=== PATIENT | female | born 1975 | race Caucasian/White ===

== ENCOUNTER 2016-03-09 10:01 | Emergency (ER) | payer OTHER ==
[2016-03-09 10:05] VITALS: BMI 29.8
--- NOTE | 2016-03-09 10:35 | PDOC ---
History of Present Illness - General History Source: Patient Exam Limitations: No Limitations - History of Present Illness Initial Comments: 03/09/16 10:36 The patient is a 40-year-old woman, accompanied by family, with a significant past medical history of anemia, gastric ulcers, gastroesophageal reflux disease who presents to the emergency department via walk-in for further evaluation of abdominal pain for 4 days. No trauma., recent injury. As per patient, she reports experiencing lower abdominal pain that has progressively worsened since onset, as she now experiences nausea and vomiting. Patient states that she believes that her pain is secondary to her history of cysts, as she had experienced similar pain in the past. Patient reports she had two surgeries, for which she does not menstruate anymore. No other complaints. No fever, chills , weakness, chest pain, urinary symptoms. Allergies: None Known Past Surgical History: Appendectomy. Cholecystectomy. Social History: No tobacco, ETOH and recreational drug use. Primary Care Physician: Dr. Raymond Aguayo [phone] <Vonnie No - Last Filed: 03/09/16 15:32> <Emmanuelle Ann - Last Filed: 03/10/16 10:10> - General Chief Complaint: Pain, Acute Stated Complaint: ABD PAIN, NAUSEA Time Seen by Provider: 03/09/16 10:29 Past History <Vonnie No - Last Filed: 03/09/16 15:32> - Past Medical History Anemia: Yes Asthma: No Cancer: No Cardiac Disorders: No CVA: No COPD: No CHF: No Dementia: No Diabetes: No GI Disorders: Yes (H/O ULCERS & ACID REFLUX) Disorders: No HTN: No Hypercholesterolemia: No Liver Disease: No Seizures: No Thyroid Disease: No - Surgical History Abdominal Surgery: No Appendectomy: Yes Cardiac Surgery: No Cholecystectomy: Yes Lung Surgery: No Neurologic Surgery: No Orthopedic Surgery: No - Psycho/Social/Smoking Cessation Hx Anxiety: No Suicidal Ideation: No Smoking Status: No Smoking History: Never smoked Have you smoked in the past 12 months: No Number of Cigarettes Smoked Daily: 0 Information on smoking cessation initiated: No Hx Alcohol Use: No Drug/Substance Use Hx: No Substance Use Type: None Hx Substance Use Treatment: No <Emmanuelle Ann - Last Filed: 03/10/16 10:10> - Past Medical History Allergies/Adverse Reactions: Allergies Allergy/AdvReac Type Severity Reaction Status Date / Time No Known Drug Allergies Allergy Verified 03/09/16 10:01 Home Medications: Ambulatory Orders Omeprazole [Prilosec (RX)] 20 mg PO DAILY 05/17/14 Cephalexin Monohydrate [Keflex -] 500 mg PO BID #14 capsule 03/09/16 Ondansetron [Zofran -] 4 mg PO TID #21 tablet 03/09/16 Oxycodone HCl/Acetaminophen [Percocet 5-325 mg Tablet] 1 tab PO Q6H PRN #12 tablet MDD 4 tabs 03/09/16 Review of Systems - Review of Systems Able to Perform ROS?: Yes Comments:: 03/09/16 10:36 GENERAL/CONSTITUTIONAL: No fever or chills. No weakness. HEAD, EYES, EARS, NOSE AND THROAT: No change in vision. No ear pain or discharge. No sore throat. CARDIOVASCULAR: No chest pain or shortness of breath. RESPIRATORY: No cough, wheezing, or hemoptysis. GASTROINTESTINAL: Yes: +Abdominal Pain. +Nausea. +Vomiting. No diarrhea or constipation. GENITOURINARY: No dysuria, frequency, or change in urination. MUSCULOSKELETAL: No joint or muscle swelling or pain. No neck or back pain. SKIN: No rash NEUROLOGIC: No headache, vertigo, loss of consciousness, or change in strength/ sensation. ENDOCRINE: No increased thirst. No abnormal weight change. HEMATOLOGIC/LYMPHATIC: No anemia, easy bleeding, or history of blood clots. ALLERGIC/IMMUNOLOGIC: No hives or skin allergy. <Vonnie No - Last Filed: 03/09/16 15:32> *Physical Exam - Vital Signs Last Vital Signs Temp Pulse Resp BP Pulse Ox 98.0 F 89 18 124/80 99 03/09/16 10:02 03/09/16 10:02 03/09/16 10:02 03/09/16 10:02 03/09/16 10:02 - Physical Exam Comments: 03/09/16 10:36 GENERAL: Awake, alert, and fully oriented, in no acute distress HEAD: No signs of trauma EYES: PERRLA, EOMI, sclera anicteric, conjunctiva clear ENT: Auricles normal inspection, hearing grossly normal, nares patent, oropharynx clear without exudates. Moist mucosa NECK: Normal ROM, supple, no lymphadenopathy, JVD, or masses LUNGS: Breath sounds equal, clear to auscultation bilaterally. No wheezes, and no crackles HEART: Regular rate and rhythm, normal S1 and S2, no murmurs, rubs or gallops ABDOMEN: Soft,there is moderate right lower quadrant tenderness to palpation, normoactive bowel sounds. No guarding, no rebound. No masses EXTREMITIES: Normal range of motion, no edema. No clubbing or cyanosis. No cords, erythema, or tenderness NEUROLOGICAL: Cranial nerves II through XII grossly intact. Normal speech <Vonnie No - Last Filed: 03/09/16 15:32> - Vital Signs Last Vital Signs Temp Pulse Resp BP Pulse Ox 98.0 F 89 18 124/80 99 03/09/16 10:02 03/09/16 10:02 03/09/16 10:02 03/09/16 10:02 03/09/16 10:02 <Emmanuelle Ann - Last Filed: 03/10/16 10:10> ED Treatment Course - LABORATORY CBC & Chemistry Diagram: 03/09/16 11:14 03/09/16 11:14 - RADIOLOGY Radiograph Interpretation: 03/09/16 15:32 EXAM: US/TRANSVAGINAL ULTRASOUND IMPRESSION: Pelvis ultrasound, transvesical and transvaginal. Compared to prior pelvis ultrasound dated 11/05/2013 The uterus measures 8 x 4.7 cm on the transvaginal images. There is a hypoechoic mass in the posterior myometrium measuring 2.1 cm consistent with a fibroid. Tiny echogenic densities at the junction of the lower uterine segment and cervical canal suggestive of tiny calcifications which are nonspecific. Endometrial stripe measures 7 mm in thickness. Note is made of a couple of tiny nabothian cysts with the largest measuring 4.5 mm. Small myometrial cyst at the fundus measuring 9 mm. Right ovary measures 2.5 x 1.7 cm with a simple cyst/dominant follicle measuring 9 x 6 mm and normal vascular flow. The left ovary measures 2.1 x 1.5 cm with a small cyst/dominant follicle measuring 8 x 8 mm with normal vascular flow. Note is made of an anechoic tubular like structure in the left adnexa that may represent a dilated fallopian tube/hydrosalpinx measuring 1.3 cm <Vonnie No - Last Filed: 03/09/16 15:32> - LABORATORY CBC & Chemistry Diagram: 03/09/16 11:14 03/09/16 11:14 <Emmanuelle Ann - Last Filed: 03/10/16 10:10> Medical Decision Making - Medical Decision Making Pain has improved with pain medication. Ultrasound shows no signs of torsion. Results discussed with patient at bedside. 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 Gave her a copy of her results for follow- up. Patient tolerated PO. Stable for DC home. <Emmanuelle Ann - Last Filed: 03/10/16 10:10> *DC/Admit/Observation/Transfer - Attestations Scribe Attestion: 03/09/16 10:36 Documentation prepared by Vonnie No, acting as medical coding instructor for Emmanuelle Ann MD. <Vonnie No - Last Filed: 03/09/16 15:32> - Discharge Dispostion Admit: No <Emmanuelle Ann - Last Filed: 03/10/16 10:10> Diagnosis at time of Disposition: Urinary tract infection Qualifiers: Urinary tract infection type: site unspecified Hematuria presence: without hematuria Qualified Code(s): N39.0 - Urinary tract infection, site not specified Ovarian cyst Qualifiers: Laterality: bilateral Qualified Code(s): N83.20 - Unspecified ovarian cysts - Discharge Dispostion Disposition: HOME Condition at time of disposition: Stable - Prescriptions Prescriptions: Cephalexin Monohydrate [Keflex -] 500 mg PO BID #14 capsule Oxycodone HCl/Acetaminophen [Percocet 5-325 mg Tablet] 1 tab PO Q6H PRN #12 tablet MDD 4 tabs PRN Reason: Severe Pain Ondansetron [Zofran -] 4 mg PO TID #21 tablet - Referrals Referrals: Raymond Aguayo MD [Primary Care Provider] - - Patient Instructions Printed Discharge Instructions: DI for Urinary Tract Infection (UTI), DI for Ovarian Cyst - Post Discharge Activity Work/School Note: Back to Work
[2016-03-09] MEDS ORDERED: SODIUM CHLORIDE 1,000 ML IV STA (10:36)
[2016-03-09] MEDS ORDERED: ONDANSETRON 4 MG/2 ML VIAL IVPUSH ONE (10:36)
[2016-03-09] MEDS ORDERED: morphine CARPU-JECT 4 MG/1 ML DISP.SYRIN IVPUSH ONE (10:36)
[2016-03-09] MEDS ORDERED: ONDANSETRON 4 MG/2 ML VIAL ONE (11:07)
[2016-03-09] MEDS ORDERED: morphine CARPU-JECT 4 MG/1 ML DISP.SYRIN ONE (11:07)
[2016-03-09 11:30] LABS: BASOPHIL 1.4 % (0-2.0); EOSINOPHIL 2.9 % (0-4.5); MCHC 33.6 g/dl (32.0-36.0); MEAN CELL VOLUME 89.2 fl (80-96); MEAN PLT VOLUME 8.3 fl (7.5-11.1); NEUTROPHILS 52.7 % (42.8-82.8); PLATELET COUNT 270 K/MM3 (134-434); RDW 13.3 % (11.6-15.6); WHITE BLOOD COUNT 5.1 K/mm3 (4.0-10.0)
[2016-03-09 11:32] LABS: URINE APPEARANCE CLOUDY; URINE BILIRUBIN NEGATIVE (NEGATIVE); URINE COLOR YELLOW; URINE GLUCOSE (UA) NEGATIVE (NEGATIVE); URINE KETONE NEGATIVE (NEGATIVE); URINE NITRITE NEGATIVE (NEGATIVE); URINE PROTEIN NEGATIVE (NEGATIVE); URINE UROBILINOGEN NEGATIVE E.U./dl (0.2-1.0)
[2016-03-09 11:34] LABS: URINE BLOOD 2+ (NEGATIVE); URINE LEUK ESTERASE 2+ (NEGATIVE)
[2016-03-09 11:36] LABS: URINE BACTERIA FEW /hpf (NONE SEEN); URINE MUCUS MANY; URINE RBC 10 /hpf (0-3); URINE WBC 20 /hpf (3-5); YEAST RARE
[2016-03-09 11:58] LABS: ALBUMIN 3.5 g/dl (3.4-5.0); ALK PHOS 78 U/L (45-117); ANION GAP 9 (8-16); BILIRUBIN,TOTAL 0.4 mg/dL (0.2-1.0); CALCIUM 8.5 mg/dL (8.5-10.1); CO2 29 mmol/L (21-32); CREATININE 0.6 mg/dL (0.55-1.02); GLUCOSE,RANDOM 91 mg/dL (74-106); SGOT/AST 14 U/L (15-37); SGPT/ALT 22 U/L (12-78); TOT PROT 7.2 g/dl (6.4-8.2)
[2016-03-09] MEDS ORDERED: CEFTRIAXONE 1 GM in DEXTROSE 5%-WATER - 50 ML IVPB ONE (12:52)
[2016-03-09] MEDS ORDERED: CEFTRIAXONE 50 ML ONE (13:22)
[2016-03-09 16:03] VITALS: BP 136/81; PULSE 74; TEMP 97.8
== END 2016-03-09 16:02 | disposition home or self-care (01) ==
LOC: JER 10:01
PROC: 3E03329 Introduction of Other Anti-infective into Peripheral Vein, Percutaneous Approach (ICD-10-PCS; principal; 2016-03-09)
PROC: 3E033NZ Introduction of Analgesics, Hypnotics, Sedatives into Peripheral Vein, Percutaneous Approach (ICD-10-PCS; 2016-03-09)
PROC: 3E033GC Introduction of Other Therapeutic Substance into Peripheral Vein, Percutaneous Approach (ICD-10-PCS; 2016-03-09)
DX: N39.0 Urinary tract infection, site not specified (principal); N83.292 Other ovarian cyst, left side; N83.291 Other ovarian cyst, right side; D64.9 Anemia, unspecified; K21.9 Gastro-esophageal reflux disease without esophagitis
CPT/HCPCS: 36415; 76830-TC; 80053; 81003; 81015; 83690; 84703; 85025; 87086; 96365; 96375; 99283-25

== ENCOUNTER 2016-09-09 12:42 | Emergency (ER) | payer OTHER ==
[2016-09-09 12:56] VITALS: BP 136/84; PULSE 74; TEMP 97.8; BMI 29.8
[2016-09-09] MEDS ORDERED: ALBUTEROL SO4 2.5/IPRATROPIUM 0.5 INH SOL 3 ML VIAL.NEB. NEB ONE (13:17)
--- NOTE | 2016-09-09 13:28 | PDOC ---
History of Present Illness - General Chief Complaint: Asthma Stated Complaint: SOB (ASTHMA) Time Seen by Provider: 09/09/16 13:14 - History of Present Illness Initial Comments: 09/09/16 13:33 Pt. is a 41 y/o female with PMH of who presents to the ED c/o chest tightness and shortness of breath. Pt. states that she felt her symptoms start last night so she tried using her Qvar inhaler. She states that it did not help her symptoms. Pt. states she ran out of her albuterol inhaler. Pt. states that her asthma was diagnosed a few months ago. She has never been hospitalized for her asthma, nor has she been intubated. Denies fevers, chills, malaise, chest pain, palpitations, light headedness, N/V/D. Past History - Travel Traveled outside of the country in the last 30 days: No Close contact w/someone who was outside of country & ill: No - Past Medical History Allergies/Adverse Reactions: Allergies Allergy/AdvReac Type Severity Reaction Status Date / Time No Known Drug Allergies Allergy Verified 09/09/16 12:53 morphine AdvReac Mild Itching Verified 09/09/16 12:53 Home Medications: Ambulatory Orders Omeprazole [Prilosec (RX)] 20 mg PO DAILY 05/17/14 Cephalexin Monohydrate [Keflex -] 500 mg PO BID #14 capsule 03/09/16 Ondansetron [Zofran -] 4 mg PO TID #21 tablet 03/09/16 Oxycodone HCl/Acetaminophen [Percocet 5-325 mg Tablet] 1 tab PO Q6H PRN #12 tablet MDD 4 tabs 03/09/16 Albuterol Sulfate Inhaler - [Ventolin HFA Inhaler -] 1 - 2 inh PO Q4H #1 inhaler 09/09/16 Anemia: Yes Asthma: Yes Cancer: No Cardiac Disorders: No CVA: No COPD: No CHF: No Dementia: No Diabetes: No GI Disorders: Yes (H/O ULCERS & ACID REFLUX) Disorders: No HTN: No Hypercholesterolemia: No Liver Disease: No Seizures: No Thyroid Disease: No - Surgical History Abdominal Surgery: No Appendectomy: Yes Cardiac Surgery: No Cholecystectomy: Yes Lung Surgery: No Neurologic Surgery: No Orthopedic Surgery: No - Psycho/Social/Smoking Cessation Hx Anxiety: No Suicidal Ideation: No Smoking Status: No Smoking History: Never smoked Have you smoked in the past 12 months: No Number of Cigarettes Smoked Daily: 0 Information on smoking cessation initiated: No Hx Alcohol Use: No Drug/Substance Use Hx: No Substance Use Type: None Hx Substance Use Treatment: No Review of Systems - Review of Systems Able to Perform ROS?: Yes Is the patient limited Bulgarian proficient: No Constitutional: No: Chills, Fever, Weakness Respiratory: Yes: Cough, Shortness of Breath, Wheezing Cardiac (ROS): Yes: Chest Tightness. No: Chest Pain, Lightheadedness, Palpitations ABD/GI: No: Diarrhea, Nausea, Vomiting All Other Systems: Reviewed and Negative *Physical Exam - Vital Signs Last Vital Signs Temp Pulse Resp BP Pulse Ox 97.8 F 74 16 136/84 100 09/09/16 12:54 09/09/16 12:54 09/09/16 12:54 09/09/16 12:54 09/09/16 12:54 - Physical Exam General Appearance: Yes: Nourished, Appropriately Dressed, Other (Sitting on exam bed, breathing easily, able to speak in full sentences. ). No: Apparent Distress Respiratory/Chest: positive: Decreased Breath Sounds (to the bases), Rhonchi ( scattered rhonchi at the bases). negative: Respiratory Distress, Accessory Muscle Use Cardiovascular: positive: Regular Rhythm, Regular Rate, S1, S2 (present). negative: Murmur Neurologic: positive: electronic video games servicer II-XII NML intact, Fully Oriented, Alert, Normal Mood/ Affect, Normal Response, Motor Strength 5/5 Medical Decision Making - Medical Decision Making 09/09/16 13:37 Patient is a 41-year-old female with past medical history of asthma presenting to the emergency department with shortness of breath and chest tightness. She has decreased lung sounds at the bases with scattered rhonchi. Will order one DuoNeb treatment now for her asthma exacerbation. Will reevaluate her when treatment has finished. Described to patient that albuterol inhaler as necessary and she feels short of breath. Her Qvar inhaler is not a rescue inhaler. 09/09/16 14:24 Pt. feels better after treatment. Lung sounds now reach the bases. Will discharge home at this time with a new prescription for an albuterol inhaler. Educated pt on inhaler use. Pt. understands all discharge instructions and all questions were answered at this time. *DC/Admit/Observation/Transfer Diagnosis at time of Disposition: Asthma exacerbation - Discharge Dispostion Disposition: HOME Condition at time of disposition: Improved Admit: No - Prescriptions Prescriptions: Albuterol Sulfate Inhaler - [Ventolin HFA Inhaler -] 1 - 2 inh PO Q4H #1 inhaler - Referrals Referrals: Raymond Aguayo MD [Primary Care Provider] - - Patient Instructions Printed Discharge Instructions: Asthma -- Adult Additional Instructions: You had a flare of your asthma. You were given a treatment in the ED today and your ventolin inhaler was refilled. Your ventolin inhaler is your rescue inhaler. Your prescribed Qvar inhaler is for daily use and should not be used when you feel an attack. Use your ventolin inhaler every four hours for the next 24 hours. Follow up with your primary care doctor in the next 72 hours. Return to the ED if you have shortness of breath, chest pain, fevers, chills, or any changes in your symptoms. - Post Discharge Activity Work/School Note: Back to Work
[2016-09-09] MEDS ORDERED: ALBUTEROL SO4 6.7 GM HFA INHALER IH PRN (14:14)
== END 2016-09-09 14:33 | disposition home or self-care (01) ==
LOC: JERFT 12:42 → JER 12:42 → JERFT 14:33
PROC: 3E0F7GC Introduction of Other Therapeutic Substance into Respiratory Tract, Via Natural or Artificial Opening (ICD-10-PCS; principal; 2016-09-09)
DX: J45.901 Unspecified asthma with (acute) exacerbation (principal)
CPT/HCPCS: 94640; 99281-25

== ENCOUNTER 2016-09-24 20:08 | Emergency (ER) | payer OTHER ==
[2016-09-24 20:15] VITALS: BP 140/77; PULSE 78; TEMP 97.8; BMI 30.8
[2016-09-24] MEDS ORDERED: RALTEGRAVIR POTASSIUM 400 MG TAB PO ONE (20:53)
[2016-09-24] MEDS ORDERED: EMTRICITABINE 200MG/TENOFOVIR 300MG PO ONE (20:53)
[2016-09-24] MEDS ORDERED: TETANUS AND DIPHTHERIA TOXOID 0.5 ML DISP.SYRIN IM ONE (20:53)
--- NOTE | 2016-09-24 21:05 | PDOC ---
Post Exposure HPI - General Chief Complaint: Blood/Body Fluid Exposure [facility] Stated Complaint: WORK RELATED Time Seen by Provider: 09/24/16 20:53 History Source: Patient Exam Limitations: No Limitations - History of Present Illness Initial Comments: 09/24/16 22:20 MY CHIEF COMPLAINT: Needlestick injury at work to right middle finger at work tonight HISTORY OF PRESENT ILLNESS: PATIENT is a 41-year-old female with a history of GERD and asthma here today due to having a needlestick injury to her right middle distal palmar finger at work tonight. Patient is an employee of [employer] works [employer]CRUZ [employer]ATH[employer]. She reports that she was using a butterfly with a 21-gauge needle prior to [facility]. Patient reports that area bled immediately and she cleansed it with antibacterial soap and water. Patient reports that she is up-to-date with tetanus. Patient is unsure whether or not she received all 3 hepatitis B vaccines. She denies any chance of had tubal ligation. Source individuals blood was not tested for HIV or hepatitis I SPOKE WITH JACQUES CARLOS RN SHE REPORTED that HIV test was not done on source individual or any hepatitis profiles. I also spoke with Dr. Alvarado Cheatham who reported that she was unable to get these tests due to branch office administrator Jesica Toro's stating that this would not be done and they're office setting JACQUES CARLOS called source individual and source individual will come to emergency room tomorrow to have HIV testing and hepatitis profile. 09/24/16 22:37 09/24/16 23:17 09/24/16 23:20 09/24/16 23:22 Timing: just prior to arrival (6:30 PM) Severity: mild Exposed Location: Right: Finger(s) (MIDDLE DISTAL PALMAR ASPECT) Assessing Significant Risk PEP: Yes Percutaneous (MIDDLE FINGER RT. DISTAL PALMAR ASPECT) Past History - Past Medical History Allergies/Adverse Reactions: Allergies No Known Drug Allergies Allergy (Verified 09/24/16 20:12) morphine Adverse Reaction (Mild, Verified 09/24/16 20:12) Itching Home Medications: Ambulatory Orders Omeprazole [Prilosec (RX)] 20 mg PO DAILY 05/17/14 General: Yes: asthma, GERD Surgical History: Yes: No Surgical History - Reproductive History LMP: 12/05/11 - Immunization History Tetanus Status: Unknown - Social History Smoking History: No Smoking Status: Never smoked Number of Ciarettes Per Day: 0 Alcohol Use: none Drug Use: none Review of Systems - Review of Systems Able to Perform ROS?: Yes Constitutional: No: Symptoms Reported HEENTM: No: Symptoms Reported Respiratory: No: Symptoms reported Cardiac (ROS): No: Symptoms Reported ABD/GI: No: Symptoms Reported : No: Symptoms Reported Musculoskeletal: No: Symptoms Reported Integumentary: Yes: Other (MIDDLE DISTAL RT. FINGER PALMAR ASPECT) Neurological: No: Symptoms reported *Physical Exam - Vital Signs Last Vital Signs Temp Pulse Resp BP Pulse Ox 97.8 F 78 18 140/77 99 09/24/16 20:12 09/24/16 20:12 09/24/16 20:12 09/24/16 20:12 09/24/16 20:12 - Physical Exam General Appearance: Yes: Appropriately Dressed Respiratory/Chest: positive: Lungs Clear, Normal Breath Sounds. negative: Chest Tender, Respiratory Distress Cardiovascular: positive: Regular Rhythm, Regular Rate, S1, S2 Integumentary: positive: Other (MIDDLE RT. DISTAL PALMAR FINGER NEEDLESTICK ) Post Exposure - ED Protocol - Exposure Treatment Washing/Decontamination: Soap/Water Source Patient HIV Status:: Unknown Is PEP indicated?: Yes Prophylaxis for HIV discussed?: Yes Prophylaxis given?: Yes Prophylaxis refused?: Yes Treatment Given:: Truvada (Tenof+Emtricita), Isentress (Raltegravir) Drug(s) Information Sheets given:: Yes Baseline bloods drawn prophylaxis:(use *Exposure-Hosp Emp): Yes Additional Treatment:: HBIG - Referrals Employee Referred to Employee Health:: Yes Employee Referred to Infectious Disease Specialist:: Dr. Martinez Medical Decision Making - Medical Decision Making 09/24/16 22:19 PATIENT is a 41-year-old female with a history of GERD and asthma here today due to having a needlestick injury to her right middle distal palmar finger at work tonight. Patient is an employee of [employer] works [place] [employer]. She reports that she was using a butterfly with a 21-gauge needle prior to [facility]. Patient reports that area bled immediately and she cleansed it with antibacterial soap and water. Patient reports that she is up-to -date with tetanus. Patient is unsure whether or not she received all 3 hepatitis B vaccines. She denies any chance of had tubal ligation. Source individuals blood was not tested for HIV or hepatitis exposure needlestick rt. middle finger at work today PLAN: URINE HCG NEG NEEDLESTICK EXPOSURE LABS I SPOKE WITH JACQUES CARLOS RN SHE REPORTED that HIV test was not done on source individual or any hepatitis profiles. I also spoke with Dr. Saeid Cheatham who reported that she was unable to get these test due to branch office administrator Jesica Toro's stating that this would not be done and they're office setting JACQUES CARLOS called source individual and source individual will come to emergency room tomorrow to have HIV testing and hepatitis profile. PEP medication given Insentress 400 mg po now Truvada 1 tab given now hepatitis B immunoglobulin 4.7 Ml IM 09/24/16 22:37 09/24/16 23:20 09/24/16 23:22 09/24/16 23:22 09/24/16 23:24 *DC/Admit/Observation/Transfer Diagnosis at time of Disposition: Needle stick injury of finger of right hand Qualifiers: Encounter type: initial encounter Qualified Code(s): S61.239A - Puncture wound without foreign body of unspecified finger without damage to nail, initial encounter - Discharge Dispostion Disposition: HOME Condition at time of disposition: Stable - Referrals Referrals: Truong Martinez MD [Staff Physician] - Raymond Aguayo MD [Primary Care Provider] - - Patient Instructions Additional Instructions: You must follow up with occupational health tomorrow You can also follow up with Dr.CRUZ CHEATHAM Continue to take medication as prescribed given to you to here today Follow up with infectious disease as soon as possible Patient voiced understanding of discharge instructions and all questions were answered - Post Discharge Activity Work/School Note: Back to Work
[2016-09-24] MEDS ORDERED: HEPATITIS B IMMUNE GLOBULIN 5 ML VIAL IM ONE (21:25)
[2016-09-24 21:34] LABS: BASOPHIL 1.2 % (0-2.0); MCH 30.2 pg (25.7-33.7); MCHC 34.3 g/dl (32.0-36.0); MEAN PLT VOLUME 8.7 fl (7.5-11.1); NEUTROPHILS 53.9 % (42.8-82.8); PLATELET COUNT 259 K/MM3 (134-434); RDW 13.3 % (11.6-15.6); WHITE BLOOD COUNT 7.6 K/mm3 (4.0-10.0)
[2016-09-24 21:59] LABS: ALBUMIN 3.9 g/dl (3.4-5.0); ANION GAP 8 (8-16); CALCIUM 9.1 mg/dL (8.5-10.1); CHOLESTEROL 242 mg/dL (50-200); CO2 30 mmol/L (21-32); CREATININE 0.7 mg/dL (0.55-1.02); GLUCOSE,RANDOM 92 mg/dL (74-106); LDH 170 U/L (84-246); SGOT/AST 17 U/L (15-37); SGPT/ALT 27 U/L (12-78); TOT PROT 7.7 g/dl (6.4-8.2)
[2016-09-24 22:00] LABS: ALK PHOS 84 U/L (45-117); BILIRUBIN,TOTAL 0.3 mg/dL (0.2-1.0)
[2016-09-24] MEDS ORDERED: HIV POST EXPOSURE PROPHYLAXIS KIT PO ONE (22:05)
[2016-09-24 22:37] LABS: HIV 1 & 2 AB NEGATIVE; HIV 1 AGp24 NEGATIVE
[2016-09-26 06:10] LABS: HEP B SURFACE AB Non Reactive (.)
== END 2016-09-24 22:46 | disposition home or self-care (01) ==
LOC: JERFT 20:08
PROC: 3E0234Z Introduction of Serum, Toxoid and Vaccine into Muscle, Percutaneous Approach (ICD-10-PCS; principal; 2016-09-24)
DX: S61.232A Puncture wound without foreign body of right middle finger without damage to nail, initial encounter (principal); W46.1XXA Contact with contaminated hypodermic needle, initial encounter; Y93.F9 Activity, other caregiving; Y92.238 Other place in hospital as the place of occurrence of the external cause; Y99.0 Civilian activity done for income or pay
CPT/HCPCS: 36415; 80053; 82465; 82977; 83615; 84100; 84478; 84703; 85025; 86704; 86706; 86803; 87340; 87389; 99281-25

== ENCOUNTER 2016-12-02 15:08 | Emergency (ER) | payer OTHER ==
[2016-12-02 15:34] VITALS: BP 121/73; PULSE 95; TEMP 98; BMI 28.8
--- NOTE | 2016-12-02 15:38 | PDOC ---
History of Present Illness - General History Source: Patient Exam Limitations: No Limitations - History of Present Illness Initial Comments: 12/02/16 15:47 The patient i s 41 year old female with significant history of appendicitis s/p appendectomy, cholecystitis s/p cholecystectomy, uterine fibroids, who presents to the ED complaining of approximately 1 week of progressively worsening left lower quadrant pain. The patient reports she noticed hematuria approximately 1 week ago and was started on Ciprofloxacin by her doctor. Since then her hematuria has resolved but she has noticed worsening left lower quadrant pain. She describes the pain as intermittent with episodes lasting several minutes at a time, ranked 10/10 in intensity. The patient also reports associated frequency and urgency of urination. She endorses chills, no fever. She denies nausea, vomiting, or diarrhea. No suprapubic pain or flank pain. LMP was approximately 5 years ago. <Meena Parra - Last Filed: 12/02/16 15:46> - History of Present Illness Initial Comments: 12/02/16 18:21 Physical exam reveals well-developed well-nourished no acute distress cheerful and cooperative. No pain at present Afebrile, vital signs normal HEENT WNL Neck supple without bruit mass or nodes Lungs clear CV regular without murmur rub or gallop Abdomen nondistended. Normal bowel sounds. Soft without mass tenderness or organomegaly. There is mild suprapubic tenderness without guarding or rebound. No CVAT Extremities no CCE Neurological intact Skin clear, no rash, adequate turgor and wet mucous membranes Pelvic exam reveals normal external genitalia. Multiparous cervix, without lesions. Moderate amount of white mucoid discharge, no erythema or induration of the vaginal mucosa suggestive of vaginitis. No cervical motion tenderness. No adnexal masses or tenderness on exam. Impression: Urinary tract symptoms persist and for approximately 1 week, cultures positive for Escherichia coli, sensitive to everything, on Cipro for several days. Still has urgency and frequency but no dysuria. Pain is intermittent, crampy, left-sided, and lasts for only minutes, pain-free between paroxysms. Rule out urinary/urethral calculus, bladder spasm, ovarian cyst, less likely diverticulitis, PID. Plan: Spiral CT of the urinary tract. If negative, pelvic examination and cultures. <Frederick Manzano - Last Filed: 12/02/16 18:29> - General Chief Complaint: Pain Stated Complaint: abdominal pain x 1week Time Seen by Provider: 12/02/16 15:23 Past History <Meena Parra - Last Filed: 12/02/16 15:46> - Past Medical History Anemia: Yes Asthma: Yes Cancer: No Cardiac Disorders: No CVA: No COPD: No CHF: No Dementia: No Diabetes: No GI Disorders: Yes (H/O ULCERS & ACID REFLUX) Disorders: No HTN: No Hypercholesterolemia: No Liver Disease: No Seizures: No Thyroid Disease: No - Surgical History Abdominal Surgery: No Appendectomy: Yes Cardiac Surgery: No Cholecystectomy: Yes Lung Surgery: No Neurologic Surgery: No Orthopedic Surgery: No - Suicide/Smoking/Psychosocial Hx Smoking Status: No Smoking History: Never smoked Have you smoked in the past 12 months: No Number of Cigarettes Smoked Daily: 0 Information on smoking cessation initiated: No Hx Alcohol Use: No Drug/Substance Use Hx: No Substance Use Type: None Hx Substance Use Treatment: No <Frederick Manzano - Last Filed: 12/02/16 18:29> - Past Medical History Allergies/Adverse Reactions: Allergies Allergy/AdvReac Type Severity Reaction Status Date / Time morphine AdvReac Mild Itching Verified 12/02/16 15:10 Home Medications: Ambulatory Orders Ciprofloxacin [Cipro (Restricted To Id)] 250 mg PO BID 12/02/16 Review of Systems - Review of Systems Able to Perform ROS?: Yes Comments:: 12/02/16 15:51 GENERAL/CONSTITUTIONAL: +Chills. No fever. No weakness. HEAD, EYES, EARS, NOSE AND THROAT: No change in vision. No ear pain or discharge. No sore throat. CARDIOVASCULAR: No chest pain or shortness of breath. RESPIRATORY: No cough, wheezing, or hemoptysis. GASTROINTESTINAL: No nausea, vomiting, diarrhea or constipation. GENITOURINARY: +LLQ pain,frequency, urgency. Hematuria (resolved). No suprapubic pain. MUSCULOSKELETAL: No joint or muscle swelling or pain. No neck or back pain. SKIN: No rash NEUROLOGIC: No headache, vertigo, loss of consciousness, or change in strength/ sensation. ENDOCRINE: No increased thirst. No abnormal weight change. HEMATOLOGIC/LYMPHATIC: No anemia, easy bleeding, or history of blood clots. ALLERGIC/IMMUNOLOGIC: No hives or skin allergy. <Meena Parra - Last Filed: 12/02/16 15:46> *Physical Exam - Vital Signs Last Vital Signs Temp Pulse Resp BP Pulse Ox 98 F 95 H 18 121/73 100 12/02/16 15:10 12/02/16 15:10 12/02/16 15:10 12/02/16 15:10 12/02/16 15:10 - Physical Exam Comments: 12/02/16 15:52 GENERAL: Awake, alert, and fully oriented. Uncomfortable appearing. HEAD: No signs of trauma EYES: PERRLA, EOMI, sclera anicteric, conjunctiva clear ENT: Auricles normal inspection, hearing grossly normal, nares patent, oropharynx clear without exudates. Moist mucosa NECK: Normal ROM, supple, no lymphadenopathy, JVD, or masses LUNGS: Breath sounds equal, clear to auscultation bilaterally. No wheezes, and no crackles HEART: Regular rate and rhythm, normal S1 and S2, no murmurs, rubs or gallops ABDOMEN: +LLQ tenderness to palpaiton. No suprapubic or CVA tenderness to palpation. Soft, normoactive bowel sounds. No guarding, no rebound. No masses EXTREMITIES: Normal range of motion, no edema. No clubbing or cyanosis. No cords, erythema, or tenderness NEUROLOGICAL: Cranial nerves II through XII grossly intact. Normal speech, normal gait SKIN: Warm, Dry, normal turgor, no rashes or lesions noted. <Meena Parra - Last Filed: 12/02/16 15:46> - Vital Signs Last Vital Signs Temp Pulse Resp BP Pulse Ox 98 F 95 H 18 121/73 100 12/02/16 15:10 12/02/16 15:10 12/02/16 15:10 12/02/16 15:10 12/02/16 15:10 <Frederick Manzano - Last Filed: 12/02/16 18:29> ED Treatment Course - ADDITIONAL ORDERS Additional order review: Laboratory Results 12/02/16 15:35 Urine Color Yellow Urine Appearance Clear Urine pH 7.0 Ur Specific Jewett 1.010 Urine Protein Negative Urine Glucose (UA) Negative Urine Ketones Negative Urine Blood Trace-lysed H Urine Nitrite Negative Urine Bilirubin Negative Urine Urobilinogen 0.2 Urine HCG, Qual Negative <Meena Parra - Last Filed: 12/02/16 15:46> - LABORATORY CBC & Chemistry Diagram: 12/02/16 16:00 12/02/16 16:00 <Frederick Manzano - Last Filed: 12/02/16 18:29> Medical Decision Making - Medical Decision Making 12/02/16 18:25 CT is negative for urinary calculi, hydronephrosis or other kidney abnormality. No sign of diverticulitis. There is stable hydrosalpinx on the left, present on prior exams. Urinalysis is clear If there was a true urinary tract infection, it seems to have cleared. The patient's symptoms are likely related to the left ovary or tube, possibly a small cyst or torsion on the fallopian tube. She has appointment with her OB/ [employer] physician in several days. She is completely comfortable between occasional episodes of pain. It's of labs and CAT scan furnished to supply her [employer] physician. Ibuprofen or Aleve recommended for pain. To follow-up as directed or return to ER if symptoms worsen <Frederick Manzano - Last Filed: 12/02/16 18:29> *DC/Admit/Observation/Transfer - Attestations Scribe Attestion: 12/02/16 15:53 Documentation prepared by Meena Parra, acting as medical office secretary for Frederick Manzano MD. <Meena Parra - Last Filed: 12/02/16 15:46> - Discharge Dispostion Admit: No <Frederick Manzano - Last Filed: 12/02/16 18:29> Diagnosis at time of Disposition: Ovarian cyst Qualifiers: Laterality: left Qualified Code(s): N83.202 - Unspecified ovarian cyst, left side - Discharge Dispostion Disposition: HOME Condition at time of disposition: Stable - Patient Instructions Printed Discharge Instructions: DI for Ovarian Cyst Additional Instructions: See Dr. Mckee as scheduled on Thursday. If pain worsens or any other symptoms develop, return to ER for further evaluation. Take ibuprofen or naproxen to control the pain. - Post Discharge Activity Forms/Work/School Notes: Back to Work
[2016-12-02 15:44] LABS: URINE APPEARANCE Clear; URINE BILIRUBIN Negative (NEGATIVE); URINE BLOOD Trace-lysed (NEGATIVE); URINE COLOR YELLOW; URINE GLUCOSE (UA) Negative (NEGATIVE); URINE KETONE Negative (NEGATIVE); URINE LEUK ESTERASE TRACE (NEGATIVE); URINE NITRITE Negative (NEGATIVE); URINE PROTEIN Negative (NEGATIVE); URINE UROBILINOGEN 0.2 (0.2-1.0)
[2016-12-02] MEDS ORDERED: KETOROLAC TROMETHAMINE 30 MG/1 ML VIAL IVPUSH ONE (15:51)
[2016-12-02] MEDS ORDERED: SODIUM CHLORIDE 1,000 ML IV STA (15:52)
[2016-12-02] MEDS ORDERED: KETOROLAC TROMETHAMINE 30 MG/1 ML VIAL ONE (16:05)
[2016-12-02 16:55] LABS: ALBUMIN 4.2 g/dl (3.5-5.0); ALK PHOS 67 U/L (32-92); BILIRUBIN,TOTAL 0.5 mg/dl (0.2-1.0); CALCIUM 8.6 mg/dl (8.4-10.2); CO2 25 mmol/L (22-28); CREATININE 0.7 mg/dl (0.6-1.3); GLUCOSE,RANDOM 109 mg/dl (74-106); SGOT/AST 23 U/L (10-42); SGPT/ALT 21 U/L (10-40); TOT PROT 7.2 g/dl (6.4-8.3)
[2016-12-02 17:15] LABS: ANION GAP 4 (8-16)
[2016-12-02 17:22] LABS: BASOPHIL 0.8 % (0-2.0); MCH 30.8 pg (25.7-33.7); MCHC 34.2 g/dl (32.0-36.0); MEAN CELL VOLUME 90.3 fl (80-96); NEUTROPHILS 58.9 % (42.8-82.8); PLATELET COUNT 280 K/MM3 (134-434); RDW 13.3 % (11.6-15.6); WHITE BLOOD COUNT 7.6 K/mm3 (4.0-10.0)
[2016-12-02 18:09] LABS: URINE BACTERIA FEW /hpf (NEGATIVE); URINE RBC 0-2 /hpf (0-3)
== END 2016-12-02 18:20 | disposition home or self-care (01) ==
LOC: FER 15:08
PROC: 3E0333Z Introduction of Anti-inflammatory into Peripheral Vein, Percutaneous Approach (ICD-10-PCS; principal; 2016-12-02)
PROC: 3E0337Z Introduction of Electrolytic and Water Balance Substance into Peripheral Vein, Percutaneous Approach (ICD-10-PCS; 2016-12-02)
DX: N83.202 Unspecified ovarian cyst, left side (principal)
CPT/HCPCS: 36415; 74176; 80053; 81003; 81015; 84703; 85025; 87491; 87591; 96361; 96374; 99282-25

== ENCOUNTER 2017-02-12 11:39 | Emergency (ER) | payer OTHER ==
[2017-02-12 11:44] VITALS: BP 145/81; PULSE 102; TEMP 97.8; BMI 28.8
--- NOTE | 2017-02-12 12:02 | PDOC ---
History of Present Illness - General Chief Complaint: Pain Stated Complaint: CHEST PAIN, ABD PAIN Time Seen by Provider: 02/12/17 12:02 - History of Present Illness Initial Comments: 41 year old female with PMH of GERD presenting with epigastric pain and diarrhea (x4) for the past few hours. States that she woke up this morning with a twisting epigastric pain and 5 episodes of non-bloody diarrhea. States that she is typically careful about her food intake because of her GERD but she did have some of the cafeteria food yesterday at [facility] it may be due to that. She has abdominal surgical history appendectomy, cholecystectomy, and x 2. GI: [place] 02/12/17 12:26 Past History - Past Medical History Allergies/Adverse Reactions: Allergies Allergy/AdvReac Type Severity Reaction Status Date / Time morphine AdvReac Mild Itching Verified 02/12/17 11:42 Home Medications: Ambulatory Orders Famotidine [Pepcid] 20 mg PO DAILY #14 tablet 02/12/17 Mag Hydrox/Al Hydrox/Simeth [Mylanta Suspension -] 30 ml PO Q6H PRN #1 bottle Anemia: Yes Asthma: Yes Cancer: No Cardiac Disorders: No CVA: No COPD: No CHF: No DVT: No Dementia: No Diabetes: No GI Disorders: Yes (H/O ULCERS & ACID REFLUX) Disorders: No HTN: No Hypercholesterolemia: No Liver Disease: No Seizures: No Thyroid Disease: No - Surgical History Abdominal Surgery: No Appendectomy: Yes Cardiac Surgery: No Cholecystectomy: Yes Lung Surgery: No Neurologic Surgery: No Orthopedic Surgery: No - Suicide/Smoking/Psychosocial Hx Smoking Status: No Smoking History: Never smoked Have you smoked in the past 12 months: No Number of Cigarettes Smoked Daily: 0 Information on smoking cessation initiated: No Hx Alcohol Use: No Drug/Substance Use Hx: No Substance Use Type: None Hx Substance Use Treatment: No Review of Systems - Review of Systems Constitutional: No: Chills, Fever, Loss of Appetite HEENTM: No: Blurred Vision Respiratory: No: Orthopnea, Shortness of Breath Cardiac (ROS): No: Chest Pain, Edema, Irregular Heart Rate ABD/GI: Yes: Diarrhea. No: Constipated, Nausea, Vomiting : No: Dysuria, Discharge, Frequency Musculoskeletal: No: Back Pain Integumentary: No: Bruising, Change in Color Neurological: No: Headache *Physical Exam - Vital Signs Last Vital Signs Temp Pulse Resp BP Pulse Ox 97.8 F 102 H 18 145/81 100 02/12/17 11:43 02/12/17 11:43 02/12/17 11:43 02/12/17 11:43 02/12/17 11:43 - Physical Exam General Appearance: Yes: Nourished, Appropriately Dressed. No: Apparent Distress HEENT: positive: EOMI, Normal Voice Neck: positive: Trachea midline, Normal Thyroid, Supple. negative: Tender, Rigid Respiratory/Chest: positive: Lungs Clear, Normal Breath Sounds. negative: Chest Tender, Respiratory Distress Cardiovascular: positive: Regular Rhythm, Regular Rate. negative: Murmur Gastrointestinal/Abdominal: positive: Normal Bowel Sounds, Flat, Soft. negative : Tender Musculoskeletal: positive: Normal Inspection. negative: CVA Tenderness Extremity: positive: Normal Inspection, Normal Range of Motion. negative: Tender Integumentary: positive: Normal Color, Dry, Warm Neurologic: positive: Fully Oriented, Alert, Normal Mood/Affect, Normal Response , Motor Strength 5/5 ED Treatment Course - LABORATORY CBC & Chemistry Diagram: 02/12/17 12:32 02/12/17 14:34 Medical Decision Making - Medical Decision Making 41 year old with PMH of peptic ulcer disease presenting with epigastric pain and diarrhea for the past 4 days. Pain was resolved with Maalox and Pepcid. All labs WNL. Patient sent home with Pepcid, Maalox, and immodium prescription along with follow up with her GI doctor ([place]) for workup of peptic ulcer disease. *DC/Admit/Observation/Transfer Diagnosis at time of Disposition: Peptic ulcer disease - Discharge Dispostion Disposition: HOME Condition at time of disposition: Improved Admit: No - Prescriptions Prescriptions: Famotidine [Pepcid] 20 mg PO DAILY #14 tablet Mag Hydrox/Al Hydrox/Simeth [Mylanta Suspension -] 30 ml PO Q6H PRN #1 bottle PRN Reason: abdominal pain - Referrals Referrals: Raymond Aguayo MD [Primary Care Provider] - Nico Nj MD [Staff Physician] - - Patient Instructions Printed Discharge Instructions: DI for Peptic Ulcer Additional Instructions: We improved your symptoms with maalox. Please use it at home as needed and take the Pepcid daily. Please see Dr. Nj as soon as you can for another scope. Please return to the ED if you have similar or worse symptoms. - Post Discharge Activity Forms/Work/School Notes: Back to Work
[2017-02-12] MEDS ORDERED: MAG HYDROX/AL HYDROX/SIMETH 30 ML UNIT-DOSE CUP PO ONE (12:25)
[2017-02-12] MEDS ORDERED: FAMOTIDINE IV 20 MG/12 ML VIAL IVPB ONE (12:25)
[2017-02-12] MEDS ORDERED: SODIUM CHLORIDE 0.9% 1000 ML INFUS.BAG IV ONE (12:30)
[2017-02-12] MEDS ORDERED: FAMOTIDINE 20 MG/50 ML IVPB 20 MG/50 ML MG IVPB ONE (12:41)
[2017-02-12] MEDS ORDERED: MAG HYDROX/AL HYDROX/SIMETH 30 ML UNIT-DOSE CUP ONE (12:41)
[2017-02-12 12:50] LABS: BASO % 0.5 % (0-2.0); EOS % 0.3 % (0-4.5); MCH 29.8 pg (25.7-33.7); MCHC 33.5 g/dl (32.0-36.0); MEAN CELL VOLUME 88.8 fl (80-96); NEUT % 86.9 % (42.8-82.8); PLATELET COUNT 268 K/MM3 (134-434); RDW 13.1 % (11.6-15.6); WHITE BLOOD COUNT 8.9 K/mm3 (4.0-10.0)
[2017-02-12 12:57] LABS: URINE APPEARANCE SLCLOUDY; URINE BILIRUBIN NEGATIVE (NEGATIVE); URINE BLOOD 1+ (NEGATIVE); URINE COLOR YELLOW; URINE GLUCOSE (UA) NEGATIVE (NEGATIVE); URINE KETONE 1+ (NEGATIVE); URINE LEUK ESTERASE NEGATIVE (NEGATIVE); URINE NITRITE NEGATIVE (NEGATIVE); URINE PROTEIN NEGATIVE (NEGATIVE); URINE UROBILINOGEN NEGATIVE mg/dL (0.2-1.0)
[2017-02-12 13:01] LABS: URINE BACTERIA RARE /hpf (NONE SEEN); URINE MUCUS RARE; URINE RBC 4 /hpf (0-3); URINE WBC 2 /hpf (3-5)
--- NOTE | 2017-02-12 13:12 | PDOC ---
Attending Attestation - Resident Resident Name: Pieter Cartwright - ED Attending Attestation I have performed the following: I have examined & evaluated the patient, The case was reviewed & discussed with the resident, I agree w/resident's findings & plan, Exceptions are as noted - HPI HPI: 02/12/17 13:11 Abdominal Pain and Diarrhea - Physicial Exam PE: 02/12/17 13:11 Tender in LLQ/RLQ - Medical Decision Making 02/12/17 13:[address] Cartwright's Assessment and Plan
[2017-02-12 14:40] LABS: URINE LEUK ESTERASE Negative (NEGATIVE)
[2017-02-12 15:08] LABS: ALBUMIN 3.2 g/dl (3.4-5.0); ALK PHOS 83 U/L (45-117); ANION GAP 8 (8-16); BILIRUBIN,TOTAL 0.5 mg/dL (0.2-1.0); CALCIUM 7.7 mg/dL (8.5-10.1); CO2 25 mmol/L (21-32); CREATININE 0.4 mg/dL (0.55-1.02); GLUCOSE,RANDOM 95 mg/dL (74-106); SGOT/AST 24 U/L (15-37); SGPT/ALT 25 U/L (12-78); TOT PROT 6.6 g/dl (6.4-8.2)
--- NOTE | 2017-02-18 12:58 | EKG ---
Test Reason : Blood Pressure : / mmHG Vent. Rate : 093 BPM Atrial Rate : 093 BPM P-R Int : 148 ms QRS Dur : 094 ms QT Int : 356 ms P-R-T Axes : 058 049 059 degrees QTc Int : 442 ms NORMAL SINUS RHYTHM NORMAL ECG WHEN COMPARED WITH ECG OF 17-MAY-2014 15:04, NO SIGNIFICANT CHANGE WAS FOUND Confirmed by AMEENA HUTCHINSON MD ([id number]) on 02/18/2017 12:58:20 PM Referred By: Confirmed By:AMEENA HUTCHINSON MD
== END 2017-02-12 16:21 | disposition home or self-care (01) ==
LOC: JER 11:39
PROC: 3E0337Z Introduction of Electrolytic and Water Balance Substance into Peripheral Vein, Percutaneous Approach (ICD-10-PCS; principal; 2017-02-12)
DX: K27.9 Peptic ulcer, site unspecified, unspecified as acute or chronic, without hemorrhage or perforation (principal); D64.9 Anemia, unspecified; J45.909 Unspecified asthma, uncomplicated
CPT/HCPCS: 36415; 80053; 81003; 81015; 83690; 83735; 84703; 85025; 93005; 93010; 99283-25

== ENCOUNTER 2017-06-21 20:40 | Emergency (ER) | payer OTHER ==
[2017-06-21 20:51] VITALS: BP 133/80; PULSE 79; TEMP 97.8; BMI 29.2
--- NOTE | 2017-06-21 23:04 | PDOC ---
History of Present Illness - General History Source: Patient Exam Limitations: No Limitations - History of Present Illness Initial Comments: 06/21/17 23:49 The patient is a 41 year old female with significant PMH of anemia, gastric ulcers, and gastroesophageal reflux disease who presents to the emergency department with left calf pain. The patient states she had a varicose vein surgery recently on her thigh and subsequently began to develop left calf pain. The patient came in to the ER today as she was concerned about a clot. The patient denies chest pain, shortness of breath, headache and dizziness. Denies fever, chills, nausea, vomit, diarrhea and constipation. Denies dysuria, frequency, urgency and hematuria. Allergies: NKA Past surgical history: Appendectomy, Cholecystectomy. Social history: No reported alcohol, drug, or cigarette use. PCP: Dr. Aguayo <Yasmin Murry - Last Filed: 06/21/17 23:52> <oGgo Garcia - Last Filed: 06/22/17 01:32> - General Chief Complaint: Edema Stated Complaint: PAIN Time Seen by Provider: 06/21/17 22:52 Past History <Yasmin Murry - Last Filed: 06/21/17 23:52> - Past Medical History Anemia: Yes Asthma: Yes Cancer: No Cardiac Disorders: No CVA: No COPD: No CHF: No DVT: No Dementia: No Diabetes: No GI Disorders: Yes (H/O ULCERS & ACID REFLUX) Disorders: No HTN: No Hypercholesterolemia: No Liver Disease: No Seizures: No Thyroid Disease: No - Surgical History Abdominal Surgery: No Appendectomy: Yes Cardiac Surgery: No Cholecystectomy: Yes Lung Surgery: No Neurologic Surgery: No Orthopedic Surgery: No - Suicide/Smoking/Psychosocial Hx Smoking Status: No Smoking History: Never smoked Have you smoked in the past 12 months: No Number of Cigarettes Smoked Daily: 0 Information on smoking cessation initiated: No Hx Alcohol Use: No Drug/Substance Use Hx: No Substance Use Type: None Hx Substance Use Treatment: No <Gogo Garcia - Last Filed: 06/22/17 01:32> - Past Medical History Allergies/Adverse Reactions: Allergies Allergy/AdvReac Type Severity Reaction Status Date / Time morphine AdvReac Mild Itching Verified 02/12/17 11:42 Home Medications: Ambulatory Orders Famotidine [Pepcid] 20 mg PO DAILY #14 tablet 12/14/17 Mag Hydrox/Al Hydrox/Simeth [Mylanta Suspension -] 30 ml PO Q6H PRN #1 bottle Review of Systems - Review of Systems Able to Perform ROS?: Yes Comments:: 06/21/17 23:50 GENERAL/CONSTITUTIONAL: No fever or chills. No weakness. HEAD, EYES, EARS, NOSE AND THROAT: No change in vision. No ear pain or discharge. No sore throat. CARDIOVASCULAR: No chest pain or shortness of breath. RESPIRATORY: No cough, wheezing, or hemoptysis. GASTROINTESTINAL: No nausea, vomiting, diarrhea or constipation. GENITOURINARY: No dysuria, frequency, or change in urination. MUSCULOSKELETAL: (+) Left calf pain. No neck or back pain. SKIN: No rash NEUROLOGIC: No headache, vertigo, loss of consciousness, or change in strength/ sensation. ENDOCRINE: No increased thirst. No abnormal weight change. HEMATOLOGIC/LYMPHATIC: No anemia, easy bleeding, or history of blood clots. ALLERGIC/IMMUNOLOGIC: No hives or skin allergy. <Yasmin Murry - Last Filed: 06/21/17 23:52> *Physical Exam - Vital Signs Last Vital Signs Temp Pulse Resp BP Pulse Ox 97.8 F 79 20 133/80 100 06/21/17 20:45 06/21/17 20:45 06/21/17 20:45 06/21/17 20:45 06/21/17 20:45 - Physical Exam Comments: 06/21/17 23:52 GENERAL: Awake, alert, and fully oriented, in no acute distress HEAD: No signs of trauma EYES: PERRLA, EOMI, sclera anicteric, conjunctiva clear ENT: Auricles normal inspection, hearing grossly normal, nares patent, oropharynx clear without exudates. Moist mucosa NECK: Normal ROM, supple, no lymphadenopathy, JVD, or masses LUNGS: Breath sounds equal, clear to auscultation bilaterally. No wheezes, and no crackles HEART: Regular rate and rhythm, normal S1 and S2, no murmurs, rubs or gallops ABDOMEN: Soft, nontender, normoactive bowel sounds. No guarding, no rebound. No masses EXTREMITIES:(+) Left calf swelling. Mild bruising to the left lateral calf. Full extension and flexion. bp/dp pulses 2+. No clubbing or cyanosis. No cords or erythema. NEUROLOGICAL: Cranial nerves II through XII grossly intact. Normal speech, normal gait SKIN: Warm, Dry, normal turgor, no rashes or lesions noted. <Yasmin Murry - Last Filed: 06/21/17 23:52> - Vital Signs Last Vital Signs Temp Pulse Resp BP Pulse Ox 97.8 F 79 20 133/80 100 06/21/17 20:45 06/21/17 20:45 06/21/17 20:45 06/21/17 20:45 06/21/17 20:45 <Gogo Garcia - Last Filed: 06/22/17 01:32> Medical Decision Making - Medical Decision Making 06/22/17 01:26 duplex Doppler of the left lower extremity is negative for any deep vein thrombosis. Air is only superficial thrombophlebitis and varicose vein of the anterior lateral proximal to the mid lower leg as well in a portion of the greater saphenous vein in the inguinal region. This patient did have varicose vein surgery done within the past 10 days <Gogo Garcia - Last Filed: 06/22/17 01:32> *DC/Admit/Observation/Transfer - Attestations Scribe Attestion: 06/21/17 23:54 Documentation prepared by Yasmin Murry, acting as medical doctor md for Gogo Garcia MD. <Yasmin Murry - Last Filed: 06/21/17 23:52> <Gogo Garcia - Last Filed: 06/22/17 01:32> Diagnosis at time of Disposition: Superficial thrombophlebitis of left leg - Discharge Dispostion Disposition: HOME Condition at time of disposition: Stable - Referrals Referrals: Raymond Aguayo MD [Primary Care Provider] - - Patient Instructions Printed Discharge Instructions: DI for Superficial Thrombophlebitis Additional Instructions: Please read your directions for superficial thrombophlebitis Follow up with your doctor - Post Discharge Activity Forms/Work/School Notes: Back to Work
== END 2017-06-22 01:41 | disposition home or self-care (01) ==
LOC: JER 20:40
DX: I80.02 Phlebitis and thrombophlebitis of superficial vessels of left lower extremity (principal); K21.9 Gastro-esophageal reflux disease without esophagitis; Z86.2 Personal history of diseases of the blood and blood-forming organs and certain disorders involving the immune mechanism
CPT/HCPCS: 93971-TC; 99282-25

== ENCOUNTER 2017-11-30 06:01 | Emergency (ER) | payer OTHER ==
[2017-11-30] MEDS ORDERED: KETOROLAC TROMETHAMINE 30 MG/1 ML VIAL IM ONE (06:36)
[2017-11-30 06:47] VITALS: BP 132/71; PULSE 68; TEMP 98.3; BMI 30.1
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
[2017-11-30] MEDS ORDERED: KETOROLAC TROMETHAMINE 30 MG/1 ML VIAL ONE (07:47)
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
== END 2017-11-30 10:14 | disposition home or self-care (01) ==
LOC: JER 06:01
DX: S93.402A Sprain of unspecified ligament of left ankle, initial encounter (principal); W17.2XXA Fall into hole, initial encounter; Y93.01 Activity, walking, marching and hiking; Y92.414 Local residential or business street as the place of occurrence of the external cause; Y99.8 Other external cause status
CPT/HCPCS: 73610-TC-LT-FY; 73630-TC-LT; 99281-25

== ENCOUNTER 2018-04-25 15:10 | Emergency (ER) | payer OTHER ==
[2018-04-25 15:26] VITALS: BMI 31.8
[2018-04-25] MEDS ORDERED: IBUPROFEN 400 MG TABLET (FP) PO ONE ×2 (16:29→16:38)
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
[2018-04-25 16:58] LABS: EOS % 1.1 % (0-4.5); HEMATOCRIT 42.3 % (32.4-45.2); HEMOGLOBIN 14.7 GM/dL (10.7-15.3); LYMPH % 19.2 % (8-40); MCH 31.3 pg (25.7-33.7); MCHC 34.7 g/dl (32.0-36.0); MEAN CELL VOLUME 90.2 fl (80-96); MEAN PLT VOLUME 8.1 fl (7.5-11.1); MONO % 7.6 % (3.8-10.2); NEUT % 71.1 % (42.8-82.8); PLATELET COUNT 295 K/MM3 (134-434); RDW 13.3 % (11.6-15.6); WHITE BLOOD COUNT 8.6 K/mm3 (4.0-10.0)
[2018-04-25 17:10] LABS: INR 1.03 (0.83-1.09); PROTHROMBIN TIME (PATIENT) 12.1 SEC (9.7-13.0)
[2018-04-25 17:32] LABS: ALBUMIN 3.7 g/dl (3.4-5.0); ALK PHOS 82 U/L (45-117); ANION GAP 8 MMOL/L (8-16); BILIRUBIN,TOTAL 0.3 mg/dL (0.2-1); BLOOD UREA NITROGEN 13 mg/dL (7-18); CALCIUM 8.6 mg/dL (8.5-10.1); CHLORIDE 104 mmol/L (98-107); CO2 25 mmol/L (21-32); CREATININE 0.5 mg/dL (0.55-1.3); GLUCOSE,RANDOM 94 mg/dL (74-106); POTASSIUM 4.5 mmol/L (3.5-5.1); SGOT/AST 35 U/L (15-37); SGPT/ALT 32 U/L (13-61); SODIUM 138 mmol/L (136-145); TOT PROT 7.6 g/dl (6.4-8.2)
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
[2018-04-25 18:03] VITALS: TEMP 98.7
[2018-04-25 19:26] VITALS: BP 123/63; PULSE 80
== END 2018-04-25 19:26 | disposition home or self-care (01) ==
LOC: JER 15:10
DX: M79.652 Pain in left thigh (principal); V03.10XA Pedestrian on foot injured in collision with car, pick-up truck or van in traffic accident, initial encounter; Y92.481 Parking lot as the place of occurrence of the external cause; Y93.89 Activity, other specified; Y99.8 Other external cause status
CPT/HCPCS: 36415; 72100-TC-FY; 72170-TC-FY; 73552-TC-LT-FY; 73590-TC-LT-FY; 73610-TC-LT-FY; 73630-TC-LT; 80053; 82550; 85025; 85610; 85730; 86850; 86900; 86901; 99283-25

== ENCOUNTER 2019-10-31 14:07 | Emergency (ER) | payer OTHER ==
[2019-10-31 14:15] VITALS: BP 135/77; PULSE 88; TEMP 97.3; BMI 31.1
--- NOTE | 2019-10-31 14:16 | PDOC ---
Rapid Medical Evaluation Time Seen by Provider: 10/31/19 14:13 Medical Evaluation: Allergies Allergy/AdvReac Type Severity Reaction Status Date / Time morphine AdvReac Mild Itching Verified 10/31/19 14:12 10/31/19 14:14 CC: dizziness this am, now with continual tingling to face and feels off On brief exam: vss Patient ordered for: head ct, labs Pt to proceed to the ED
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
[2019-10-31 15:57] LABS: BASO % 0.9 % (0-2.0); EOS % 2.1 % (0-4.5); HEMATOCRIT 39.1 % (32.4-45.2); HEMOGLOBIN 13.4 GM/dL (10.7-15.3); LYMPH % 32.5 % (8-40); MCH 30.5 pg (25.7-33.7); MCHC 34.2 g/dl (32.0-36.0); MEAN CELL VOLUME 89.2 fl (80-96); MEAN PLT VOLUME 8.7 fl (7.5-11.1); MONO % 8.9 % (3.8-10.2); NEUT % 55.6 % (42.8-82.8); PLATELET COUNT 278 K/MM3 (134-434); RBC 4.38 M/mm3 (3.60-5.2); RDW 13.1 % (11.6-15.6); WHITE BLOOD COUNT 6.3 K/mm3 (4.0-10.0)
[2019-10-31 16:03] LABS: EPI CELLS >36 /uL (0-25.1); HCG,QUALITATIVE URINE Negative; HYALINE CASTS 11 /uL (0-3.1); PH,URINE 7.5 (5.0-8.0); URINE APPEARANCE CLOUDY; URINE BACTERIA 4971 /uL (0-1359); URINE BILIRUBIN NEGATIVE (NEGATIVE); URINE COLOR YELLOW; URINE GLUCOSE (UA) NEGATIVE (NEGATIVE); URINE KETONE NEGATIVE (NEGATIVE); URINE LEUK ESTERASE 1+ (NEGATIVE); URINE NITRITE NEGATIVE (NEGATIVE); URINE PROTEIN NEGATIVE (NEGATIVE); URINE WBC 58 /uL (0-25.8)
[2019-10-31 16:35] LABS: URINE RBC 37.2 /uL (0-23.9)
[2019-10-31 16:53] LABS: ALBUMIN 3.7 g/dl (3.4-5.0); ALK PHOS 78 U/L (45-117); ANION GAP 4 MMOL/L (8-16); BILIRUBIN,TOTAL 0.3 mg/dL (0.2-1); BLOOD UREA NITROGEN 10.6 mg/dL (7-18); CALCIUM 8.3 mg/dL (8.5-10.1); CHLORIDE 103 mmol/L (98-107); CO2 32 mmol/L (21-32); CREATININE 0.7 mg/dL (0.55-1.3); GLUCOSE,RANDOM 108 mg/dL (74-106); POTASSIUM 3.7 mmol/L (3.5-5.1); SGOT/AST 23 U/L (15-37); SGPT/ALT 32 U/L (13-61); SODIUM 139 mmol/L (136-145); TOT PROT 7.5 g/dl (6.4-8.2)
--- NOTE | 2019-11-01 10:38 | EKG ---
Test Reason : Blood Pressure : / mmHG Vent. Rate : 089 BPM Atrial Rate : 089 BPM P-R Int : 146 ms QRS Dur : 098 ms QT Int : 390 ms P-R-T Axes : 059 049 050 degrees QTc Int : 474 ms NORMAL SINUS RHYTHM NORMAL ECG WHEN COMPARED WITH ECG OF 12-FEB-2017 11:47, NO SIGNIFICANT CHANGE WAS FOUND Confirmed by Yo Rob MD ([id number]) on 11/01/2019 10:37:32 AM Referred By: Confirmed By:Yo Rob MD
== END 2019-10-31 17:13 | disposition home or self-care (01) ==
LOC: JER 14:07
DX: R42 Dizziness and giddiness (principal)
CPT/HCPCS: 36415; 70450-TC; 80053; 81003; 82550; 84484; 84703; 85025; 93005; 93010; 99285-25

== ENCOUNTER 2019-11-18 05:20 | Day surgery (SDC) | payer OTHER ==
[2019-11-17 11:42] VITALS: BMI 31.1
--- OUTSIDE RECORDS SUMMARY | 2019-11-18 05:27 | XMS ---
:1975 Author Organization [facility] Care Team Providers Name Role Phone Chumaceiro, Wolfgang Unavailable Unavailable Chumaceiro, Wolfgang Unavailable Unavailable Chumaceiro, Wolfgang Unavailable Unavailable Chumaceiro, Wolfgang Unavailable Unavailable Chumaceiro, Wolfgang Unavailable Unavailable Chumaceiro, Wolfgang Unavailable Unavailable Chumaceiro, Wolfgang Unavailable Unavailable Chumaceiro, Wolfgang Unavailable Unavailable DiGiorno, Christopher Unavailable [phone] DiGiorno, Christopher Unavailable [phone] DiGiorno, Christopher Unavailable [phone] CLEVE, NEW Unavailable Unavailable MD Tremaine Boyd Unavailable Unavailable RULA NAPIER Unavailable Unavailable KARENA LAGUERRE Unavailable KARENA LAGUERRE Unavailable Re-disclosure Warning The records that you are about to access may contain information from federally- assisted alcohol or drug abuse programs. If such information is present, then the following federally mandated warning applies: This information has been disclosed to you from records protected by federal confidentiality rules (42 CFR part 2). The federal rules prohibit you from making any further disclosure of this information unless further disclosure is expressly permitted by the written consent of the person to whom it pertains or as otherwise permitted by 42 CFR part 2. A general authorization for the release of medical or other information is NOT sufficient for this purpose. The Federal rules restrict any use of the information to criminally investigate or prosecute any alcohol or drug abuse patient.The records that you are about to access may contain highly sensitive health information, the redisclosure of which is protected by Article 27-F of the [facility] Public Health law. If you continue you may haveaccess to information: Regarding HIV / AIDS; Provided by facilities licensed or operated by the [facility] Office of Mental Health; or Provided by the [facility] Office for People With Developmental Disabilities. If such information is present, then the following [facility] mandated warning applies: This information has been disclosed to you from confidential records which are protected by state law. State law prohibits you from making any further disclosure of this information without the specific written consent of the person to whom it pertains, or as otherwise permitted by law. Any unauthorized further disclosure in violation of state law may result in a fine or long term sentence or both. A general authorization for the release of medical or other information is NOT sufficient authorization for further disclosure. Allergies and Adverse Reactions Type Description Substance Reaction Status Data Source(s ) Drug allergy MORPHINE Morphine Active MEDGEN ([facility]) Drug allergy MORPHINE Morphine Active MEDGEN ([facility]) Drug allergy MORPHINE Synonym(s): Active MEDGEN ( [facility] 7,9-TNDZJOCOX-0,5-EP ) [id number], (5.ALPHA.,6.ALPHA.)- ; MORPHINE (ANHYDROUS); MORPHINE [MN]; MORPHINE [VANDF]; HYDROMORPHONE HYDROCHLORIDE SPECIFIED IMPURITY C [EP]; HYDROCODONE HYDROGEN TARTRATE 2.5-HYDRATE SPECIFIED IMPURITY A [EP]; HYDROMORPHONE HYDROCHLORIDE IMPURITY, MORPHINE- [FCI]; MORPHINE ANHYDROUS; ANHYDROUS MORPHINE; MORPHIUM; MORPHINE [HSDB]; MORPHINE EXTENDED RELEASE; MORPHINE (ANHYDROUS) [VANDF]; (5.ALPHA.,6.ALPHA.)- 7,1-HGADHYYJW-1,5-EP TVX-35-NITGPQJMVCXSH AN-3,6-DIOL; MORPHIA; MORPHINE [MART.]; MORPHINE [WHO-DD]; 7,5-JYJGVBCVT-0,5.AL PHA.-NQUTW-05-BGDMES MORPHINAN-3,6.ALPHA. -DIOL; APOMORPHINE HYDROCHLORIDE HEMIHYDRATE IMPURITY B [EP]; DIHYDROCODEINE HYDROGEN TARTRATE IMPURITY B [EP] Drug allergy morphine Morphine Localized Active [facility] swelling of skin Encounters Encounter Providers Location Date Indications Data Source(s ) Attender: Gareth 10/26/2019 MED GEN ([facility] 12:00:00 AM [facility], ) EDT Office Attender: Gareth 10/26/2019 12:00:00 AM ED T MEDGEN ([facility], ) Office Attender: Gareth 10/26/2019 12:00:00 AM ED T MEDGEN ([facility], ) Office Attender: Wolfgang 10/06/2019 12:00:00 AM EDT MEDGEN ([facility]) Office Attender: KARENA LAGUERRE 09/19/2019 12:00:00 AM EDT MEDGEN ([facility]) Office Attender: KARENA LAGUERRE 09/19/2019 12:00:00 AM EDT MEDGEN ([facility]) Office Outpatient Attender: QUYEN 07/06/2019 02:56:00 [facility]EN, PM EDT [facility] Z03.818 S Attender: MD [facility] ICU-AMB SURG 08/27/2018 09:38:28 [facility] Sharron Boyd AM EDT - 08/30/2018 Hospi dorian 03:16:00 PM EDT Outpatient Attender: MD [facility] ICU-ORTHO 08/19/2018 09:13:00 [facility] Sharron Boyd AM EDT - 08/19/2018 Hospi dorian 11:59:00 PM EDT Patient discharged. Outpatient Attender: CLEVE, 06/21/2018 06:00:00 I80.02 [facility] ROMEOAdmitter: ROBB POON EDT [facility] Care ROMEOReferrer: Jax POON maylin NEW I80.02 Immunizations Vaccine Date Status Description Data Source(s) As of October 1998, a 04/06/2017 completed MEDG EN ([facility] 2-dose hepatitis B 12:00:00 AM EST Medica l, PC) schedule for adolescents (11-15 year olds) was FDA approved for Merck's Recombivax HB adult formulation. Use code 43 for the 2-dose. This code should be used for any use of standard adult formulation of hepatitis B vaccine. As of October 1998, a 04/06/2017 completed MEDG EN ([facility] 2-dose hepatitis B 12:00:00 AM EST Medica l, PC) schedule for adolescents (11-15 year olds) was FDA approved for Merck's Recombivax HB adult formulation. Use code 43 for the 2-dose. This code should be used for any use of standard adult formulation of hepatitis B vaccine. As of October 1998, a 04/06/2017 completed MEDG EN ([facility] 2-dose hepatitis B 12:00:00 AM EST Medica l, PC) schedule for adolescents (11-15 year olds) was FDA approved for Merck's Recombivax HB adult formulation. Use code 43 for the 2-dose. This code should be used for any use of standard adult formulation of hepatitis B vaccine. Medications Medication Brand Start Product Dose Route Administrative Pharmacy [facility] Indications Reaction Description Data Name Date Form Instructions Instructions Source(s) Famotidine FAMOTI 10/25/ TABLET 60 complet FAMOT IDINE [facility] (St 40 MG Oral DINE:2 2019 ed [facility] Tablet 47018 12:00: Medical, FAMOTIDINE: 00 AM PC) [id number] EDT Albuterol ALBUTE 05/23/ SOLUTION 120 complet ALBU TEROL [facility] (St 0.83 MG/ML ROL 2019 ed SULFATE [facility] Inhalant SULFAT 12:00: Medical , Solution E:6302 00 AM PC) ALBUTEROL 08 EDT SULFATE:630 208 Albuterol ALBUTE 05/23/ SOLUTION 120 complet ALBU TEROL MED[facility] (St 0.83 MG/ML [facility] 2019 ed SULFATE [facility] Inhalant SULFAT 12:00: Medical , Solution E:6302 00 AM PC) ALBUTEROL 08 EDT SULFATE:630 208 Albuterol ALBUTE 05/23/ SOLUTION 120 complet ALBU TEROL MEDGEN (St 0.83 MG/ML [facility] 2019 ed SULFATE [facility] Inhalant SULFAT 12:00: Medical , Solution E:6302 00 AM PC) ALBUTEROL 08 EDT SULFATE:630 208 NEBULIZER complet NEBULIZER MEDGEN (St DEVICE: 2020 ed DEVICE [facility] 12:00: Medical, 00 AM PC) EST NEBULIZER complet NEBULIZER MEDGEN (St DEVICE: 2020 ed DEVICE [facility] 12:00: Medical, 00 AM PC) EST Albuterol ALBUTE 03/07/ SOLUTION 120 complet ALBU TEROL MED[facility] (St 0.83 MG/ML [facility] 2019 ed SULFATE [facility] Inhalant SULFAT 12:00: Medical , Solution E:6302 00 AM PC) ALBUTEROL 08 EST SULFATE:630 208 Albuterol ALBUTE 03/07/ SOLUTION 120 complet ALBU TEROL MED[facility] (St 0.83 MG/ML [facility] 2019 ed SULFATE [facility] Inhalant SULFAT 12:00: Medical , Solution E:6302 00 AM PC) ALBUTEROL 08 EST SULFATE:630 208 NEBULIZER complet NEBULIZER MEDGEN (St DEVICE: 2020 ed DEVICE [facility] 12:00: Medical, 00 AM PC) EST Albuterol ALBUTE 03/07/ SOLUTION 120 complet ALBU TEROL MEDGEN (St 0.83 MG/ML [facility] 2019 ed SULFATE [facility] Inhalant SULFAT 12:00: Medical , Solution E:6302 00 AM PC) ALBUTEROL 08 EST SULFATE:630 208 Amoxicillin AMOXIC 11/29/ TABLET 10 complet AMOX ICILLIN- MED[facility] (St 500 MG / ILLIN- 2018 ed CLAVULANATE [facility] Clavulanate CLAVUL 12:00: Medi norberto, 125 MG Oral ANATE: 00 AM PC) Tablet [id number] EDT AMOXICILLIN -CLAVULANAT E:[id number] Amoxicillin AMOXIC 11/29/ TABLET 10 complet AMOX ICILLIN- MED[facility] (St 500 MG / ILLIN- 2018 ed CLAVULANATE [facility] Clavulanate CLAVUL 12:00: Medi norberto, 125 MG Oral ANATE: 00 AM PC) Tablet [id number] EDT AMOXICILLIN -CLAVULANAT E:294006 Amoxicillin AMOXIC 11/29/ TABLET 10 complet AMOX ICILLIN- MED[facility] (St 500 MG / ILLIN- 2019 ed CLAVULANATE Stacy lucass Clavulanate CLAVUL 12:00: Medi norberto, 125 MG Oral ANATE: 00 AM PC) Tablet [id number] EDT AMOXICILLIN -CLAVULANAT E:198030 PERCOCET 11/30/ TABLET 30 complet PERCOCET [facility] (St 5325:2017 ed 5/325 [facility] 3 12:00: Medical, 00 AM PC) EDT PERCOCET 11/30/ TABLET 30 complet PERCOCET MED[facility] (St 5325:2017 ed 5/325 [facility] 3 12:00: Medical, 00 AM PC) EDT PERCOCET 11/30/ TABLET 30 complet PERCOCET MED[facility] (St 325:2017 ed 5/325 [facility] 3 12:00: Medical, 00 AM PC) EDT terconazole TERCON 11/26/ CREAM 1 complet TERCO NAZOLE [facility] (St 4 MG/ML AZOLE 2017 ed TOPICAL [facility] Vaginal TOPICA 12:00: Medical, Cream L:3132 00 AM PC) TERCONAZOLE 26 EDT TOPICAL:313 226 Ondansetron ONDANS 11/26/ TABLET 40 complet ONDA NSETRON [facility] (St 4 MG Oral ETRON: 2017 ed [facility] Tablet [id number] 12:00: Medical, ONDANSETRON 00 AM PC) :[id number] EDT Ondansetron ONDANS 11/26/ TABLET 40 complet ONDA NSETRON [facility] (St 4 MG Oral ETRON: 2017 ed [facility] Tablet [id number] 12:00: Medical, ONDANSETRON 00 AM PC) :[id number] EDT terconazole TERCON 11/26/ CREAM 1 complet TERCO NAZOLE [facility] (St 4 MG/ML AZOLE 2017 ed TOPICAL [facility] Vaginal TOPICA 12:00: Medical, Cream L:3132 00 AM PC) TERCONAZOLE 26 EDT TOPICAL:313 226 Ondansetron ONDANS 11/26/ TABLET 40 complet ONDA NSETRON [facility] (St 4 MG Oral ETRON: 2018 ed [facility] Tablet [id number] 12:00: Medical, ONDANSETRON 00 AM PC) :130155 EDT terconazole TERCON 11/26/ CREAM 1 complet TERCO NAZOLE [facility] (St 4 MG/ML AZOLE 2018 ed TOPICAL [facility] Vaginal TOPICA 12:00: Medical, Cream L:3132 00 AM PC) TERCONAZOLE 26 EDT TOPICAL:313 226 NITROFURANT 11/09/ CAPSULE 14 complet NITRO FURANTO MED[facility] (St OIN:498441 1636 ed [place] [facility] 12:00: Medical, 00 AM PC) EDT NITROFURANT 11/09/ CAPSULE 14 complet NITRO FURANTO MEDGEN (St OIN:376018 2376 ed IN [facility] 12:00: Medical, 00 AM PC) EDT NITROFURANT 11/09/ CAPSULE 14 complet NITRO FURANTO MEDGEN (St OIN:437918 8656 ed IN [facility] 12:00: Medical, 00 AM PC) EDT 120 ACTUAT FLOVEN 08/26/ AEROSOL 1 complet FLOV ENT HFA [facility] (St Fluticasone T 2018 ed [facility] propionate HFA:89 12:00: Medic al, 0.11 6001 00 AM PC) MG/ACTUAT EDT Metered Dose Inhaler [Flovent] FLOVENT HFA:927774 120 ACTUAT FLOVEN 08/26/ AEROSOL 1 complet FLOV ENT HFA [facility] (St Fluticasone T 2018 ed [facility] propionate HFA:89 12:00: Medic al, 0.11 6001 00 AM PC) MG/ACTUAT EDT Metered Dose Inhaler [Flovent] FLOVENT HFA:474158 120 ACTUAT FLOVEN 08/26/ AEROSOL 1 complet FLOV ENT HFA MED[facility] (St Fluticasone T 2018 ed [facility] propionate HFA:89 12:00: Medic al, 0.11 6001 00 AM PC) MG/ACTUAT EDT Metered Dose Inhaler [Flovent] FLOVENT HFA:806869 Diazepam 5 DIAZEP 03/20/ TABLET 10 complet DIAZE LAZARO [facility] (St MG Oral AM:197 2017 ed [facility] Tablet 591 12:00: Medical, DIAZEPAM:19 00 AM PC) 7591 EDT Diazepam 5 DIAZEP 03/20/ TABLET 10 complet DIAZE LAZARO [facility] (St MG Oral AM:197 2017 ed [facility] Tablet 591 12:00: Medical, DIAZEPAM:19 00 AM PC) 7591 EDT Diazepam 5 DIAZEP /20/ TABLET 10 complet DIAZE LAZARO [facility] (St MG Oral AM:197 2017 ed [place] Tablet 591 12:00: Medical, DIAZEPAM:19 00 AM PC) 7591 EDT Ondansetron ONDANS 11/25/ TABLET 40 complet ONDA NSETRON [facility] (St 4 MG Oral ETRON: 2016 ed [facility] Tablet [id number] 12:00: Medical, ONDANSETRON 00 AM PC) :[id number] EDT Ondansetron ONDANS 11/25/ TABLET 40 complet ONDA NSETRON [facility] (St 4 MG Oral ETRON: 2016 ed [facility] Tablet [id number] 12:00: Medical, ONDANSETRON 00 AM PC) :[id number] EDT Ondansetron ONDANS 11/25/ TABLET 40 complet ONDA NSETRON [facility] (St 4 MG Oral ETRON: 2016 ed [facility] Tablet [id number] 12:00: Medical, ONDANSETRON 00 AM PC) :[id number] EDT Albuterol ALBUTE 09/15/ SOLUTION 1 complet ALBU TEROL [facility] (St 0.83 MG/ML ROL:63 2016 ed [facility] Inhalant 020 12:00: Medical, Solution 00 AM PC) ALBUTEROL:6 EDT 76217 Albuterol ALBUTE 09/15/ SOLUTION 1 complet ALBU TEROL [facility] (St 0.83 MG/ML ROL:63 2016 ed [facility] Inhalant 0208 12:00: Medical, Solution 00 AM PC) ALBUTEROL:6 EDT 43391 200 ACTUAT PROAIR 09/15/ AEROSOL 1 complet PROA IR HFA [facility] (St Albuterol HFA:74 2016 ed [facility] 0.09 5679 12:00: Medical, MG/ACTUAT 00 AM PC) Metered EDT Dose Inhaler PROAIR HFA:002817 Omeprazole OMEPRA 09/15/ DELAYED 30 complet OMEP RAZOLE [facility] (St 20 MG ZOLE:1 2017 RELEASE ed Tatyana Delayed 06622 12:00: CAPSULE Medica l, Release 00 AM PC) Oral EDT Capsule OMEPRAZOLE: [id number] Omeprazole OMEPRA 09/15/ DELAYED 30 complet OMEP RAZOLE [facility] (St 20 MG ZOLE:1 2016 RELEASE ed Tatyana Delayed 32642 12:00: CAPSULE Medica l, Release 00 AM PC) Oral EDT Capsule OMEPRAZOLE: 19790701 200 ACTUAT PROAIR 09/15/ AEROSOL 1 complet PROA IR HFA [facility] (St Albuterol HFA:74 2016 ed Tatyana 0.09 5679 12:00: Medical, MG/ACTUAT 00 AM PC) Metered EDT Dose Inhaler PROAIR HFA:145562 Omeprazole OMEPRA 09/15/ DELAYED 30 complet OMEP RAZOLE [facility] (St 20 MG ZOLE:1 2016 RELEASE ed [place] Delayed 91827 12:00: CAPSULE Medica l, Release 00 AM PC) Oral EDT Capsule OMEPRAZOLE: [id number] Albuterol ALBUTE 09/15/ SOLUTION 1 complet ALBU TEROL [facility] (St 0.83 MG/ML ROL:63 2016 ed [facility] Inhalant 0208 12:00: Medical, Solution 00 AM PC) ALBUTEROL:6 EDT 59757 200 ACTUAT PROAIR 09/15/ AEROSOL 1 complet PROA IR HFA [facility] (St Albuterol HFA:74 2016 ed [place] 0.09 5679 12:00: Medical, MG/ACTUAT 00 AM PC) Metered EDT Dose Inhaler PROAIR HFA:980524 Fluconazole DIFLUC 01/25/ TABLET 1 complet DIFL UCAN [facility] (St 150 MG Oral AN:197 2016 ed [facility] Tablet 699 12:00: Medical, DIFLUCAN:19 00 AM PC) 7699 EST Fluconazole DIFLUC /25/ TABLET 1 complet DIFL UCAN [facility] (St 150 MG Oral AN:197 2016 ed [facility] Tablet 699 12:00: Medical, DIFLUCAN:19 00 AM PC) 7699 EST Fluconazole DIFLUC /25/ TABLET 1 complet DIFL UCAN [facility] (St 150 MG Oral AN:197 2016 ed [facility] Tablet 699 12:00: Medical, DIFLUCAN:19 00 AM PC) 7699 EST Levofloxaci LEVAQU 12/11/ TABLET 3 complet LEVA ADOLFO MED[facility] (St n 250 MG IN:199 2015 ed [facility] Oral Tablet 884 12:00: Medica l, LEVAQUIN:19 00 AM PC) 9884 EDT Levofloxaci LEVAQU 10/12/ TABLET 3 complet LEVA ADOLFO MED[facility] (St n 250 MG IN:199 2015 ed [facility] Oral Tablet 884 12:00: Medica l, LEVAQUIN:19 00 AM PC) 9884 EDT Levofloxaci LEVAQU 10/12/ TABLET 3 complet LEVA ADOLFO MED[facility] (St n 250 MG IN:199 2015 ed [facility] Oral Tablet 884 12:00: Medica l, LEVAQUIN:19 00 AM PC) 9884 EDT 200 ACTUAT albute AEROSOL 2 RESPIR complet [facility] Albuterol rol 90 {puff ATORY ed Health 0.09 mcg/in (s)} (INHAL System MG/ACTUAT h ATION) Metered inhala Dose tion Inhaler aeroso albuterol l 90 mcg/inh inhalation aerosol 200 ACTUAT Ventol AEROSOL 2 RESPIR complet [facility] Albuterol in HFA {puff ATORY ed Health 0.09 90 (s)} (INHAL System MG/ACTUAT mcg/in ATION) Metered h Dose inhala Inhaler tion Ventolin aeroso HFA 90 l mcg/inh inhalation aerosol Ibuprofen ibupro TABLET 1 ORAL complet [facility] 800 MG Oral fen {tab( ed Health Tablet 800 mg s)} System ibuprofen oral 800 mg oral tablet tablet Insurance Providers Payer name Policy type / Policy ID Covered Covered republican's Policy Plan Coverage type republican ID relationship to Joaquin Information joaquin [facility] ESSENTIAL [id number] SP [id number] PLAN 1 2 [facility] HEALTH [id number] 1 [id number] PLANS [facility] [place] [id number] [place] [id number] [facility]/Stem Commercial [id number] 1 [id number] Ess Plan 1&2 SELF PAY INSURANCE PENDING WC/NF [id number] SP [id number] 113 ONLY Dental [id number] S [id number] [employer] [facility] Superior [id number] S [id number] Vision [facility] [id number] S [id number] FFS Medicaid [facility] [id number] S [id number] Options [facility] Medicaid [id number] S [id number] Regular Clinic Visit (DO NOT USE) [id number] S [id number] [facility] Auth PCP Not MVNHC/YHC/GHC Problems, Conditions, and Diagnoses Code Display Name Description Problem Type Effective Data Sour ce(s) Dates K76.0 Fatty (change of) FATTY (CHANGE OF) Problem 10/26/2019 MEDGEN (St liver, not LIVER, NOT 12:00:00 AM [facility], elsewhere ELSEWHERE EDT PC) classified CLASSIFIED K21.9 Gastro-esophageal GASTRO-ESOPHAGEAL Problem 10/26/2019 MED[facility] (St reflux disease REFLUX DISEASE 12:00:00 AM [facility], without esophagitis WITHOUT EDT PC) ESOPHAGITIS 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 0 MED[facility] (St stomach STOMACH 12:00:00 AM [facility], EDT PC) N39.0 Urinary tract URINARY TRACT Problem 10/06/2019 MEDGEN ( St infection, site not INFECTION, SITE 12:00:00 AM [facility], specified NOT SPECIFIED EDT PC) N39.0 Urinary tract URINARY TRACT Problem 10/06/2019 MEDGEN ( St infection, site not INFECTION, SITE 12:00:00 AM [facility] Medical, specified NOT SPECIFIED EDT PC) M72.2 Plantar fascial PLANTAR FASCIAL Problem 09/19/2019 MEDG EN (St fibromatosis FIBROMATOSIS 12:00:00 AM [facility] Dc dical, EDT PC) M72.2 Plantar fascial PLANTAR FASCIAL Problem 09/19/2019 MEDG EN (St fibromatosis FIBROMATOSIS 12:00:00 AM [facility] Dc dical, EDT PC) M72.2 Plantar fascial PLANTAR FASCIAL Problem 09/19/2019 MEDG EN (St fibromatosis FIBROMATOSIS 12:00:00 AM [facility] Dc [facility]ical, EDT PC) M79.674 Pain in right PAIN IN RIGHT Problem 12/22/2018 MEDGEN ( St toe(s) TOE(S) 12:00:00 AM [facility], EDT PC) B35.1 Tinea unguium TINEA UNGUIUM Problem 12/22/2018 MEDGEN ( St 12:00:00 AM [facility], EDT PC) M79.674 Pain in right PAIN IN RIGHT Problem 12/22/2018 MEDGEN ( St toe(s) TOE(S) 12:00:00 AM [facility], EDT PC) B35.1 Tinea unguium TINEA UNGUIUM Problem 12/22/2018 MEDGEN ( St 12:00:00 AM [facility] lise, EDT PC) M79.674 Pain in right PAIN IN RIGHT Problem 12/22/2018 MEDGEN ( St toe(s) TOE(S) 12:00:00 AM [facility]ica lise EDT PC) B35.1 Tinea unguium TINEA UNGUIUM Problem 12/22/2018 MEDGEN ( St 12:00:00 AM [facility] lise, EDT PC) L03.039 Cellulitis of CELLULITIS OF Problem 11/29/2018 MEDGEN ( St unspecified toe UNSPECIFIED TOE 12:00:00 AM [facility] kaminski Wojciech, EDT PC) L03.011 Cellulitis of right CELLULITIS OF Problem 11/29/2018 ME DGEN (St finger RIGHT FINGER 12:00:00 AM [facility] Angelo thornton EDT PC) L03.039 Cellulitis of CELLULITIS OF Problem 11/29/2018 MEDGEN ( St unspecified toe UNSPECIFIED TOE 12:00:00 AM Watson kaminski Wojciech, EDT PC) L03.011 Cellulitis of right CELLULITIS OF Problem 11/29/2018 ME DGEN (St finger RIGHT FINGER 12:00:00 AM [facility] Angelo thornton EDT PC) L03.039 Cellulitis of CELLULITIS OF Problem 11/29/2018 MEDGEN ( St unspecified toe UNSPECIFIED TOE 12:00:00 AM Watson miller Wojciech EDT PC) L03.011 Cellulitis of right CELLULITIS OF Problem 11/29/2018 ME DGEN (St finger RIGHT FINGER 12:00:00 AM [facility] Angelo thornton EDT PC) M77.41 Metatarsalgia, METATARSALGIA, Problem 06/23/2018 MEDGEN (St right foot RIGHT FOOT 12:00:00 AM [facility] Medica lise, EDT PC) M77.41 Metatarsalgia, METATARSALGIA, Problem 06/23/2018 MEDGEN (St right foot RIGHT FOOT 12:00:00 AM [facility] Medica lise, EDT PC) M77.41 Metatarsalgia, METATARSALGIA, Problem 06/23/2018 MEDGEN (St right foot RIGHT FOOT 12:00:00 AM [facility], EDT PC) J06.9 Acute upper ACUTE UPPER Problem 06/16/2018 MEDGEN (St respiratory RESPIRATORY 12:00:00 AM [facility] Medi norberto, infection, INFECTION, EDT PC) unspecified UNSPECIFIED J06.9 Acute upper ACUTE UPPER Problem 06/16/2018 MEDGEN (St respiratory RESPIRATORY 12:00:00 AM [facility] Medi norberto, infection, INFECTION, EDT PC) unspecified UNSPECIFIED J06.9 Acute upper ACUTE UPPER Problem 06/16/2018 MEDGEN (St respiratory RESPIRATORY 12:00:00 AM [facility] Medi norberto, infection, INFECTION, EDT PC) unspecified UNSPECIFIED M77.42 Metatarsalgia, left METATARSALGIA, Problem 05/26/2018 M EDGEN (St foot LEFT FOOT 12:00:00 AM [facility], EDT PC) M77.42 Metatarsalgia, left METATARSALGIA, Problem 05/26/2018 M EDGEN (St foot LEFT FOOT 12:00:00 AM [facility], EDT PC) M77.42 Metatarsalgia, left METATARSALGIA, Problem 05/26/2018 M EDGEN (St foot LEFT FOOT 12:00:00 AM [facility], EDT PC) M79.675 Pain in left toe(s) PAIN IN LEFT Problem 05/19/2018 MED GEN (St TOE(S) 12:00:00 AM [facility], EDT PC) G57.60 Lesion of plantar LESION OF PLANTAR Problem 05/19/2018 MEDGEN (St nerve, unspecified NERVE, UNSPECIFIED 12:00:00 AM [facility], lower limb LOWER LIMB EDT PC) M79.675 Pain in left toe(s) PAIN IN LEFT Problem 05/19/2018 MED GEN (St TOE(S) 12:00:00 AM [facility], EDT PC) G57.60 Lesion of plantar LESION OF PLANTAR Problem 05/19/2018 MEDGEN (St nerve, unspecified NERVE, UNSPECIFIED 12:00:00 AM [facility], lower limb LOWER LIMB EDT PC) M79.675 Pain in left toe(s) PAIN IN LEFT Problem 05/19/2018 MED GEN (St TOE(S) 12:00:00 AM [facility], EDT PC) G57.60 Lesion of plantar LESION OF PLANTAR Problem 05/19/2018 MEDGEN (St nerve, unspecified NERVE, UNSPECIFIED 12:00:00 AM [facility], lower limb LOWER LIMB EDT PC) S93.429A Sprain of deltoid SPRAIN OF DELTOID Problem 05/17/2018 MEDGEN (St ligament of LIGAMENT OF 12:00:00 AM [facility] Medi norberto, unspecified ankle, UNSPECIFIED ANKLE, EDT PC) initial encounter INITIAL ENCOUNTER S93.409A Sprain of SPRAIN OF Problem 05/17/2018 MED[facility] (St unspecified UNSPECIFIED 12:00:00 AM [facility] Medi norberto, ligament of LIGAMENT OF EDT PC) unspecified ankle, UNSPECIFIED ANKLE, initial encounter INITIAL ENCOUNTER M79.672 Pain in left foot PAIN IN LEFT FOOT Problem 05/17/2018 MED[facility] (St 12:00:00 AM [facility], EDT PC) S93.429A Sprain of deltoid SPRAIN OF DELTOID Problem 05/17/2018 MEDGEN (St ligament of LIGAMENT OF 12:00:00 AM [facility] Medi norberto, unspecified ankle, UNSPECIFIED ANKLE, EDT PC) initial encounter INITIAL ENCOUNTER S93.409A Sprain of SPRAIN OF Problem 05/17/2018 MED[facility] (St unspecified UNSPECIFIED 12:00:00 AM [facility] Medi norberto, ligament of LIGAMENT OF EDT PC) unspecified ankle, UNSPECIFIED ANKLE, initial encounter INITIAL ENCOUNTER M79.672 Pain in left foot PAIN IN LEFT FOOT Problem 05/17/2018 MED[facility] (St 12:00:00 AM [facility] Medica [facility], EDT PC) S93.429A Sprain of deltoid SPRAIN OF DELTOID Problem 05/17/2018 MEDGEN (St ligament of LIGAMENT OF 12:00:00 AM [facility] Medi norberto, unspecified ankle, UNSPECIFIED ANKLE, EDT PC) initial encounter INITIAL ENCOUNTER S93.409A Sprain of SPRAIN OF Problem 05/17/2018 MED[facility] (St unspecified UNSPECIFIED 12:00:00 AM [facility] Medi norberto, ligament of LIGAMENT OF EDT PC) unspecified ankle, UNSPECIFIED ANKLE, initial encounter INITIAL ENCOUNTER M79.672 Pain in left foot PAIN IN LEFT FOOT Problem 05/17/2018 [facility] (St 12:00:00 AM [facility], EDT PC) J45.21 Mild intermittent MILD INTERMITTENT Problem 08/26/2017 MED[facility] (St asthma with (acute) ASTHMA WITH 12:00:00 AM [facility], exacerbation (ACUTE) EDT PC) EXACERBATION J45.21 Mild intermittent MILD INTERMITTENT Problem 08/26/2017 [facility] (St asthma with (acute) ASTHMA WITH 12:00:00 AM [facility], exacerbation (ACUTE) EDT PC) EXACERBATION J45.21 Mild intermittent MILD INTERMITTENT Problem 08/26/2017 [facility] (St asthma with (acute) ASTHMA WITH 12:00:00 AM [facility], exacerbation (ACUTE) EDT PC) EXACERBATION R53.83 Other fatigue OTHER FATIGUE Problem 07/09/2017 [facility] ( St 12:00:00 AM [facility], [facility]T PC) R53.83 Other fatigue OTHER FATIGUE Problem 07/09/2017 [facility] ( St 12:00:00 AM [facility], [facility]T PC) R53.83 Other fatigue OTHER FATIGUE Problem 07/09/2017 [facility] ( St 12:00:00 AM [facility], [facility]T PC) N83.202 Unspecified ovarian UNSPECIFIED Problem 12/11/2016 MEDG EN (St cyst, left side OVARIAN CYST, LEFT 12:00:00 AM [facility] EDT PC) E87.1 Hypo-osmolality and HYPO-OSMOLALITY Problem 12/11/2016 MEDGEN (St hyponatremia AND HYPONATREMIA 12:00:00 AM [facility], EDT PC) N83.202 Unspecified ovarian UNSPECIFIED Problem 12/11/2016 MEDG EN (St cyst, left side OVARIAN CYST, LEFT 12:00:00 AM [facility] EDT PC) E87.1 Hypo-osmolality and HYPO-OSMOLALITY Problem 12/11/2016 MEDGEN (St hyponatremia AND HYPONATREMIA 12:00:00 AM [facility], EDT PC) N83.202 Unspecified ovarian UNSPECIFIED Problem 12/11/2016 MEDG EN (St cyst, left side OVARIAN CYST, LEFT 12:00:00 AM [facility] EDT PC) E87.1 Hypo-osmolality and HYPO-OSMOLALITY Problem 12/11/2016 MEDGEN (St hyponatremia AND HYPONATREMIA 12:00:00 AM [facility], EDT PC) 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 09/15/2016 MEDG EN (St asthma, ASTHMA, 12:00:00 AM [facility], uncomplicated UNCOMPLICATED EDT PC) 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 09/15/2016 MEDG EN (St asthma, ASTHMA, 12:00:00 AM [facility], uncomplicated UNCOMPLICATED EDT PC) 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 09/15/2016 MEDG EN (St asthma, ASTHMA, 12:00:00 AM [facility], uncomplicated UNCOMPLICATED EDT PC) Z03.818 Encounter for ENCNTR FOR OBS FOR Diagnosis 07/06/2019 Simone [place] observation for SUSP EXPSR TO OTH 02:56:00 PM C [place] suspected exposure BIOLG AGENTS RULED EDT Care to other biological OUT Corpo ration agents ruled out [id number] Repair, primary, Repair, primary, Diagnosis 08/30/2018 MH S - New disrupted ligament, disrupted 07:39:00 AM Curtis sarmiento ankle; both ligament, ankle; EDT [facility]osp[facility] collateral both collateral ligaments ligaments M19.172 Post-traumatic Post-traumatic Diagnosis 08/30/2018 [facility] - New osteoarthritis, osteoarthritis of 07:39:00 AM Markie kingsley left ankle and foot left ankle or foot EDT [facility] M65.872 Other synovitis and Other synovitis or Diagnosis 08/31/19 19 [facility] - New tenosynovitis, left tenosynovitis of 07:39:00 A Ethan Hastings ankle and foot left ankle or foot [facility] M25.372 Other instability, Other instability Diagnosis 08/30/2018 [facility] - New left ankle of left ankle 07:39:00 AM [facility] M21.6X2 Other acquired Other acquired Diagnosis 08/30/2018 [facility] - New deformities of left deformities of 07:39:00 AM Hastings foot left foot [facility] M93.272 Osteochondritis Osteochondritis Diagnosis 08/30/2018 [facility] - New dissecans, left dissecans of joint 07:39:00 AM Hastings ankle and joints of of left ankle or EDT [facility] left foot foot Z53.33 Arthroscopic Arthroscopic Diagnosis 08/30/2018 [facility] - New surgical procedure surgical procedure 07:39:00 AM Yesi converted to open converted to open EDT Hospital procedure procedure S93.422A Sprain of deltoid Tear of deltoid Diagnosis 08/19/2018 MH S - New ligament of left ligament of left 09:13:00 AM R ochelle ankle, initial ankle, initial EDT Hospit al encounter encounter M25.572 Pain in left ankle Chronic pain of Diagnosis 08/19/2018 M HS - New and joints of left left ankle 09:13:00 AM Jv lle foot EDT Hospital V74.1 SCREENING TB SCREENING Diagnosis 05/04/2018 ORI (Mo unt EXAMINATION FOR 07:23:00 PM Trevor PULMONARY [facility] 799.9 OTHER UNKNOWN AND DENTAL DIAGNOSIS Diagnosis 05/04/2018 Cosmo MILENA ([place] UNSPECIFIED CAUSE 06:02:42 PM Trevor OF MORBIDITY OR [facility]) Surgeries/Procedures Procedure Description Date Indications Data Source(s) Documentation of current 10/26/2019 MED GEN ([facility] medications (procedure) 12:00:00 AM EDT Ethan aldana, PC) Documentation of current 10/26/2019 MED GEN ([facility] medications (procedure) 12:00:00 AM EDT katya, PC) Documentation of current 10/06/2019 MED GEN ([facility] medications (procedure) 12:00:00 AM EDT katya, PC) OFFICE OUTPATIENT VISIT 10 10/06/2019 Ethan WORKMAN ([facility] MINUTES 12:00:00 AM EDT Medical, PC) Documentation of current 10/06/2019 MED GEN ([facility] medications (procedure) 12:00:00 AM EDT katya, PC) OFFICE OUTPATIENT VISIT 10 10/06/2019 Ethan WORKMAN ([facility] MINUTES 12:00:00 AM EDT Medical, PC) OFFICE OUTPATIENT VISIT 10 09/19/2019 Ethan WORKMAN ([facility] MINUTES 12:00:00 AM EDT Medical, PC) OFFICE OUTPATIENT VISIT 10 09/19/2019 Ethan WORKMAN ([facility] MINUTES 12:00:00 AM EDT Medical, PC) OFFICE OUTPATIENT VISIT 10 09/19/2019 Ethan WORKMAN ([facility] MINUTES 12:00:00 AM EDT Medical, PC) OFFICE OUTPATIENT VISIT 10 12/22/2018 Ethan WORKMAN ([facility] MINUTES 12:00:00 AM EDT Medical, ) OFFICE OUTPATIENT VISIT 10 12/22/2018 Ethan JACINTA ([facility] MINUTES 12:00:00 AM EDT Medical, PC) OFFICE OUTPATIENT VISIT 10 12/22/2018 Ethan JACINTA ([facility] MINUTES 12:00:00 AM EDT Medical, PC) OFFICE OUTPATIENT VISIT 15 12/01/2018 Ethan JACINTA ([facility] MINUTES 12:00:00 AM EDT Medical, PC) OFFICE OUTPATIENT VISIT 15 12/01/2018 Ethan JACINTA ([facility] MINUTES 12:00:00 AM EDT Medical, PC) OFFICE OUTPATIENT VISIT 15 12/01/2018 Ethan JACINTA ([facility] MINUTES 12:00:00 AM EDT Medical, PC) OFFICE OUTPATIENT VISIT 15 11/29/2018 Ethan JACINTA ([facility] MINUTES 12:00:00 AM EDT Medical, PC) OFFICE OUTPATIENT VISIT 15 11/29/2018 Ethan JACINTA ([facility] MINUTES 12:00:00 AM EDT Medical, PC) OFFICE OUTPATIENT VISIT 15 11/29/2018 Ethan JACINTA ([facility] MINUTES 12:00:00 AM EDT Medical, PC) OFFICE OUTPATIENT VISIT 10 06/23/2018 Ethan JACINTA ([facility] MINUTES 12:00:00 AM EDT Medical, PC) OFFICE OUTPATIENT VISIT 10 06/23/2018 Ethan JACINTA ([facility] MINUTES 12:00:00 AM EDT Medical, PC) OFFICE OUTPATIENT VISIT 10 06/23/2018 Ethan JACINTA ([facility] MINUTES 12:00:00 AM EDT Medical, PC) Documentation of current 06/22/2018 MED GEN ([facility]'s medications (procedure) 12:00:00 AM EDT edical, PC) Documentation of current 06/22/2018 MED GEN ([facility] medications (procedure) 12:00:00 AM EDT edical, PC) Documentation of current 06/22/2018 MED GEN ([facility] medications (procedure) 12:00:00 AM EDT edical, PC) OFFICE OUTPATIENT VISIT 15 06/22/2018 Ethan JACINTA ([facility] MINUTES 12:00:00 AM EDT Medical, ) Documentation of current 06/22/2018 MED GEN ([facility]aren's medications (procedure) 12:00:00 AM EDT edical, PC) Documentation of current 06/22/2018 MED GEN ([facility]'s medications (procedure) 12:00:00 AM EDT lenardical, PC) Documentation of current 06/22/2018 MED GEN ([facility]'s medications (procedure) 12:00:00 AM EDT M edical, PC) OFFICE OUTPATIENT VISIT 15 06/22/2018 Ethan JACINTA ([facility] MINUTES 12:00:00 AM EDT Medical, PC) Documentation of current 06/22/2018 MED GEN ([facility]aren's medications (procedure) 12:00:00 AM EDT len[facility]ical, PC) Documentation of current 06/22/2018 MED GEN ([facility] medications (procedure) 12:00:00 AM EDT [facility], PC) Documentation of current 06/22/2018 MED GEN ([facility] medications (procedure) 12:00:00 AM EDT len[facility]ical, PC) OFFICE OUTPATIENT VISIT 15 06/22/2018 Ethan JACINTA ([facility] MINUTES 12:00:00 AM EDT Medical, PC) Documentation of current 06/16/2018 MED GEN ([facility] medications (procedure) 12:00:00 AM EDT lenardical, PC) Documentation of current 06/16/2018 MED GEN ([facility]'s medications (procedure) 12:00:00 AM EDT lenardical, PC) Documentation of current 06/16/2018 MED GEN ([facility] medications (procedure) 12:00:00 AM EDT lenardical, PC) Documentation of current 06/16/2018 MED GEN ([facility] medications (procedure) 12:00:00 AM EDT katya, PC) OFFICE OUTPATIENT VISIT 15 06/16/2018 Ethan JACINTA ([facility] MINUTES 12:00:00 AM EDT Medical, PC) Documentation of current 06/16/2018 MED GEN ([facility]aren's medications (procedure) 12:00:00 AM EDT M lenardical, PC) Documentation of current 06/16/2018 MED GEN ([facility]aren's medications (procedure) 12:00:00 AM EDT M lenardical, PC) Documentation of current 06/16/2018 MED GEN ([facility] medications (procedure) 12:00:00 AM EDT lenardical, PC) Documentation of current 06/16/2018 MED GEN ([facility] medications (procedure) 12:00:00 AM EDT edical, ) OFFICE OUTPATIENT VISIT 15 06/16/2018 Ethan WORKMAN ([facility] MINUTES 12:00:00 AM EDT Medical, PC) Documentation of current 06/16/2018 MED GEN ([facility] medications (procedure) 12:00:00 AM EDT edical, ) Documentation of current 06/16/2018 MED GEN ([facility] medications (procedure) 12:00:00 AM EDT edical, PC) Documentation of current 06/16/2018 MED GEN ([facility] medications (procedure) 12:00:00 AM EDT edical, ) Documentation of current 06/16/2018 MED GEN ([facility] medications (procedure) 12:00:00 AM EDT edical, ) OFFICE OUTPATIENT VISIT 15 06/16/2018 Ethan WORKMAN ([facility] MINUTES 12:00:00 AM EDT Medical, PC) OFFICE OUTPATIENT VISIT 10 06/07/2018 Ethan WORKMAN ([facility] MIN[facility]ES 12:00:00 AM EDT Medical, PC) ARTHROCENTESIS 06/07/2018 MEDGEN ([facility] ASPIR&/INJECTION SMALL 12:00:00 AM EDT Dc dical, PC) JT/BURSA OFFICE OUTPATIENT VISIT 10 06/07/2018 Ethan WORKMAN ([facility] MINUTES 12:00:00 AM EDT Medical, PC) ARTHROCENTESIS 06/07/2018 MEDGEN ([facility] ASPIR&/INJECTION SMALL 12:00:00 AM EDT Dc dical, PC) JT/BURSA OFFICE OUTPATIENT VISIT 10 06/07/2018 Ethan WORKMAN ([facility] MINUTES 12:00:00 AM EDT Medical, PC) ARTHROCENTESIS 06/07/2018 MEDGEN ([facility] ASPIR&/INJECTION SMALL 12:00:00 AM EDT Dc dical, PC) JT/BURSA Foot, insert, removable, 05/26/2018 MED GEN ([facility] molded to patient model, 12:00:00 AM EDT Medical, PC) 'ucb' type, mark shell, each OFFICE OUTPATIENT VISIT 10 05/26/2018 Ethan WORKMAN ([facility] MINUTES 12:00:00 AM EDT Medical, PC) Foot, insert, removable, 05/26/2018 MED GEN ([facility]'s molded to patient model, 12:00:00 AM EDT Medical, PC) 'ucb' type, mark shell, each OFFICE OUTPATIENT VISIT 10 05/26/2018 Ethan JACINTA ([facility] MIN[facility]ES 12:00:00 AM EDT Medical, PC) Foot, insert, removable, 05/26/2018 MED GEN ([facility] molded to patient model, 12:00:00 AM EDT Medical, PC) 'ucb' type, mark shell, each OFFICE OUTPATIENT VISIT 10 05/26/2018 Ethan JACINTA ([facility] MINUTES 12:00:00 AM EDT Medical, PC) OFFICE OUTPATIENT VISIT 10 05/19/2018 Ethan WORKMAN ([facility] MINUTES 12:00:00 AM EDT Medical, PC) ARTHROCENTESIS 05/19/2018 MEDGEN ([facility] ASPIR&/INJECTION SMALL 12:00:00 AM EDT Dc dical, PC) JT/BURSA OFFICE OUTPATIENT VISIT 10 05/19/2018 Ethan JACINTA ([facility] MINUTES 12:00:00 AM EDT Medical, PC) ARTHROCENTESIS 05/19/2018 MEDGEN ([facility] ASPIR&/INJECTION SMALL 12:00:00 AM EDT Dc dical, PC) JT/BURSA OFFICE OUTPATIENT VISIT 10 05/19/2018 Ethan WORKMAN ([facility] MINUTES 12:00:00 AM EDT Medical, PC) ARTHROCENTESIS 05/19/2018 MEDGEN ([facility] ASPIR&/INJECTION SMALL 12:00:00 AM EDT Dc dical, PC) JT/BURSA OFFICE OUTPATIENT NEW 05/17/2018 MED GEN ([facility] MINUTES 12:00:00 AM EDT Medical, PC) OFFICE OUTPATIENT NEW 05/17/2018 MED GEN ([facility] MINUTES 12:00:00 AM EDT Medical, PC) OFFICE OUTPATIENT NEW 05/17/2018 MED GEN ([facility] MINUTES 12:00:00 AM EDT Medical, PC) Documentation of current 08/26/2017 MED GEN ([facility]'s medications (procedure) 12:00:00 AM EDT [facility]) Documentation of current 08/26/2017 MED GEN ([facility]aren's medications (procedure) 12:00:00 AM EDT edical, ) Documentation of current 08/26/2017 MED GEN ([facility] medications (procedure) 12:00:00 AM EDT edical, ) OFFICE OUTPATIENT VISIT 15 08/26/2017 Ethan JACINTA ([facility] MINUTES 12:00:00 AM EDT Medical, ) Documentation of current 08/26/2017 MED GEN ([facility] medications (procedure) 12:00:00 AM EDT edical, ) Documentation of current 08/26/2017 MED GEN ([facility] medications (procedure) 12:00:00 AM EDT edical, ) Documentation of current 08/26/2017 MED GEN ([facility] medications (procedure) 12:00:00 AM EDT edical, ) OFFICE OUTPATIENT VISIT 15 08/26/2017 Ethan JACINTA ([facility] MINUTES 12:00:00 AM EDT Medical, ) Documentation of current 08/26/2017 MED GEN ([facility]aren's medications (procedure) 12:00:00 AM EDT edical, ) Documentation of current 08/26/2017 MED GEN ([facility] medications (procedure) 12:00:00 AM EDT edical, ) Documentation of current 08/26/2017 MED GEN ([facility] medications (procedure) 12:00:00 AM EDT edical, ) OFFICE OUTPATIENT VISIT 15 08/26/2017 Ethan JACINTA ([facility] MIN[facility]ES 12:00:00 AM EDT Medical, ) OFFICE OUTPATIENT VISIT 5 07/09/2017 ME DGEN ([facility] MINUTES 12:00:00 AM EDT Medical, PC) COLLECTION VENOUS BLOOD 07/09/2017 MEDG EN ([facility] VENIPUNCTURE 12:00:00 AM EDT Medical, ) OFFICE OUTPATIENT VISIT 5 07/09/2017 ME DGEN ([facility] MINUTES 12:00:00 AM EDT Medical, ) COLLECTION VENOUS BLOOD 07/09/2017 MEDG EN ([facility] VENIPUNCTURE 12:00:00 AM EDT Medical, ) OFFICE OUTPATIENT VISIT 5 07/09/2017 ME DGEN ([facility] MINUTES 12:00:00 AM EDT Medical, ) COLLECTION VENOUS BLOOD 07/09/2017 MEDG EN ([facility] VENIPUNCTURE 12:00:00 AM [facility], ) OFFICE OUTPATIENT VISIT 10 12/11/2016 Ethan JACINTA ([facility] MINUTES 12:00:00 AM [facility], ) COLLECTION VENOUS BLOOD 12/11/2016 MEDG EN ([facility] VENIPUNCTURE 12:00:00 AM [facility], ) OFFICE OUTPATIENT VISIT 10 12/11/2016 Ethan JACINTA ([facility] MINUTES 12:00:00 AM [facility], ) COLLECTION VENOUS BLOOD 12/11/2016 MEDG EN ([facility] VENIPUNCTURE 12:00:00 AM [facility], ) OFFICE OUTPATIENT VISIT 10 12/11/2016 Ethan JACINTA ([facility] MINUTES 12:00:00 AM [facility], ) COLLECTION VENOUS BLOOD 12/11/2016 MEDG EN ([facility] VENIPUNCTURE 12:00:00 AM [facility], ) Documentation of current 09/15/2016 MED GEN ([facility]aren's medications (procedure) 12:00:00 AM EDT [facility], ) Documentation of current 09/15/2016 MED GEN ([facility] medications (procedure) 12:00:00 AM EDT [facility], ) Documentation of current 09/15/2016 MED GEN ([facility]aren's medications (procedure) 12:00:00 AM EDT [facility], ) Documentation of current 09/15/2016 MED GEN ([facility]aren's medications (procedure) 12:00:00 AM EDT [facility], ) OFFICE OUTPATIENT VISIT 15 09/15/2016 Ethan JACINTA ([facility] MINUTES 12:00:00 AM [facility], ) Documentation of current 09/15/2016 MED GEN ([facility]aren's medications (procedure) 12:00:00 AM EDT [facility], ) Documentation of current 09/15/2016 MED GEN ([facility] medications (procedure) 12:00:00 AM EDT [facility], ) Documentation of current 09/15/2016 MED GEN ([facility]aren[facility] medications (procedure) 12:00:00 AM EDT [facility], ) Documentation of current 09/15/2016 MED GEN ([facility] medications (procedure) 12:00:00 AM EDT M edical, PC) OFFICE OUTPATIENT VISIT 15 09/15/2016 Ethan EDGEN ([facility] MINUTES 12:00:00 AM EDT Medical, PC) Documentation of current 09/15/2016 MED GEN ([facility] medications (procedure) 12:00:00 AM EDT edical, PC) Documentation of current 09/15/2016 MED GEN ([facility] medications (procedure) 12:00:00 AM EDT edical, PC) Documentation of current 09/15/2016 MED GEN ([facility] medications (procedure) 12:00:00 AM EDT edical, PC) Documentation of current 09/15/2016 MED GEN ([facility] medications (procedure) 12:00:00 AM EDT edical, PC) OFFICE OUTPATIENT VISIT 15 09/15/2016 Ethan WORKMAN ([facility] MINUTES 12:00:00 AM EDT Medical, PC) Results ID Date Data Source [id number] 11/14/2019 05:03:00 PM EDT [facility] Name Value Range Interpretation Description Data Sup porting Code Source(s) Document(s ) SARS [facility] coronavirus 2 RNA This lab was ordered by [facility] and reported by [facility]. ID Date Data Source [id number] 06/14/2019 12:00:00 AM EDT [facility] Name Value Range Interpretation Code Description Data Miroslava rce(s) Supporting Document(s ) 2019-nCoV [facility] RNA XXX VINH+probe- Imp This lab was ordered by [place] and reported by [facility]. ID Date Data Source [id number] 08/10/2018 12:00:00 AM EDT [facility] Name Value Range Interpretation Code Description Data Miroslava rce(s) Supporting Document(s ) Result 1 No growth Normal (applies to MEDGEN (St non-numeric [facility] results) Medical, PC) ID Date Data Source [id number] 08/10/2018 12:00:00 AM EDT [facility] ([facility]) Name Value Range Interpretation Description Data Sup porting Code Source(s) Document(s ) Urine Final Normal (applies to MEDGEN (St Culture, report non-numeric [facility] Routine results) Medical, PC) ID Date Data Source [id number] 08/10/2018 12:00:00 AM EDT [facility] ([facility]) Name Value Range Interpretation Code Description Data Miroslava rce(s) Supporting Document(s ) Result 1 No growth Normal (applies to MEDGEN (St non-numeric [facility] results) Medical, PC) ID Date Data Source [id number] 08/10/2018 12:00:00 AM EDT [facility] ([facility]) Name Value Range Interpretation Description Data Sup porting Code Source(s) Document(s ) Urine Final Normal (applies to MEDGEN (St Culture, report non-numeric [facility] Routine results) Medical, PC) ID Date Data Source [id number] 08/10/2018 12:00:00 AM EDT [facility] ([facility]) Name Value Range Interpretation Code Description Data Miroslava rce(s) Supporting Document(s ) Result 1 No growth Normal (applies to MEDGEN (St non-numeric [facility] results) Medical, PC) ID Date Data Source [id number] 08/10/2018 12:00:00 AM EDT [facility] ([facility]) Name Value Range Interpretation Description Data Sup porting Code Source(s) Document(s ) Urine Final Normal (applies to MEDGEN (St Culture, report non-numeric [facility] Routine results) Medical, PC) ID Date Data Source [id number] 11/25/2017 12:00:00 AM EDT [facility] ([facility]) Name Value Range Interpretation Code Description Data Miroslava rce(s) Supporting Document(s ) Result 1 Normal (applies to MEDGEN (St non-numeric results) [facility] d[facility], PC) ID Date Data Source [id number] 11/25/2017 12:00:00 AM EDT [facility] ([facility]) Name Value Range Interpretation Description Data Sup porting Code Source(s) Document(s ) Urine Final Normal (applies to MEDGEN (St Culture, report non-numeric [facility] Routine results) Medical, PC) ID Date Data Source [id number] 11/25/2017 12:00:00 AM EDT [facility] ([facility]) Name Value Range Interpretation Code Description Data Miroslava rce(s) Supporting Document(s ) Result 1 Normal (applies to MEDGEN (St non-numeric results) [facility] d[facility], PC) ID Date Data Source [id number] 11/25/2017 12:00:00 AM EDT [facility] ([facility]) Name Value Range Interpretation Description Data Sup porting Code Source(s) Document(s ) Urine Final Normal (applies to MEDGEN (St Culture, report non-numeric [facility] Routine results) Medical, PC) ID Date Data Source [id number] 11/25/2017 12:00:00 AM EDT [facility] ([facility]) Name Value Range Interpretation Code Description Data Miroslava rce(s) Supporting Document(s ) ID Date Data Source [id number] 11/25/2017 12:00:00 AM EDT [facility] ([facility]) Name Value Range Interpretation Description Data Sup porting Code Source(s) Document(s ) Urine Final Normal (applies to MEDGEN (St Culture, report non-numeric [facility] Routine results) Medical, PC) ID Date Data Source [id number] 11/04/2017 12:00:00 AM EDT [facility] ([facility]) Name Value Range Interpretation Description Data Sup porting Code Source(s) Document(s ) Result 1 Escherichia Abnormal MEDGEN (St coli (applies to [facility] non-numeric Medical, results) PC) Antimicrobial Normal (applies MEDGEN (St Susceptibility to non-numeric [facility] results) Medical, PC) ID Date Data Source [id number] 11/04/2017 12:00:00 AM EDT [facility] ([facility]) Name Value Range Interpretation Description Data Sup porting Code Source(s) Document(s ) Urine Final Abnormal (applies MEDGEN (St Culture, report to non-numeric [facility] Routine results) Medical, PC) ID Date Data Source [id number] 11/04/2017 12:00:00 AM EDT [facility] ([facility]) Name Value Range Interpretation Description Data Sup porting Code Source(s) Document(s ) Antimicrobial Normal (applies MEDGEN (St Susceptibility to non-numeric [facility] results) Medical, PC) Result 1 Escherichia Abnormal MEDGEN (St coli (applies to [facility] non-numeric Medical, results) PC) ID Date Data Source [id number] 11/04/2017 12:00:00 AM EDT [facility] ([facility]) Name Value Range Interpretation Description Data Sup porting Code Source(s) Document(s ) Urine Final Abnormal (applies MEDGEN (St Culture, report to non-numeric [facility] Routine results) Medical, PC) ID Date Data Source [id number] 11/04/2017 12:00:00 AM EDT [facility] ([facility]) Name Value Range Interpretation Description Data Sup porting Code Source(s) Document(s ) Result 1 Escherichia Abnormal (applies MEDGEN (St coli to non-numeric [facility] results) Medical, PC) ID Date Data Source [id number] 11/04/2017 12:00:00 AM EDT [facility] ([facility]) Name Value Range Interpretation Description Data Sup porting Code Source(s) Document(s ) Urine Final Abnormal (applies MEDGEN (St Culture, report to non-numeric [facility] Routine results) Medical, PC) ID Date Data Source [id number] 10/13/2017 12:00:00 AM EDT [facility] ([facility]) Name Value Range Interpretation Description Data Sup porting Code Source(s) Document(s ) Result 1 Escherichia Abnormal MEDGEN (St coli (applies to [facility] non-numeric Medical, results) PC) Antimicrobial Normal (applies MEDGEN (St Susceptibility to non-numeric [facility] results) Medical, PC) ID Date Data Source [id number] 10/13/2017 12:00:00 AM EDT [facility] ([facility]) Name Value Range Interpretation Description Data Sup porting Code Source(s) Document(s ) Urine Final Abnormal (applies MEDGEN (St Culture, report to non-numeric [facility] Routine results) Medical, PC) ID Date Data Source [id number] 10/13/2017 12:00:00 AM EDT [facility] ([facility]) Name Value Range Interpretation Description Data Sup porting Code Source(s) Document(s ) Result 1 Escherichia Abnormal MEDGEN (St coli (applies to [facility] non-numeric Medical, results) PC) Antimicrobial Normal (applies MEDGEN (St Susceptibility to non-numeric [facility] results) Medical, PC) ID Date Data Source [id number] 10/13/2017 12:00:00 AM EDT [facility] ([facility]) Name Value Range Interpretation Description Data Sup porting Code Source(s) Document(s ) Urine Final Abnormal (applies MEDGEN (St Culture, report to non-numeric [facility] Routine results) Medical, PC) ID Date Data Source [id number] 10/13/2017 12:00:00 AM EDT [facility] ([facility]) Name Value Range Interpretation Description Data Sup porting Code Source(s) Document(s ) Result 1 Escherichia Abnormal (applies MEDGEN (St coli to non-numeric [facility] results) Medical, PC) ID Date Data Source [id number] 10/13/2017 12:00:00 AM EDT [facility] ([facility]) Name Value Range Interpretation Description Data Sup porting Code Source(s) Document(s ) Urine Final Abnormal (applies MEDGEN (St Culture, report to non-numeric [facility] Routine results) Medical, PC) ID Date Data Source [id number] 08/26/2017 12:00:00 AM EDT [facility] ([facility]) Name Value Range Interpretation Description Data Sup porting Code Source(s) Document(s ) Antinuclear Negative Normal (applies MEDGEN (St Antibodies, IFA to non-numeric [facility] results) Medical, ) ID Date Data Source [id number] 08/26/2017 12:00:00 AM EDT [facility] ([facility]) Name Value Range Interpretation Description Data Sup porting Code Source(s) Document(s ) Sedimentation 37 mm/hr Above high normal MEDGEN ( St Rate-Westergren [facility], PC) ID Date Data Source [id number] 08/26/2017 12:00:00 AM EDT [facility] ([facility]) Name Value Range Interpretation Code Description Data Supporting Source(s) Document(s ) SHERICE Direct Positive Abnormal (applies MEDGEN (St to non-numeric [facility] results) Medical, PC) ID Date Data Source [id number] 08/26/2017 12:00:00 AM EDT [facility] ([facility]) Name Value Range Interpretation Code Description Data Miroslava rce(s) Supporting Document(s ) RA Latex <10.0 Normal (applies to MEDGEN (St Turbid. non-numeric results) [facility], ) ID Date Data Source [id number] 08/26/2017 12:00:00 AM EDT MEDGEN (St [facility] Name Value Range Interpretation Description Data Sup porting Code Source(s) Document(s ) Antinuclear Negative Normal (applies [facility] (St Antibodies, IFA to non-numeric [facility] results) [facility], ) ID Date Data Source [id number] 08/26/2017 12:00:00 AM EDT [facility] ([facility]) Name Value Range Interpretation Description Data Sup porting Code Source(s) Document(s ) Sedimentation 37 mm/hr Above high normal [facility] ( St [facility], ) ID Date Data Source [id number] 08/26/2017 12:00:00 AM EDT [facility] ([facility]) Name Value Range Interpretation Code Description Data Supporting Source(s) Document(s ) SHERICE Direct Positive Abnormal (applies [facility] (St to non-numeric [facility] results) Medical, ) ID Date Data Source [id number] 08/26/2017 12:00:00 AM EDT [facility] ([facility]) Name Value Range Interpretation Code Description Data Miroslava rce(s) Supporting Document(s ) RA Latex <10.0 Normal (applies to [facility] (St Turbid. non-numeric results) [facility], ) ID Date Data Source [id number] 08/26/2017 12:00:00 AM EDT [facility] ([facility]) Name Value Range Interpretation Description Data Sup porting Code Source(s) Document(s ) Antinuclear Negative Normal (applies [facility] (St Antibodies, IFA to non-numeric [facility] results) Medical, ) ID Date Data Source [id number] 08/26/2017 12:00:00 AM EDT [facility] ([facility]) Name Value Range Interpretation Description Data Sup porting Code Source(s) Document(s ) Sedimentation 37 mm/hr Above high normal [facility] ( [facility]) ID Date Data Source [id number] 08/26/2017 12:00:00 AM EDT [facility] ([facility]) Name Value Range Interpretation Code Description Data Supporting Source(s) Document(s ) SHERICE Direct Positive Abnormal (applies [facility] (St to non-numeric [facility] results) [facility], ) ID Date Data Source [id number] 08/26/2017 12:00:00 AM EDT [facility] ([facility], ) Name Value Range Interpretation Code Description Data Miroslava rce(s) Supporting Document(s ) RA Latex <10.0 Normal (applies to [facility] (St Turbid. non-numeric results) [facility], ) ID Date Data Source [id number] 08/25/2017 12:00:00 AM EDT [facility] ([facility], ) Name Value Range Interpretation Code Description Data Miroslava rce(s) Supporting Document(s ) Result 1 No growth Normal (applies to [facility] (St non-numeric [facility] results) [facility], ) ID Date Data Source [id number] 08/25/2017 12:00:00 AM EDT [facility] ([facility], ) Name Value Range Interpretation Description Data Sup porting Code Source(s) Document(s ) Urine Final Normal (applies to [facility] (St Culture, report non-numeric [facility] Routine results) Medical, ) ID Date Data Source [id number] 08/25/2017 12:00:00 AM EDT [facility] ([facility], ) Name Value Range Interpretation Description Data Sup porting Code Source(s) Document(s ) Chlamydia Negative Normal (applies [facility] (St trachomatis rRNA to non-numeric [facility] [Presence] in results) Medical, ) Unspecified specimen by Probe and target amplification method Neisseria Negative Normal (applies [facility] (St gonorrhoeae rRNA to non-numeric [facility] [Presence] in results) Medical, ) Unspecified specimen by Probe and target amplification method ID Date Data Source [id number] 08/25/2017 12:00:00 AM EDT [facility] ([facility] ) Name Value Range Interpretation Code Description Data Miroslava rce(s) Supporting Document(s ) Result 1 No growth Normal (applies to [facility] (St non-numeric [facility] results) [facility], ) ID Date Data Source [id number] 08/25/2017 12:00:00 AM EDT [facility] ([facility] ) Name Value Range Interpretation Description Data Sup porting Code Source(s) Document(s ) Urine Final Normal (applies to [facility] (St Culture, report non-numeric [facility] Routine results) [facility], ) ID Date Data Source [id number] 08/25/2017 12:00:00 AM EDT [facility] ([facility], ) Name Value Range Interpretation Description Data Sup porting Code Source(s) Document(s ) Chlamydia Negative Normal (applies [facility] (St trachomatis rRNA to non-numeric [facility] [Presence] in results) Medical, ) Unspecified specimen by Probe and target amplification method Neisseria Negative Normal (applies [facility] (St gonorrhoeae rRNA to non-numeric [facility] [Presence] in results) [facility], ) Unspecified specimen by Probe and target amplification method ID Date Data Source [id number] 08/25/2017 12:00:00 AM EDT [facility] ([facility], ) Name Value Range Interpretation Code Description Data Miroslava rce(s) Supporting Document(s ) Result 1 No growth Normal (applies to [facility] (St non-numeric [facility] results) [facility], ) ID Date Data Source [id number] 08/25/2017 12:00:00 AM EDT [facility] ([facility], ) Name Value Range Interpretation Description Data Sup porting Code Source(s) Document(s ) Urine Final Normal (applies to [facility] (St Culture, report non-numeric [facility] Routine results) [facility], ) ID Date Data Source [id number] 08/25/2017 12:00:00 AM EDT [facility] ([facility], ) Name Value Range Interpretation Description Data Sup porting Code Source(s) Document(s ) Chlamydia Negative Normal (applies [facility] (St trachomatis rRNA to non-numeric [facility] [Presence] in results) [facility], ) Unspecified specimen by Probe and target amplification method Neisseria Negative Normal (applies [facility] (St gonorrhoeae rRNA to non-numeric [facility] [Presence] in results) [facility], ) Unspecified specimen by Probe and target amplification method ID Date Data Source [id number] 07/09/2017 12:00:00 AM EDT [facility] ([facility], ) Name Value Range Interpretation Description Data Sup porting Code Source(s) Document(s ) Sedimentation 29 mm/hr Normal (applies [facility] (St Rate-Westergren to non-numeric [facility] results) [facility], ) ID Date Data Source [id number] 07/09/2017 12:00:00 AM EDT [facility] ([facility], ) Name Value Range Interpretation Description Data Sup porting Code Source(s) Document(s ) TSH 1.590 Normal (applies to [facility] (St uIU/mL non-numeric [facility] results) Medical, ) Thyroxine 5.2 ug/dL Normal (applies to [facility] (St (T4) non-numeric [facility] results) Medical, ) T3 Uptake 25 % Normal (applies to [facility] (St non-numeric [facility] results) Medical, ) Free 1.3 Normal (applies to [facility] (St Thyroxine non-numeric [facility] Index results) [facility], ) ID Date Data Source [id number] 07/09/2017 12:00:00 AM EDT [facility] ([facility], ) Name Value Range Interpretation Code Description Data Miroslava rce(s) Supporting Document(s ) IgG P93 Present Abnormal (applies [facility] (St Ab. to non-numeric [facility] results) Medical, ) IgG P66 Absent Normal (applies to [facility] (St Ab. non-numeric [facility] results) Medical, ) IgG P58 Absent Normal (applies to [facility] (St Ab. non-numeric [facility] results) Medical, ) IgG P41 Absent Normal (applies to [facility] (St Ab. non-numeric [facility] results) Medical, ) IgG P45 Absent Normal (applies to [facility] (St Ab. non-numeric [facility] results) Medical, ) IgG P30 Absent Normal (applies to [facility] (St Ab. non-numeric [facility] results) Medical, ) IgG P39 Absent Normal (applies to [facility] (St Ab. non-numeric [facility] results) Medical, ) IgG P23 Absent Normal (applies to [facility] (St Ab. non-numeric [facility] results) Medical, ) IgG P28 Absent Normal (applies to [facility] (St Ab. non-numeric [facility] results) Medical, ) IgG P18 Absent Normal (applies to [facility] (St Ab. non-numeric [facility] results) Medical, ) Lyme IgG Negative Normal (applies to [facility] (St WB non-numeric [facility] Interp. results) Medical, ) IgM P41 Absent Normal (applies to [facility] (St Ab. non-numeric [facility] results) Medical, ) IgM P39 Absent Normal (applies to [facility] (St Ab. non-numeric [facility] results) Medical, ) IgM P23 Present Abnormal (applies [facility] (St Ab. to non-numeric [facility] results) Medical, ) Lyme IgM Negative Normal (applies to [facility] (St WB non-numeric [facility] Interp. results) Medical, ) ID Date Data Source [id number] 07/09/2017 12:00:00 AM EDT [facility], ) Name Value Range Interpretation Description Data Sup porting Code Source(s) Document(s ) Written Normal (applies to [facility] (St Authorization non-numeric [facility] results) Medical, ) ID Date Data Source [id number] 07/09/2017 12:00:00 AM EDT [facility] ([facility]) Name Value Range Interpretation Description Data Sup porting Code Source(s) Document(s ) Vitamin D, 13.1 Below low normal [facility] (St 25-Hydroxy ng/mL [facility], ) ID Date Data Source [id number] 07/09/2017 12:00:00 AM EDT [facility], ) Name Value Range Interpretation Description Data Sup porting Code Source(s) Document(s ) Folate 6.1 ng/mL Normal (applies to [facility] (St (Folic non-numeric [facility] Acid), Serum results) Medical, ) Vitamin B12 644 pg/mL Normal (applies to [facility] (S t non-numeric [facility] results) Medical, ) ID Date Data Source [id number] 07/09/2017 12:00:00 AM EDT [facility]) Name Value Range Interpretation Description Data Sup porting Code Source(s) Document(s ) Iron 400 ug/dL Normal (applies to [facility] (St Bind.Cap.(TIBC non-numeric [facility] ) results) Medical, ) Iron 93 ug/dL Normal (applies to [facility] (St [Mass/volume] non-numeric [facility] in Serum or results) Medical, ) Plasma UIBC 307 ug/dL Normal (applies to [facility] (St non-numeric [facility] results) Medical, ) Iron 23 % Normal (applies to [facility] (St saturation non-numeric [facility] [Mass results) Medical, ) Fraction] in Serum or Plasma ID Date Data Source [id number] 07/09/2017 12:00:00 AM EDT [facility] ([facility], ) Name Value Range Interpretation Description Data Sup porting Code Source(s) Document(s ) Erythrocytes 4.42 Normal (applies [facility] (St [#/volume] in x10E6/uL to non-numeric [facility] Blood by results) Medical, ) Automated count Leukocytes 6.2 Normal (applies [facility] (St [#/volume] in x10E3/uL to non-numeric [facility] Blood by results) Medical, ) Automated count Hemoglobin 13.2 Normal (applies [facility] (St [Mass/volume] in g/dL to non-numeric [facility] Blood results) Medical, ) MCV 89 fL Normal (applies [facility] (St to non-numeric [facility] results) Medical, ) Hematocrit 39.3 % Normal (applies [facility] (St [Volume to non-numeric [facility] Fraction] of results) Medical, ) Blood by Automated count MCHC 33.6 Normal (applies [facility] (St g/dL to non-numeric [facility] results) Medical, ) MCH 29.9 pg Normal (applies [facility] (St to non-numeric [facility] results) Medical, ) RDW 14.0 % Normal (applies [facility] (St to non-numeric [facility] results) Medical, ) Platelets 276 Normal (applies [facility] (St [#/area] in x10E3/uL to non-numeric [facility] Blood by results) Medical, ) Microscopy high power field Neutrophils [#] 55 % Normal (applies [facility] ( St in Body fluid by to non-numeric [facility] Manual count results) Medical, ) Lymphs 36 % Normal (applies [facility] (St to non-numeric [facility] results) Medical, ) Monocytes 6 % Normal (applies [facility] (St [#/volume] in to non-numeric [facility] Cord blood results) Medical, ) Eos 2 % Normal (applies [facility] (St to non-numeric [facility] results) Medical, ) Basos 1 % Normal (applies [facility] (St to non-numeric [facility] results) Medical, ) Neutrophils 3.4 Normal (applies [facility] (St (Absolute) x10E3/uL to non-numeric [facility] results) Medical, ) Lymphs 2.2 Normal (applies [facility] (St (Absolute) x10E3/uL to non-numeric [facility] results) Medical, ) Monocytes(Absolu 0.4 Normal (applies [facility] (St te) x10E3/uL to non-numeric [facility] results) Medical, ) Baso (Absolute) 0.1 Normal (applies [facility] ( St x10E3/uL to non-numeric [facility] results) Medical, ) Eos (Absolute) 0.2 Normal (applies [facility] (S t x10E3/uL to non-numeric [facility] results) Medical, ) Immature 0 % Normal (applies [facility] (St Granulocytes to non-numeric [facility] results) Medical, ) Immature Grans 0.0 Normal (applies [facility] (S t (Abs) x10E3/uL to non-numeric [facility] results) [facility], ) ID Date Data Source [id number] 07/09/2017 12:00:00 AM EDT [facility] ([facility], ) Name Value Range Interpretation Description Data Sup porting Code Source(s) Document(s ) Sedimentation 29 mm/hr Normal (applies [facility] (St Rate-Westergren to non-numeric [facility] results) [facility], ) ID Date Data Source [id number] 07/09/2017 12:00:00 AM EDT [facility] ([facility], ) Name Value Range Interpretation Description Data Sup porting Code Source(s) Document(s ) TSH 1.590 Normal (applies to [facility] (St uIU/mL non-numeric [facility] results) Medical, ) T3 Uptake 25 % Normal (applies to [facility] (St non-numeric [facility] results) [facility], ) Thyroxine 5.2 ug/dL Normal (applies to [facility] (St (T4) non-numeric [facility] results) Medical, ) Free 1.3 Normal (applies to [facility] (St Thyroxine non-numeric [facility] Index results) [facility], ) ID Date Data Source [id number] 07/09/2017 12:00:00 AM EDT [facility] ([facility]) Name Value Range Interpretation Code Description Data Miroslava rce(s) Supporting Document(s ) IgG P93 Present Abnormal (applies [facility] (St Ab. to non-numeric [facility] results) [facility], [facility]) IgG P58 Absent Normal (applies to [facility] (St Ab. non-numeric [facility] results) [facility], [facility]) IgG P66 Absent Normal (applies to [facility] (St Ab. non-numeric [facility] results) [facility], [facility]) IgG P41 Absent Normal (applies to [facility] (St Ab. non-numeric [facility] results) [facility], [facility]) IgG P45 Absent Normal (applies to [facility] (St Ab. non-numeric [facility] results) [facility], [facility]) IgG P39 Absent Normal (applies to [facility] (St Ab. non-numeric [facility] results) [facility], [facility]) IgG P30 Absent Normal (applies to [facility] (St Ab. non-numeric [facility] results) [facility], [facility]) IgG P28 Absent Normal (applies to [facility] (St Ab. non-numeric [facility] results) [facility], [facility]) IgG P23 Absent Normal (applies to [facility] (St Ab. non-numeric [facility] results) [facility], [facility]) IgG P18 Absent Normal (applies to [facility] (St Ab. non-numeric [facility] results) [facility], [facility]) Lyme IgG Negative Normal (applies to [facility] (St WB non-numeric [facility] Interp. results) [facility], [facility]) IgM P39 Absent Normal (applies to [facility] (St Ab. non-numeric [facility] results) [facility], [facility]) IgM P41 Absent Normal (applies to [facility] (St Ab. non-numeric [facility] results) [facility], [facility]) Lyme IgM Negative Normal (applies to [facility] (St WB non-numeric [facility] Interp. results) [facility], [facility]) IgM P23 Present Abnormal (applies [facility] (St Ab. to non-numeric [facility] results) [facility], [facility]) ID Date Data Source [id number] 07/09/2017 12:00:00 AM EDT [facility] ([facility]) Name Value Range Interpretation Description Data Sup porting Code Source(s) Document(s ) Written Normal (applies to [facility] (St Authorization non-numeric [facility] results) Medical, ) ID Date Data Source [id number] 07/09/2017 12:00:00 AM EDT [facility] ([facility], ) Name Value Range Interpretation Description Data Sup porting Code Source(s) Document(s ) Vitamin D, 13.1 Below low normal [facility] (St 25-Hydroxy ng/mL [facility], ) ID Date Data Source [id number] 07/09/2017 12:00:00 AM EDT [facility] ([facility], ) Name Value Range Interpretation Description Data Sup porting Code Source(s) Document(s ) Vitamin B12 644 pg/mL Normal (applies to [facility] (S t non-numeric [facility] results) [facility], ) Folate 6.1 ng/mL Normal (applies to [facility] (St (Folic non-numeric [facility] Acid), Serum results) [facility]) ID Date Data Source [id number] 07/09/2017 12:00:00 AM EDT [facility], ) Name Value Range Interpretation Description Data Sup porting Code Source(s) Document(s ) UIBC 307 ug/dL Normal (applies to [facility] (St non-numeric [facility] results) [facility], ) Iron 400 ug/dL Normal (applies to [facility] (St Bind.Cap.(TIBC non-numeric [facility] ) results) [facility]) Iron 23 % Normal (applies to [facility] (St saturation non-numeric [facility] [Mass results) [facility], ) Fraction] in Serum or Plasma Iron 93 ug/dL Normal (applies to [facility] (St [Mass/volume] non-numeric [facility] in Serum or results) [facility], ) Plasma ID Date Data Source [id number] 07/09/2017 12:00:00 AM EDT [facility] ([facility], ) Name Value Range Interpretation Description Data Sup porting Code Source(s) Document(s ) Leukocytes 6.2 Normal (applies [facility] (St [#/volume] in x10E3/uL to non-numeric [facility] Blood by results) [facility]) Automated count Erythrocytes 4.42 Normal (applies [facility] (St [#/volume] in x10E6/uL to non-numeric [facility] Blood by results) [facility], ) Automated count Hemoglobin 13.2 Normal (applies [facility] (St [Mass/volume] in g/dL to non-numeric [facility] Blood results) [facility], ) Hematocrit 39.3 % Normal (applies [facility] (St [Volume to non-numeric [facility] Fraction] of results) [facility], ) Blood by Automated count MCV 89 fL Normal (applies [facility] (St to non-numeric [facility] results) [facility], ) MCHC 33.6 Normal (applies [facility] (St g/dL to non-numeric [facility] results) [facility], ) MCH 29.9 pg Normal (applies [facility] (St to non-numeric [facility] results) [facility], ) Platelets 276 Normal (applies [facility] (St [#/area] in x10E3/uL to non-numeric [facility] Blood by results) [facility], ) Microscopy high power field RDW 14.0 % Normal (applies [facility] (St to non-numeric [facility] results) [facility], ) Neutrophils [#] 55 % Normal (applies [facility] ( St in Body fluid by to non-numeric [facility] Manual count results) [facility], ) Lymphs 36 % Normal (applies [facility] (St to non-numeric [facility] results) [facility], ) Monocytes 6 % Normal (applies [facility] (St [#/volume] in to non-numeric [facility] Cord blood results) [facility], ) Eos 2 % Normal (applies [facility] (St to non-numeric [facility] results) [facility], ) Neutrophils 3.4 Normal (applies [facility] (St (Absolute) x10E3/uL to non-numeric [facility] results) [facility], ) Basos 1 % Normal (applies [facility] (St to non-numeric [facility] results) [facility], ) Monocytes(Absolu 0.4 Normal (applies [facility] (St te) x10E3/uL to non-numeric [facility] results) [facility], ) Lymphs 2.2 Normal (applies [facility] (St (Absolute) x10E3/uL to non-numeric [facility] results) [facility], ) Baso (Absolute) 0.1 Normal (applies [facility] ( St x10E3/uL to non-numeric [facility] results) [facility], ) Eos (Absolute) 0.2 Normal (applies [facility] (S t x10E3/uL to non-numeric [facility] results) [facility], ) Immature Grans 0.0 Normal (applies [facility] (S t (Abs) x10E3/uL to non-numeric [facility] results) [facility], ) Immature 0 % Normal (applies [facility] (St Granulocytes to non-numeric [facility] results) [facility], ) ID Date Data Source [id number] 07/09/2017 12:00:00 AM EDT [facility] ([facility], ) Name Value Range Interpretation Description Data Sup porting Code Source(s) Document(s ) Sedimentation 29 mm/hr Normal (applies [facility] (St Rate-Westergren to non-numeric [facility] results) [facility], ) ID Date Data Source [id number] 07/09/2017 12:00:00 AM EDT [facility] ([facility], ) Name Value Range Interpretation Description Data Sup porting Code Source(s) Document(s ) TSH 1.590 Normal (applies to [facility] (St uIU/mL non-numeric [facility] results) [facility], ) Thyroxine 5.2 ug/dL Normal (applies to [facility] (St (T4) non-numeric [facility] results) [facility], ) T3 Uptake 25 % Normal (applies to [facility] (St non-numeric [facility] results) [facility], ) Free 1.3 Normal (applies to [facility] (St Thyroxine non-numeric [facility] Index results) [facility], ) ID Date Data Source [id number] 07/09/2017 12:00:00 AM EDT [facility] ([facility], ) Name Value Range Interpretation Code Description Data Miroslava rce(s) Supporting Document(s ) IgG P93 Present Abnormal (applies [facility] (St Ab. to non-numeric [facility] results) Medical, ) IgG P66 Absent Normal (applies to [facility] (St Ab. non-numeric [facility] results) Medical, ) IgG P45 Absent Normal (applies to [facility] (St Ab. non-numeric [facility] results) Medical, ) IgG P58 Absent Normal (applies to [facility] (St Ab. non-numeric [facility] results) Medical, ) IgG P30 Absent Normal (applies to [facility] (St Ab. non-numeric [facility] results) Medical, ) IgG P41 Absent Normal (applies to [facility] (St Ab. non-numeric [facility] results) Medical, ) IgG P39 Absent Normal (applies to [facility] (St Ab. non-numeric [facility] results) [facility], [facility]) IgG P28 Absent Normal (applies to [facility] (St Ab. non-numeric [facility] results) [facility], [facility]) IgG P23 Absent Normal (applies to [facility] (St Ab. non-numeric [facility] results) Medical, ) IgG P18 Absent Normal (applies to [facility] (St Ab. non-numeric [facility] results) [facility], [facility]) Lyme IgG Negative Normal (applies to [facility] (St WB non-numeric [facility] Interp. results) Medical, ) IgM P23 Present Abnormal (applies [facility] (St Ab. to non-numeric [facility] results) Medical, ) IgM P41 Absent Normal (applies to [facility] (St Ab. non-numeric [facility] results) [facility], [facility]) IgM P39 Absent Normal (applies to [facility] (St Ab. non-numeric [facility] results) Medical, ) Lyme IgM Negative Normal (applies to [facility] (St WB non-numeric [facility] Interp. results) Medical, ) ID Date Data Source [id number] 07/09/2017 12:00:00 AM EDT [facility] ([facility], ) Name Value Range Interpretation Code Description Data Miroslava rce(s) Supporting Document(s ) ID Date Data Source [id number] 07/09/2017 12:00:00 AM EDT [facility] ([facility], ) Name Value Range Interpretation Description Data Sup porting Code Source(s) Document(s ) Vitamin D, 13.1 Below low normal [facility] (St 25-Hydroxy ng/mL [facility], ) ID Date Data Source [id number] 07/09/2017 12:00:00 AM EDT [facility] ([facility], ) Name Value Range Interpretation Description Data Sup porting Code Source(s) Document(s ) Vitamin B12 644 pg/mL Normal (applies to [facility] (S t non-numeric [facility] results) Medical, ) Folate 6.1 ng/mL Normal (applies to [facility] (St (Folic non-numeric [facility] Acid), Serum results) Medical, ) ID Date Data Source [id number] 07/09/2017 12:00:00 AM EDT [facility] ([facility], ) Name Value Range Interpretation Description Data Sup porting Code Source(s) Document(s ) UIBC 307 ug/dL Normal (applies to [facility] (St non-numeric [facility] results) [facility], ) Iron 400 ug/dL Normal (applies to [facility] (St Bind.Cap.(TIBC non-numeric [facility] ) results) [facility], ) Iron 93 ug/dL Normal (applies to [facility] (St [Mass/volume] non-numeric [facility] in Serum or results) [facility], ) Plasma Iron 23 % Normal (applies to [facility] (St saturation non-numeric [facility] [Mass results) [facility], ) Fraction] in Serum or Plasma ID Date Data Source [id number] 07/09/2017 12:00:00 AM EDT [facility] ([facility], ) Name Value Range Interpretation Description Data Sup porting Code Source(s) Document(s ) Leukocytes 6.2 Normal (applies [facility] (St [#/volume] in x10E3/uL to non-numeric [facility] Blood by results) Medical, ) Automated count Erythrocytes 4.42 Normal (applies [facility] (St [#/volume] in x10E6/uL to non-numeric [facility] Blood by results) [facility], ) Automated count Hematocrit 39.3 % Normal (applies [facility] (St [Volume to non-numeric Ziggy's Fraction] of results) [facility], ) Blood by Automated count Hemoglobin 13.2 Normal (applies [facility] (St [Mass/volume] in g/dL to non-numeric [facility]ig[facility]'s Blood results) [facility], ) MCH 29.9 pg Normal (applies [facility] (St to non-numeric Ziggy's results) [facility], ) MCV 89 fL Normal (applies [facility] (St to non-numeric Ziggy's results) [facility], ) Platelets 276 Normal (applies [facility] (St [#/area] in x10E3/uL to non-numeric Izggy's Blood by results) [facility], ) Microscopy high power field RDW 14.0 % Normal (applies [facility] (St to non-numeric Ziggy's results) [facility], ) MCHC 33.6 Normal (applies [facility] (St g/dL to non-numeric Ziggy's results) [facility], ) Lymphs 36 % Normal (applies [facility] (St to non-numeric Ziggy's results) Medical, ) Neutrophils [#] 55 % Normal (applies [facility] ( St in Body fluid by to non-numeric Z[facility]'s Manual count results) Medical, ) Monocytes 6 % Normal (applies [facility] (St [#/volume] in to non-numeric Ziggy's Cord blood results) Medical, ) Eos 2 % Normal (applies [facility] (St to non-numeric Ziggy's results) Medical, ) Basos 1 % Normal (applies [facility] (St to non-numeric Ziggy's results) Medical, ) Lymphs 2.2 Normal (applies [facility] (St (Absolute) x10E3/uL to non-numeric Ziggy's results) Medical, ) Neutrophils 3.4 Normal (applies [facility] (St (Absolute) x10E3/uL to non-numeric Ziggy's results) Medical, ) Monocytes(Absolu 0.4 Normal (applies [facility] (St te) x10E3/uL to non-numeric Ziggy's results) Medical, ) Eos (Absolute) 0.2 Normal (applies [facility] (S t x10E3/uL to non-numeric Ziggy's results) Medical, ) Immature 0 % Normal (applies [facility] (St Granulocytes to non-numeric Ziggy's results) Medical, ) Baso (Absolute) 0.1 Normal (applies [facility] ( St x10E3/uL to non-numeric Ziggy's results) Medical, ) Immature Grans 0.0 Normal (applies [facility] (S t (Abs) x10E3/uL to non-numeric Ziggy's results) Medical, ) ID Date Data Source [id number] 05/06/2017 12:00:00 AM EST [facility], ) Name Value Range Interpretation Description Data Sup porting Code Source(s) Document(s ) Antimicrobial Normal (applies [facility] (St Susceptibility to non-numeric Ziggy's results) Medical, ) Result 1 Escherichia Abnormal [facility] (St coli (applies to [facility]iggy's non-numeric Medical, rust) ) ID Date Data Source [id number] 05/06/2017 12:00:00 AM EST [facility] ([facility], ) Name Value Range Interpretation Description Data Sup porting Code Source(s) Document(s ) Urine Final Abnormal (applies [facility] (St Culture, report to non-numeric [facility]gy's Routine results) Medical, ) ID Date Data Source [id number] 05/06/2017 12:00:00 AM EST [facility] Name Value Range Interpretation Description Data Sup porting Code Source(s) Document(s ) Result 1 Escherichia Abnormal [facility] (St coli (applies to [facility]gy's non-numeric Medical, results) PC) Antimicrobial Normal (applies [facility] (St Susceptibility to non-numeric Ziggy's results) Medical, ) ID Date Data Source [id number] 05/06/2017 12:00:00 AM EST [facility] Name Value Range Interpretation Description Data Sup porting Code Source(s) Document(s ) Urine Final Abnormal (applies [facility] (St Culture, report to non-numeric Ziggy's Routine results) Medical, ) ID Date Data Source [id number] 05/06/2017 12:00:00 AM EST [facility] Name Value Range Interpretation Description Data Sup porting Code Source(s) Document(s ) Result 1 Escherichia Abnormal (applies [facility] (St coli to non-numeric Ziggy's results) Medical, ) ID Date Data Source [id number] 05/06/2017 12:00:00 AM EST [facility] Name Value Range Interpretation Description Data Sup porting Code Source(s) Document(s ) Urine Final Abnormal (applies [facility] (St Culture, report to non-numeric [facility]'s Routine results) Medical, ) ID Date Data Source [id number] 04/10/2017 12:00:00 AM EST [facility] Name Value Range Interpretation Code Description Data Miroslava rce(s) Supporting Document(s ) TSH 1.500 Normal (applies to [facility] (St uIU/mL non-numeric results) [facility], ) ID Date Data Source [id number] 04/10/2017 12:00:00 AM EST [facility] Name Value Range Interpretation Description Data Sup porting Code Source(s) Document(s ) Hemoglobin 5.4 % Normal (applies to [facility] (St A1c/Hemoglobin. non-numeric Ziggy's total in Blood results) Medical, ) ID Date Data Source [id number] 04/10/2017 12:00:00 AM EST [facility] ([facility], ) Name Value Range Interpretation Description Data Sup porting Code Source(s) Document(s ) Glucose, Serum 105 Above high [facility] (St mg/dL normal [facility], ) Creatinine, Serum 0.64 Normal (applies [facility] (St mg/dL to non-numeric Ziggy's results) Medical, ) Urea nitrogen 13 mg/dL Normal (applies [facility] (St [Mass/volume] in to non-numeric Ziggy's Serum or Plasma results) Medical, ) eGFR If NonAfricn 111 Normal (applies [facility] (St Am mL/min/1 to non-numeric Ziggy's .73 results) Medical, ) BUN/Creatinine 20 Normal (applies [facility] (S t Ratio to non-numeric Ziggy's results) Medical, ) eGFR If Africn Am 128 Normal (applies [facility] (St mL/min/1 to non-numeric Ziggy's .73 results) Medical, ) Sodium 138 Normal (applies [facility] (St [Moles/volume] in mmol/L to non-numeric Ziggy's Serum or Plasma results) Medical, ) Potassium, Serum 3.8 Normal (applies [facility] (St mmol/L to non-numeric Ziggy's results) Medical, ) Carbon dioxide, 23 Normal (applies [facility] ( St total mmol/L to non-numeric Ziggy's [Moles/volume] in results) Medical, Serum or Plasma PC) Chloride 98 Normal (applies [facility] (St [Moles/volume] in mmol/L to non-numeric Ziggy's Serum or Plasma results) Medical, ) Protein 7.5 g/dL Normal (applies [facility] (St [Mass/volume] in to non-numeric Ziggy's Serum or Plasma results) Medical, ) Calcium, Serum 8.7 Normal (applies [facility] (S t mg/dL to non-numeric Ziggy's results) Medical, ) Albumin, Serum 4.4 g/dL Normal (applies [facility] (S t to non-numeric Ziggy's results) Medical, ) Globulin, Total 3.1 g/dL Normal (applies [facility] ( St to non-numeric Ziggy's results) Medical, ) Bilirubin.total 0.2 Normal (applies [facility] ( St [Mass/volume] in mg/dL to non-numeric Ziggy's Serum or Plasma results) [facility], ) A/G Ratio 1.4 Normal (applies [facility] (St to non-numeric Ziggy's results) [facility], ) Alkaline 78 IU/L Normal (applies [facility] (St Phosphatase, S to non-numeric Ziggy's results) [facility], ) Aspartate 23 IU/L Normal (applies [facility] (St aminotransferase to non-numeric Ziggy's [Enzymatic results) Medical, activity/volume] in ) Serum or Plasma Alanine 19 IU/L Normal (applies [facility] (St aminotransferase to non-numeric Ziggy's [Enzymatic results) Medical, activity/volume] in ) Serum or Plasma ID Date Data Source [id number] 04/10/2017 12:00:00 AM EST [facility] ([facility], ) Name Value Range Interpretation Description Data Sup porting Code Source(s) Document(s ) Leukocytes 7.3 Normal (applies [facility] (St [#/volume] in x10E3/uL to non-numeric Zig[facility]'s Blood by results) Medical, ) Automated count Erythrocytes 4.47 Normal (applies [facility] (St [#/volume] in x10E6/uL to non-numeric Ziggy's Blood by results) [facility], ) Automated count Hematocrit 38.4 % Normal (applies [facility] (St [Volume to non-numeric Ziggy's Fraction] of results) [facility], ) Blood by Automated count Hemoglobin 13.4 Normal (applies [facility] (St [Mass/volume] in g/dL to non-numeric Ziggy's Blood results) [facility], ) MCV 86 fL Normal (applies [facility] (St to non-numeric Ziggy's results) [facility], ) MCH 30.0 pg Normal (applies [facility] (St to non-numeric Ziggy's results) [facility], ) MCHC 34.9 Normal (applies [facility] (St g/dL to non-numeric Ziggy's results) [facility], ) RDW 13.3 % Normal (applies [facility] (St to non-numeric Ziggy's results) [facility], ) Platelets 267 Normal (applies [facility] (St [#/area] in x10E3/uL to non-numeric Ziggy's Blood by results) [facility], ) Microscopy high power field Neutrophils [#] 57 % Normal (applies [facility] ( St in Body fluid by to non-numeric Ziggy's Manual count results) [facility], ) Lymphs 33 % Normal (applies [facility] (St to non-numeric Ziggy's results) [facility], ) Monocytes 7 % Normal (applies [facility] (St [#/volume] in to non-numeric Ziggy's Cord blood results) [facility], ) Basos 1 % Normal (applies [facility] (St to non-numeric Ziggy's results) [facility], ) Eos 2 % Normal (applies [facility] (St to non-numeric Ziggy's results) [facility], ) Neutrophils 4.1 Normal (applies [facility] (St (Absolute) x10E3/uL to non-numeric Ziggy's results) [facility], ) Lymphs 2.4 Normal (applies [facility] (St (Absolute) x10E3/uL to non-numeric Ziggy's results) [facility], ) Eos (Absolute) 0.2 Normal (applies [facility] (S t x10E3/uL to non-numeric Ziggy's results) [facility], ) Monocytes(Absolu 0.5 Normal (applies [facility] (St te) x10E3/uL to non-numeric Ziggy's results) [facility], ) Baso (Absolute) 0.1 Normal (applies [facility] ( St x10E3/uL to non-numeric Ziggy's results) [facility], ) Immature 0 % Normal (applies [facility] (St Granulocytes to non-numeric Ziggy's results) [facility], ) Immature Grans 0.0 Normal (applies [facility] (S t (Abs) x10E3/uL to non-numeric Ziggy's results) [facility], ) ID Date Data Source [id number] 04/10/2017 12:00:00 AM EST [facility] ([facility], ) Name Value Range Interpretation Code Description Data Miroslava rce(s) Supporting Document(s ) TSH 1.500 Normal (applies to [facility] (St uIU/mL non-numeric results) [facility] ID Date Data Source [id number] 04/10/2017 12:00:00 AM EST [facility] ([facility], ) Name Value Range Interpretation Description Data Sup porting Code Source(s) Document(s ) Hemoglobin 5.4 % Normal (applies to [facility] (St A1c/Hemoglobin. non-numeric Ziggy's total in Blood results) Medical, ) ID Date Data Source [id number] 04/10/2017 12:00:00 AM EST [facility] ([facility], ) Name Value Range Interpretation Description Data Sup porting Code Source(s) Document(s ) Urea nitrogen 13 mg/dL Normal (applies [facility] (St [Mass/volume] in to non-numeric Ziggy's Serum or Plasma results) Medical, ) Glucose, Serum 105 Above high [facility] (St mg/dL normal Z[facility]gy's [facility], ) eGFR If NonAfricn 111 Normal (applies [facility] (St Am mL/min/1 to non-numeric Ziggy's .73 results) Medical, ) Creatinine, Serum 0.64 Normal (applies [facility] (St mg/dL to non-numeric Ziggy's results) Medical, ) BUN/Creatinine 20 Normal (applies [facility] (S t Ratio to non-numeric Ziggy's results) Medical, ) eGFR If Africn Am 128 Normal (applies [facility] (St mL/min/1 to non-numeric Ziggy's .73 results) Medical, ) Sodium 138 Normal (applies [facility] (St [Moles/volume] in mmol/L to non-numeric Ziggy's Serum or Plasma results) Medical, ) Potassium, Serum 3.8 Normal (applies [facility] (St mmol/L to non-numeric Ziggy's results) Medical, ) Chloride 98 Normal (applies [facility] (St [Moles/volume] in mmol/L to non-numeric Ziggy's Serum or Plasma results) Medical, ) Carbon dioxide, 23 Normal (applies [facility] ( St total mmol/L to non-numeric Ziggy's [Moles/volume] in results) Medical, Serum or Plasma PC) Calcium, Serum 8.7 Normal (applies [facility] (S t mg/dL to non-numeric Ziggy's results) Medical, ) Protein 7.5 g/dL Normal (applies [facility] (St [Mass/volume] in to non-numeric Ziggy's Serum or Plasma results) Medical, ) Globulin, Total 3.1 g/dL Normal (applies [facility] ( St to non-numeric Ziggy's results) Medical, ) Albumin, Serum 4.4 g/dL Normal (applies [facility] (S t to non-numeric Ziggy's results) Medical, ) Bilirubin.total 0.2 Normal (applies [facility] ( St [Mass/volume] in mg/dL to non-numeric Ziggy's Serum or Plasma results) [facility], ) A/G Ratio 1.4 Normal (applies [facility] (St to non-numeric Ziggy's results) [facility], ) Alkaline 78 IU/L Normal (applies [facility] (St Phosphatase, S to non-numeric Ziggy's results) [facility], ) Aspartate 23 IU/L Normal (applies [facility] (St aminotransferase to non-numeric Ziggy's [Enzymatic results) Medical, activity/volume] in ) Serum or Plasma Alanine 19 IU/L Normal (applies [facility] (St aminotransferase to non-numeric Ziggy's [Enzymatic results) Medical, activity/volume] in ) Serum or Plasma ID Date Data Source [id number] 04/10/2017 12:00:00 AM EST [facility] ([facility], ) Name Value Range Interpretation Description Data Sup porting Code Source(s) Document(s ) Leukocytes 7.3 Normal (applies [facility] (St [#/volume] in x10E3/uL to non-numeric Ziggy's Blood by results) [facility], ) Automated count Erythrocytes 4.47 Normal (applies [facility] (St [#/volume] in x10E6/uL to non-numeric Ziggy's Blood by results) [facility], ) Automated count Hemoglobin 13.4 Normal (applies [facility] (St [Mass/volume] in g/dL to non-numeric Ziggy's Blood results) [facility], ) MCV 86 fL Normal (applies [facility] (St to non-numeric Ziggy's results) [facility], ) Hematocrit 38.4 % Normal (applies [facility] (St [Volume to non-numeric Ziggy's Fraction] of results) [facility], ) Blood by Automated count MCHC 34.9 Normal (applies [facility] (St g/dL to non-numeric Ziggy's results) [facility], ) MCH 30.0 pg Normal (applies [facility] (St to non-numeric Ziggy's results) [facility], ) Platelets 267 Normal (applies [facility] (St [#/area] in x10E3/uL to non-numeric Ziggy's Blood by results) [facility], ) Microscopy high power field RDW 13.3 % Normal (applies [facility] (St to non-numeric Ziggy's results) [facility], ) Neutrophils [#] 57 % Normal (applies [facility] ( St in Body fluid by to non-numeric Ziggy's Manual count results) [facility], ) Lymphs 33 % Normal (applies [facility] (St to non-numeric Ziggy's results) [facility], ) Monocytes 7 % Normal (applies [facility] (St [#/volume] in to non-numeric Ziggy's Cord blood results) [facility], ) Eos 2 % Normal (applies [facility] (St to non-numeric Ziggy's results) [facility], ) Basos 1 % Normal (applies [facility] (St to non-numeric Ziggy's results) [facility], ) Neutrophils 4.1 Normal (applies [facility] (St (Absolute) x10E3/uL to non-numeric Ziggy's results) [facility], ) Lymphs 2.4 Normal (applies [facility] (St (Absolute) x10E3/uL to non-numeric Ziggy's results) [facility], ) Monocytes(Absolu 0.5 Normal (applies [facility] (St te) x10E3/uL to non-numeric Ziggy's results) [facility], ) Eos (Absolute) 0.2 Normal (applies [facility] (S t x10E3/uL to non-numeric Ziggy's results) [facility], ) Baso (Absolute) 0.1 Normal (applies [facility] ( St x10E3/uL to non-numeric Ziggy's results) [facility], ) Immature 0 % Normal (applies [facility] (St Granulocytes to non-numeric Ziggy's results) [facility], ) Immature Grans 0.0 Normal (applies [facility] (S t (Abs) x10E3/uL to non-numeric Ziggy's results) [facility], ) ID Date Data Source [id number] 04/10/2017 12:00:00 AM EST [facility] ([facility], ) Name Value Range Interpretation Code Description Data Miroslava rce(s) Supporting Document(s ) TSH 1.500 Normal (applies to [facility] (St uIU/mL non-numeric results) [facility] ID Date Data Source [id number] 04/10/2017 12:00:00 AM EST [facility] ([facility], ) Name Value Range Interpretation Description Data Sup porting Code Source(s) Document(s ) Hemoglobin 5.4 % Normal (applies to [facility] (St A1c/Hemoglobin. non-numeric Ziggy's total in Blood results) Medical, ) ID Date Data Source [id number] 04/10/2017 12:00:00 AM EST [facility] ([facility], ) Name Value Range Interpretation Description Data Sup porting Code Source(s) Document(s ) Glucose, Serum 105 Above high [facility] (St mg/dL normal [facility], ) Creatinine, Serum 0.64 Normal (applies [facility] (St mg/dL to non-numeric Ziggy's results) Medical, ) Urea nitrogen 13 mg/dL Normal (applies [facility] (St [Mass/volume] in to non-numeric Ziggy's Serum or Plasma results) Medical, ) eGFR If Africn Am 128 Normal (applies [facility] (St mL/min/1 to non-numeric Ziggy's .73 results) Medical, ) BUN/Creatinine 20 Normal (applies [facility] (S t Ratio to non-numeric Ziggy's results) Medical, ) eGFR If NonAfricn 111 Normal (applies [facility] (St Am mL/min/1 to non-numeric Ziggy's .73 results) Medical, ) Potassium, Serum 3.8 Normal (applies [facility] (St mmol/L to non-numeric Ziggy's results) Medical, ) Sodium 138 Normal (applies [facility] (St [Moles/volume] in mmol/L to non-numeric Ziggy's Serum or Plasma results) Medical, ) Carbon dioxide, 23 Normal (applies [facility] ( St total mmol/L to non-numeric Ziggy's [Moles/volume] in results) Medical, Serum or Plasma PC) Chloride 98 Normal (applies [facility] (St [Moles/volume] in mmol/L to non-numeric Ziggy's Serum or Plasma results) Medical, ) Protein 7.5 g/dL Normal (applies [facility] (St [Mass/volume] in to non-numeric Ziggy's Serum or Plasma results) Medical, ) Calcium, Serum 8.7 Normal (applies [facility] (S t mg/dL to non-numeric Ziggy's results) Medical, ) Albumin, Serum 4.4 g/dL Normal (applies [facility] (S t to non-numeric Ziggy's results) Medical, ) A/G Ratio 1.4 Normal (applies [facility] (St to non-numeric Ziggy's results) Medical, ) Globulin, Total 3.1 g/dL Normal (applies [facility] ( St to non-numeric Ziggy's results) [facility], ) Alkaline 78 IU/L Normal (applies [facility] (St Phosphatase, S to non-numeric Ziggy's results) [facility], ) Bilirubin.total 0.2 Normal (applies [facility] ( St [Mass/volume] in mg/dL to non-numeric Ziggy's Serum or Plasma results) [facility], ) Alanine 19 IU/L Normal (applies [facility] (St aminotransferase to non-numeric Ziggy's [Enzymatic results) Medical, activity/volume] in ) Serum or Plasma Aspartate 23 IU/L Normal (applies [facility] (St aminotransferase to non-numeric Ziggy's [Enzymatic results) Medical, activity/volume] in ) Serum or Plasma ID Date Data Source [id number] 04/10/2017 12:00:00 AM EST [facility] ([facility], ) Name Value Range Interpretation Description Data Sup porting Code Source(s) Document(s ) Leukocytes 7.3 Normal (applies [facility] (St [#/volume] in x10E3/uL to non-numeric Ziggy's Blood by results) [facility], ) Automated count Erythrocytes 4.47 Normal (applies [facility] (St [#/volume] in x10E6/uL to non-numeric Ziggy's Blood by results) [facility], ) Automated count Hemoglobin 13.4 Normal (applies [facility] (St [Mass/volume] in g/dL to non-numeric Ziggy's Blood results) [facility], ) MCV 86 fL Normal (applies [facility] (St to non-numeric Ziggy's results) [facility], ) Hematocrit 38.4 % Normal (applies [facility] (St [Volume to non-numeric Ziggy's Fraction] of results) [facility], ) Blood by Automated count MCH 30.0 pg Normal (applies [facility] (St to non-numeric Ziggy's results) [facility], ) MCHC 34.9 Normal (applies [facility] (St g/dL to non-numeric Ziggy's results) [facility], ) Platelets 267 Normal (applies [facility] (St [#/area] in x10E3/uL to non-numeric Ziggy's Blood by results) [facility], ) Microscopy high power field Neutrophils [#] 57 % Normal (applies [facility] ( St in Body fluid by to non-numeric Ziggy's Manual count results) Medical, ) RDW 13.3 % Normal (applies [facility] (St to non-numeric Ziggy's results) Medical, ) Monocytes 7 % Normal (applies [facility] (St [#/volume] in to non-numeric Ziggy's Cord blood results) Medical, ) Lymphs 33 % Normal (applies [facility] (St to non-numeric Ziggy's results) Medical, ) Eos 2 % Normal (applies [facility] (St to non-numeric Ziggy's results) Medical, ) Basos 1 % Normal (applies [facility] (St to non-numeric Ziggy's results) Medical, ) Lymphs 2.4 Normal (applies [facility] (St (Absolute) x10E3/uL to non-numeric Ziggy's results) Medical, ) Monocytes(Absolu 0.5 Normal (applies [facility] (St te) x10E3/uL to non-numeric Ziggy's results) Medical, ) Neutrophils 4.1 Normal (applies [facility] (St (Absolute) x10E3/uL to non-numeric Ziggy's results) Medical, ) Baso (Absolute) 0.1 Normal (applies [facility] ( St x10E3/uL to non-numeric Ziggy's results) Medical, ) Eos (Absolute) 0.2 Normal (applies [facility] (S t x10E3/uL to non-numeric Ziggy's results) Medical, ) Immature Grans 0.0 Normal (applies [facility] (S t (Abs) x10E3/uL to non-numeric Ziggy's results) Medical, ) Immature 0 % Normal (applies [facility] (St Granulocytes to non-numeric Ziggy's results) Medical, ) ID Date Data Source [id number] 12/11/2016 12:00:00 AM EDT [facility] ([facility], ) Name Value Range Interpretation Code Description Data Miroslava rce(s) Supporting Document(s ) ID Date Data Source [id number] 12/11/2016 12:00:00 AM EDT [facility] ([facility], ) Name Value Range Interpretation Code Description Data Miroslava rce(s) Supporting Document(s ) Result 1 No growth Normal (applies to [facility] (St non-numeric Ziggy's results) Medical, ) ID Date Data Source [id number] 12/11/2016 12:00:00 AM EDT [facility] ([facility], ) Name Value Range Interpretation Description Data Sup porting Code Source(s) Document(s ) Urine Final Normal (applies to [facility] (St Culture, report non-numeric Ziggy's Routine results) [facility], ) ID Date Data Source [id number] 12/11/2016 12:00:00 AM EDT [facility] ([facility], ) Name Value Range Interpretation Description Data Sup porting Code Source(s) Document(s ) Cancer 11.2 U/mL Normal [facility] Antigen (CA) non-numeric Ziggy's 125 results) [facility], ) ID Date Data Source [id number] 12/11/2016 12:00:00 AM EDT [facility] ([facility], ) Name Value Range Interpretation Description Data Sup porting Code Source(s) Document(s ) Glucose, 86 mg/dL Normal [facility] Serum non-numeric Ziggy's results) [facility], ) Urea nitrogen 14 mg/dL Normal [facility] (St [Mass/volume] non-numeric Ziggy's in Serum or results) [facility], ) Plasma Creatinine, 0.86 Normal (applies to [facility] (S t Serum mg/dL non-numeric Ziggy's results) [facility], ) eGFR If 97 Normal (applies to [facility] (St Africn Am mL/min/1. non-numeric Ziggy's 73 results) [facility], ) eGFR If 84 Normal (applies to [facility] (St NonAfricn Am mL/min/1. non-numeric Ziggy's 73 results) [facility], ) BUN/Creatinin 16 Normal (applies to [facility] (St e Ratio non-numeric Ziggy's results) [facility], ) Sodium 140 Normal ([facility] (St [Moles/volume mmol/L non-numeric Ziggy's ] in Serum or results) [facility], ) Plasma Potassium, 3.9 Normal (applies to [facility] (St Serum mmol/L non-numeric Ziggy's results) [facility], ) Carbon 23 mmol/L Normal (applies to [facility] (St dioxide, non-numeric Ziggy's total results) [facility], ) [Moles/volume ] in Serum or Plasma Chloride 102 Normal (applies to [facility] (St [Moles/volume mmol/L non-numeric Ziggy's ] in Serum or results) Medical, PC) Plasma Calcium, 9.2 mg/dL Normal (applies to [facility] (St Serum non-numeric Ziggy's results) Medical, PC) ID Date Data Source [id number] 12/11/2016 12:00:00 AM EDT [facility] ([facility]) Name Value Range Interpretation Description Data Sup porting Code Source(s) Document(s ) Specific gravity 1.020 Normal (applies [facility] (St of Pericardial to non-numeric [facility] fluid by results) Medical, Refractometry PC) pH of Lower 7.0 Normal (applies [facility] (St respiratory to non-numeric [facility] specimen results) Medical, PC) Urine-Color Yellow Normal (applies [facility] (St to non-numeric [facility] results) Medical, PC) Appearance of Cloudy Abnormal (applies [facility] ( St Abdomen to non-numeric [facility] results) Medical, PC) WBC Esterase Negative Normal (applies [facility] (St to non-numeric [facility] results) Medical, PC) Protein Negative Normal (applies [facility] (St [Mass/volume] in to non-numeric [facility] Lower results) Medical, respiratory PC) specimen Glucose Negative Normal (applies [facility] (St [Mass/volume] in to non-numeric [facility] Urine collected results) Medical, for unspecified PC) duration Occult Blood Negative Normal (applies [facility] (St to non-numeric [facility] results) Medical, PC) Ketones Negative Normal (applies [facility] (St [Presence] in to non-numeric [facility] Blood by Tablet results) Medical, PC) Bilirubin Negative Normal (applies [facility] (St [Presence] in to non-numeric [facility] Peritoneal fluid results) Medical, PC) Urobilinogen,Karen 0.2 EU/dL Normal (applies [facility] (St i-Qn to non-numeric [facility] results) Medical, PC) Nitrite, Urine Negative Normal (applies [facility] (S t to non-numeric [facility] results) Medical, PC) Microscopic Normal (applies [facility] (St Examination to non-numeric [facility] results) Medical, ) ID Date Data Source [id number] 12/11/2016 12:00:00 AM EDT [facility] ([facility]) Name Value Range Interpretation Code Description Data Miroslava rce(s) Supporting Document(s ) ID Date Data Source [id number] 12/11/2016 12:00:00 AM EDT [facility] ([facility], ) Name Value Range Interpretation Code Description Data Miroslava rce(s) Supporting Document(s ) Result 1 No growth Normal (applies to [facility] (St non-numeric [facility] results) [facility], ) ID Date Data Source [id number] 12/11/2016 12:00:00 AM EDT [facility], ) Name Value Range Interpretation Description Data Sup porting Code Source(s) Document(s ) Urine Final Normal (applies to [facility] (St Culture, report non-numeric [facility] Routine results) [facility], ) ID Date Data Source [id number] 12/11/2016 12:00:00 AM EDT [facility] ([facility], ) Name Value Range Interpretation Description Data Sup porting Code Source(s) Document(s ) Cancer 11.2 U/mL Normal (applies to [facility] (St Antigen (CA) non-numeric [facility] 125 results) [facility], ) ID Date Data Source [id number] 12/11/2016 12:00:00 AM EDT [facility] ([facility], ) Name Value Range Interpretation Description Data Sup porting Code Source(s) Document(s ) Glucose, 86 mg/dL Normal (applies to [facility] (St Serum non-numeric [facility] results) [facility], ) Creatinine, 0.86 Normal (applies to [facility] (S t Serum mg/dL non-numeric [facility] results) [facility], ) Urea nitrogen 14 mg/dL Normal (applies to [facility] (St [Mass/volume] non-numeric [facility] in Serum or results) [facility], ) Plasma eGFR If 84 Normal (applies to [facility] (St NonAfricn Am mL/min/1. non-numeric [facility] 73 results) Medical, ) eGFR If 97 Normal (applies to [facility] (St Africn Am mL/min/1. non-numeric [facility] 73 results) Medical, ) BUN/Creatinin 16 Normal (applies to [facility] (St e Ratio non-numeric [facility] results) [facility], ) Sodium 140 Normal (applies to [facility] (St [Moles/volume mmol/L non-numeric [facility]'s ] in Serum or results) Medical, PC) Plasma Carbon 23 mmol/L Normal (applies to [facility] (St dioxide, non-numeric [facility] total results) Medical, PC) [Moles/volume ] in Serum or Plasma Potassium, 3.9 Normal (applies to [facility] (St Serum mmol/L non-numeric [facility] results) Medical, PC) Chloride 102 Normal (applies to [facility] (St [Moles/volume mmol/L non-numeric [facility]'s ] in Serum or results) Medical, PC) Plasma Calcium, 9.2 mg/dL Normal (applies to [facility] (St Serum non-numeric [facility] results) Medical, PC) ID Date Data Source [id number] 12/11/2016 12:00:00 AM EDT [facility] ([facility]) Name Value Range Interpretation Description Data Sup porting Code Source(s) Document(s ) Specific gravity 1.020 Normal (applies [facility] (St of Pericardial to non-numeric [facility] fluid by results) [facility], [facility]) pH of Lower 7.0 Normal (applies [facility] (St respiratory to non-numeric [facility] specimen results) Medical, PC) Urine-Color Yellow Normal (applies [facility] (St to non-numeric [facility] results) [facility], PC) Appearance of Cloudy Abnormal (applies [facility] ( St Abdomen to non-numeric [facility] results) Medical, PC) WBC Esterase Negative Normal (applies [facility] (St to non-numeric [facility] results) Medical, PC) Protein Negative Normal (applies [facility] (St [Mass/volume] in to non-numeric [facility] Lower results) Medical, respiratory PC) specimen Glucose Negative Normal (applies [facility] (St [Mass/volume] in to non-numeric [facility] Urine collected results) Medical, for unspecified PC) duration Ketones Negative Normal (applies [facility] (St [Presence] in to non-numeric [facility] Blood by Tablet results) Medical, PC) Occult Blood Negative Normal (applies [facility] (St to non-numeric [facility] results) Medical, PC) Bilirubin Negative Normal (applies [facility] (St [Presence] in to non-numeric [facility] Peritoneal fluid results) Medical, PC) Urobilinogen,Karen 0.2 EU/dL Normal (applies [facility] (St i-Qn to non-numeric [facility] results) Medical, ) Microscopic Normal (applies [facility] (St Examination to non-numeric [facility]'s results) Medical, ) Nitrite, Urine Negative Normal (applies [facility] (S t to non-numeric [facility]'s results) Medical, ) ID Date Data Source [id number] 12/11/2016 12:00:00 AM EDT [facility] ([facility], ) Name Value Range Interpretation Code Description Data Miroslava rce(s) Supporting Document(s ) ID Date Data Source [id number] 12/11/2016 12:00:00 AM EDT [facility] ([facility], ) Name Value Range Interpretation Code Description Data Miroslava rce(s) Supporting Document(s ) Result 1 No growth Normal (applies to [facility] (St non-numeric [facility] results) [facility], ) ID Date Data Source [id number] 12/11/2016 12:00:00 AM EDT [facility] ([facility], ) Name Value Range Interpretation Description Data Sup porting Code Source(s) Document(s ) Urine Final Normal (applies to [facility] (St Culture, report non-numeric [facility] Routine results) Medical, ) ID Date Data Source [id number] 12/11/2016 12:00:00 AM EDT [facility] ([facility], ) Name Value Range Interpretation Description Data Sup porting Code Source(s) Document(s ) Cancer 11.2 U/mL Normal (applies to [facility] (St Antigen (CA) non-numeric [facility] 125 results) Medical, ) ID Date Data Source [id number] 12/11/2016 12:00:00 AM EDT [facility] ([facility], ) Name Value Range Interpretation Description Data Sup porting Code Source(s) Document(s ) Glucose, 86 mg/dL Normal (applies to [facility] (St Serum non-numeric [facility]'s results) Medical, ) Creatinine, 0.86 Normal (applies to [facility] (S t Serum mg/dL non-numeric [facility]'s results) [facility], ) Urea nitrogen 14 mg/dL Normal (applies to [facility] (St [Mass/volume] non-numeric [facility]'s in Serum or results) Medical, ) Plasma eGFR If 84 Normal (applies to [facility] (St NonAfricn Am mL/min/1. non-numeric [facility] 73 results) Medical, ) eGFR If 97 Normal (applies to [facility] (St Africn Am mL/min/1. non-numeric [facility] 73 results) Medical, PC) Sodium 140 Normal (applies to [facility] (St [Moles/volume mmol/L non-numeric [facility]gy's ] in Serum or results) Medical, PC) Plasma Potassium, 3.9 Normal (applies to [facility] (St Serum mmol/L non-numeric [facility] results) Medical, PC) BUN/Creatinin 16 Normal (applies to [facility] (St e Ratio non-numeric [facility] results) Medical, PC) Chloride 102 Normal (applies to [facility] (St [Moles/volume mmol/L non-numeric [facility]'s ] in Serum or results) Medical, PC) Plasma Carbon 23 mmol/L Normal (applies to [facility] (St dioxide, non-numeric [facility]'s total results) Medical, ) [Moles/volume ] in Serum or Plasma Calcium, 9.2 mg/dL Normal (applies to [facility] (St Serum non-numeric [facility] results) Medical, ) ID Date Data Source [id number] 12/11/2016 12:00:00 AM EDT [facility] ([facility], ) Name Value Range Interpretation Description Data Sup porting Code Source(s) Document(s ) Specific gravity 1.020 Normal (applies [facility] (St of Pericardial to non-numeric [facility]'s fluid by results) [facility], Refractometry PC) Urine-Color Yellow Normal (applies [facility] (St to non-numeric [facility]'s results) Medical, PC) pH of Lower 7.0 Normal (applies [facility] (St respiratory to non-numeric [facility] specimen results) Medical, PC) Protein Negative Normal (applies [facility] (St [Mass/volume] in to non-numeric [facility]'s Lower results) Medical, respiratory PC) specimen Appearance of Cloudy Abnormal (applies [facility] ( St Abdomen to non-numeric [facility]'s results) Medical, PC) WBC Esterase Negative Normal (applies [facility] (St to non-numeric [facility]'s results) Medical, PC) Ketones Negative Normal (applies [facility] (St [Presence] in to non-numeric [facility] Blood by Tablet results) Medical, PC) Glucose Negative Normal (applies [facility] (St [Mass/volume] in to non-numeric [facility]'s Urine collected results) Medical, for unspecified PC) duration Bilirubin Negative Normal (applies [facility] (St [Presence] in to non-numeric [facility]'s Peritoneal fluid results) Medical, PC) Occult Blood Negative Normal (applies [facility] (St to non-numeric [facility]'s results) Medical, PC) Urobilinogen,Karen 0.2 EU/dL Normal (applies [facility] (St i-Qn to non-numeric [facility]'s results) Medical, PC) Nitrite, Urine Negative Normal (applies [facility] (S t to non-numeric [facility]'s results) Medical, PC) ID Date Data Source [id number] 11/26/2016 12:00:00 AM EDT [facility] ([facility]) Name Value Range Interpretation Description Data Sup porting Code Source(s) Document(s ) Antimicrobial Normal (applies [facility] (St Susceptibility to non-numeric [facility]'s results) Medical, ) Result 1 Escherichia Abnormal [facility] (St coli (applies to [facility] non-numeric Medical, results) PC) ID Date Data Source [id number] 11/26/2016 12:00:00 AM EDT [facility] ([facility]) Name Value Range Interpretation Description Data Sup porting Code Source(s) Document(s ) Urine Final Abnormal (applies [facility] (St Culture, report to non-numeric [facility] Routine results) Medical, PC) ID Date Data Source [id number] 11/26/2016 12:00:00 AM EDT [facility] ([facility]) Name Value Range Interpretation Description Data Sup porting Code Source(s) Document(s ) Antimicrobial Normal (applies [facility] (St Susceptibility to non-numeric [facility]'s results) Medical, PC) Result 1 Escherichia Abnormal [facility] (St coli (applies to [facility] non-numeric Medical, results) PC) ID Date Data Source [id number] 11/26/2016 12:00:00 AM EDT [facility] ([facility]) Name Value Range Interpretation Description Data Sup porting Code Source(s) Document(s ) Urine Final Abnormal (applies [facility] (St Culture, report to non-numeric [facility] Routine results) Medical, PC) ID Date Data Source [id number] 11/26/2016 12:00:00 AM EDT [facility] ([facility], ) Name Value Range Interpretation Description Data Sup porting Code Source(s) Document(s ) Result 1 Escherichia Abnormal (applies [facility] (St coli to non-numeric [facility]'s results) Medical, ) ID Date Data Source [id number] 11/26/2016 12:00:00 AM EDT [facility] (St [facility], ) Name Value Range Interpretation Description Data Sup porting Code Source(s) Document(s ) Urine Final Abnormal (applies [facility] (St Culture, report to non-numeric [facility] Routine results) Medical, PC) Procedure Social History Code Duration Value Status Description Data Source(s ) Smoking 10/26/2019 Non smoker completed Non smoker Social [facility] (St 12:00:00 AM EDT Social alcohol alcohol Denied [facility] [place], [place], Denied illicit illicit drug use PC) drug use Smoking 10/26/2019 Unknown if ever completed Unknown if ever [facility] (St 12:00:00 AM EDT smoked smoked [facility], PC) Smoking 10/06/2019 no smoking completed no smoking social [facility] (St 12:00:00 AM EDT social drinking drinking [facility], denied illicit illicit drug used PC ) drug used Smoking 10/06/2019 Unknown if ever completed Unknown if ever [facility] (St 12:00:00 AM EDT smoked smoked [facility], PC) Smoking 09/19/2019 no smoking completed no smoking social [facility] (St 12:00:00 AM EDT social drinking drinking [facility], denied illicit illicit drug used PC ) drug used Smoking 09/19/2019 Unknown if ever completed Unknown if ever [facility] (St 12:00:00 AM EDT smoked smoked [facility], PC) Vital Signs ID Date Data Source [id number] Name Value Range Interpretation Code Description Data Source(s) Heart rate 73 /min 73 /min [facility] [place] ) Inhaled oxygen 99 % 99 % [facility] ([facility], ) Systolic blood 124 mm[Hg] 124 mm[Hg] [facility] ([facility] [place] , ) Body weight 182 lb 182 lb [facility] ([facility] , ) Body height 62 in 62 in [facility] ) Body mass index 33.3 kg/m2 33.3 kg/m2 [facility] (S t (BMI) [Ratio] [facility], ) Diastolic blood 72 mm[Hg] 72 mm[Hg] [facility] (S t pressure [facility]) Body mass index 32.9 kg/m2 32.9 kg/m2 [facility] (S t (BMI) [Ratio] [facility], ) Diastolic blood 70 mm[Hg] 70 mm[Hg] [facility] (S t pressure [facility]) Systolic blood 122 mm[Hg] 122 mm[Hg] [facility] ([facility]) Body weight 180 lb 180 lb [facility] ([facility]) Body height 62 in 62 in [facility] ([facility]) Heart rate 89 /min 89 /min [facility] ([facility]) Body temperature 98.2 F 98.2 F [facility] ( [facility]) Inhaled oxygen 98 % 98 % [facility] ([facility]) Body mass index 32.9 kg/m2 32.9 kg/m2 [facility] (S t (BMI) [Ratio] [facility]) Diastolic blood 72 mm[Hg] 72 mm[Hg] [facility] (S t [facility]) Systolic blood 118 mm[Hg] 118 mm[Hg] [facility] ([facility]) Body weight 180 lb 180 lb [facility] ([facility]) Body height 62 in 62 in [facility] ([facility]) Heart rate 89 /min 89 /min [facility] ([facility]) Body temperature 98.2 F 98.2 F [facility] ( [facility]) Inhaled oxygen 98 % 98 % [facility] ([facility]) Body mass index 32.9 kg/m2 32.9 kg/m2 [facility] (S t (BMI) [Ratio] [facility], ) Diastolic blood 72 mm[Hg] 72 mm[Hg] [facility] (S t pressure [facility]) Systolic blood 118 mm[Hg] 118 mm[Hg] [facility] ([facility]) Body weight 180 lb 180 lb [facility] ([facility]) Body height 62 in 62 in [facility] ([facility]) Heart rate 89 /min 89 /min [facility] ([facility]) Body temperature 98.2 F 98.2 F [facility] ( [facility]) Inhaled oxygen 98 % 98 % [facility] ([facility]) Body mass index 32.9 kg/m2 32.9 kg/m2 [facility] (S t (BMI) [Ratio] [facility], ) Diastolic blood 72 mm[Hg] 72 mm[Hg] [facility] (S [facility]) Systolic blood 118 mm[Hg] 118 mm[Hg] [facility] ([facility]) Body weight 180 lb 180 lb [facility] ([facility]) Body height 62 in 62 in [facility] ([facility]) Heart rate 88 /min 88 /min [facility] ([facility]) Respiratory rate 14 /min 14 /min [facility] ( [facility]) Body temperature 97.8 F 97.8 F [facility] ( [facility]) Inhaled oxygen 99 % 99 % [facility] ([facility]) Body mass index 32.8 kg/m2 32.8 kg/m2 [facility] (S t (BMI) [Ratio] [facility]) Diastolic blood 76 mm[Hg] 76 mm[Hg] [facility] (S [facility]) Systolic blood 110 mm[Hg] 110 mm[Hg] [facility] ([facility]) Body weight 185 lb 185 lb [facility] ([facility]) Body height 63 in 63 in [facility] ([facility]) Heart rate 88 /min 88 /min [facility] ([facility]) Respiratory rate 14 /min 14 /min [facility] ( [facility]) Body temperature 97.8 F 97.8 F [facility] ( [facility]) Inhaled oxygen 99 % 99 % [facility] ([facility]) Body mass index 32.8 kg/m2 32.8 kg/m2 [facility] (S t (BMI) [Ratio] [facility]) Diastolic blood 76 mm[Hg] 76 mm[Hg] [facility] (S t pressure [facility]) Systolic blood 110 mm[Hg] 110 mm[Hg] [facility] ([facility]) Body weight 185 lb 185 lb [facility] ([facility]) Body height 63 in 63 in [facility] ([facility]) Heart rate 88 /min 88 /min [facility] ([facility]) Respiratory rate 14 /min 14 /min [facility] ( [facility]) Body temperature 97.8 F 97.8 F [facility] ( [facility]) Inhaled oxygen 99 % 99 % [facility] ([facility]) Body mass index 32.8 kg/m2 32.8 kg/m2 [facility] (S t (BMI) [Ratio] [facility]) Diastolic blood 76 mm[Hg] 76 mm[Hg] [facility] (S t pressure [facility]) Systolic blood 110 mm[Hg] 110 mm[Hg] [facility] ([facility]) Body weight 185 lb 185 lb [facility] ([facility]) Body height 63 in 63 in [facility] ([facility]) Body temperature 96.8 [degF] 0 - 200 Below low normal 96.8 [degF] [facility] Body temperature 36 Kathy 0 - 99.9 Below low normal 36 Kathy [facility] Diastolic blood 73 mm[Hg] 0 - 999 Normal (applies to 73 mm[Hg] [facility] pressure non-numeric [facility] results) Systolic blood 114 mm[Hg] 0 - 999 Normal (applies to 114 mm[Hg] [facility] pressure non-numeric [facility] results) Deprecated Oxygen 99 % 0 - 999 Normal (applies to 99 % [facility] saturation in non-numeric Health Sys tem Capillary blood by results) Oximetry Respiratory rate 16 0 - 999 Normal (applies to 16 [facility] non-numeric [facility] results) Heart rate 83 0 - 999 Normal (applies to 83 [facility] [facility] non-numeric [facility] results) Body surface area 1.8 m2 1.8 m2 [facility] Derived from Health Syste m formula Body mass index 31.8 kg/m2 31.8 kg/m2 [facility] e (BMI) [Ratio] Health Syst Body weight 81.64 kg 81.64 kg [facility] Measured [facility] Body height 160.02 cm 160.02 cm [facility] Diastolic blood 64 mm[Hg] 64 mm[Hg] [facility] (S t pressure [facility]) Systolic blood 130 mm[Hg] 130 mm[Hg] [facility] ([facility]) Body height 63 in 63 in [facility] ([facility]) Diastolic blood 64 mm[Hg] 64 mm[Hg] [facility] (S t pressure [facility]) Systolic blood 130 mm[Hg] 130 mm[Hg] [facility] ([facility]) Body height 63 in 63 in [facility] ([facility]) Diastolic blood 64 mm[Hg] 64 mm[Hg] [facility] (S t pressure [facility]) Systolic blood 130 mm[Hg] 130 mm[Hg] [facility] ([facility]) Body height 63 in 63 in [facility] ([facility]) Body temperature 97.9 F 97.9 F [facility] ( [facility]) Body mass index 30.8 kg/m2 30.8 kg/m2 [facility] (S t (BMI) [Ratio] [facility]) Diastolic blood 72 mm[Hg] 72 mm[Hg] [facility] (S t pressure [facility]) Systolic blood 116 mm[Hg] 116 mm[Hg] [facility] ([facility]) Body weight 174 lb 174 lb [facility] ([facility]) Body height 63 in 63 in [facility] ([facility]) Body temperature 97.9 F 97.9 F [facility] ( [facility]) Body mass index 30.8 kg/m2 30.8 kg/m2 [facility] (S t (BMI) [Ratio] [facility]) Diastolic blood 72 mm[Hg] 72 mm[Hg] [facility] (S t pressure [facility]) Systolic blood 116 mm[Hg] 116 mm[Hg] [facility] ([facility]) Body weight 174 lb 174 lb [facility] ([facility]) Body height 63 in 63 in [facility] ([facility]) Body temperature 97.9 F 97.9 F [facility] ( [facility]) Body mass index 30.8 kg/m2 30.8 kg/m2 [facility] (S t (BMI) [Ratio] [facility]) Diastolic blood 72 mm[Hg] 72 mm[Hg] [facility] (S t [facility]) Systolic blood 116 mm[Hg] 116 mm[Hg] [facility] ([facility]) Body weight 174 lb 174 lb [facility] ([facility]) Body height 63 in 63 in [facility] ([facility]) Heart rate 76 /min 76 /min [facility] ([facility]) Respiratory rate 12 /min 12 /min [facility] ( [facility]) Inhaled oxygen 100 % 100 % [facility] ([facility]) Body mass index 30.8 kg/m2 30.8 kg/m2 [facility] (S t (BMI) [Ratio] [facility], ) Diastolic blood 70 mm[Hg] 70 mm[Hg] [facility] (S t [facility]) Systolic blood 116 mm[Hg] 116 mm[Hg] [facility] ([facility]) Body weight 174 lb 174 lb [facility] ([facility]) Body height 63 in 63 in [facility] ([facility]) Heart rate 76 /min 76 /min [facility] ([facility]) Heart rate 76 /min 76 /min [facility] ([facility]) Respiratory rate 12 /min 12 /min [facility] ( [facility]) Inhaled oxygen 100 % 100 % [facility] ([facility]) Body mass index 30.8 kg/m2 30.8 kg/m2 [facility] (S t (BMI) [Ratio] [facility]) Diastolic blood 70 mm[Hg] 70 mm[Hg] [facility] (S t [facility]) Systolic blood 116 mm[Hg] 116 mm[Hg] [facility] ([facility]) Body weight 174 lb 174 lb [facility] ([facility]) Body height 63 in 63 in [facility] ([facility]) Respiratory rate 12 /min 12 /min [facility] ( [facility]) Inhaled oxygen 100 % 100 % [facility] ([facility]) Body mass index 30.8 kg/m2 30.8 kg/m2 [facility] (S t (BMI) [Ratio] [facility]) Diastolic blood 70 mm[Hg] 70 mm[Hg] [facility] (S t [facility]) Systolic blood 116 mm[Hg] 116 mm[Hg] [facility] ([facility]) Body weight 174 lb 174 lb [facility] ([facility]) Body height 63 in 63 in [facility] ([facility]) Heart rate 68 /min 68 /min [facility] ([facility]) Respiratory rate 12 /min 12 /min [facility] ( [facility]) Inhaled oxygen 99 % 99 % [facility] ([facility]) Body mass index 30.8 kg/m2 30.8 kg/m2 [facility] (S t (BMI) [Ratio] [facility]) Diastolic blood 74 mm[Hg] 74 mm[Hg] [facility] (S t [facility]) Systolic blood 126 mm[Hg] 126 mm[Hg] [facility] ([facility]) Body weight 174 lb 174 lb [facility] ([facility]) Body height 63 in 63 in [facility] ([facility]) Heart rate 68 /min 68 /min [facility] ([facility]) Respiratory rate 12 /min 12 /min [facility] ( [facility]) Inhaled oxygen 99 % 99 % [facility] ([facility]) Body mass index 30.8 kg/m2 30.8 kg/m2 [facility] (S t (BMI) [Ratio] [facility]) Diastolic blood 74 mm[Hg] 74 mm[Hg] [facility] (S t pressure [facility]) Systolic blood 126 mm[Hg] 126 mm[Hg] [facility] ([facility]) Body weight 174 lb 174 lb [facility]) Body height 63 in 63 in [facility] ([facility]) Heart rate 68 /min 68 /min [facility] ([facility]) Respiratory rate 12 /min 12 /min [facility] ( [facility]) Inhaled oxygen 99 % 99 % [facility] ([facility]) Body mass index 30.8 kg/m2 30.8 kg/m2 [facility] (S (BMI) [Ratio] [facility]) Diastolic blood 74 mm[Hg] 74 mm[Hg] [facility] ([facility]) Systolic blood 126 mm[Hg] 126 mm[Hg] [facility] ([facility]) Body weight 174 lb 174 lb [facility] ([facility]) Body height 63 in 63 in [facility] ([facility]) Patient Treatment Plan of Care Planned Activity Planned Date Details Description Data Source (s) [address] [facility] [place] MG/ACTUAT Metered Dose Inhaler 200 ACTUAT [address] [facility] [place] MG/ACTUAT Metered Dose Inhaler Ibuprofen 800 MG Oral [facility] Tablet
--- NOTE | 2019-11-18 13:21 | HP ---
History & Physical Update - History History: No Change - Physical Physical: No Change - Assessment Assessment: No Change - Plan Plan: No Change (Hysteroscopy, D&C, possible excision of a uterine mass.)
[2019-11-18] MEDS ORDERED: oxyCODONE HCL 5 MG TABLET PO PRN (13:45)
[2019-11-18] MEDS ORDERED: ONDANSETRON 4 MG/2 ML VIAL IVPUSH PRN (13:45)
[2019-11-18] MEDS ORDERED: PROMETHAZINE HCL 25 MG/1 ML VIAL IVPB PRN (13:45)
[2019-11-18] MEDS ORDERED: LACTATED RINGERS SOLUTION 1,000 ML IV SCH (13:45)
[2019-11-18] MEDS ORDERED: MIDAZOLAM HCL 2 MG/2 ML SINGLE DOSE VIAL ONE ×2 (13:47→14:21)
[2019-11-18] MEDS ORDERED: BUPIVACAINE HCL 100 ML ONE (13:48)
[2019-11-18] MEDS ORDERED: SODIUM CHLORIDE 0.9% P/F 10 ML VIAL IJ ONE (14:22)
[2019-11-18] MEDS ORDERED: ceFAZolin SODIUM 1 GM VIAL ONE (14:22)
[2019-11-18] MEDS ORDERED: ceFAZolin 2 GRAM PREMIX BAG IVPB ONE (14:24)
--- NOTE | 2019-11-18 14:46 | OP ---
Operative Note - Note: Operative Date: 11/18/19 Pre-Operative Diagnosis: Metrorrhagia Operation: Hysteroscopy, D&C Findings: Small uterine cavity w/o lesions, few adhesions/synechiae Post-Operative Diagnosis: Same as Pre-op Surgeon: Rocael Centeno Anesthesiologist/PRODUCTION ILLUSTRATOR: Bowen Ortiz Anesthesia: Spinal Specimens Removed: Endometrial curettings Estimated Blood Loss (mls): 5 Blood Volume Replaced (mls): 0 Fluid Volume Replaced (mls): 500 Operative Report Dictated: Yes
[2019-11-18 21:21] VITALS: BP 129/80; PULSE 73; TEMP 98
--- NOTE | 2019-11-22 17:46 | PATH ---
Surgical Pathology Report Patient Name: JESSICA MARCUS Med. Rec. #: [id number] /Age/Gender: 1975 (Age: 44) / F Account: [id number] Location: [facility] SURGICAL Taken: 11/18/2019 Received: 11/21/2019 Reported: 11/22/2019 Physicians: Rocael Centeno M.D. Specimen(s) Received ENDOMETRIAL CURETTINGS Clinical History Pelvic pain, metromenorrhagia Final Diagnosis ENDOMETRIAL CURETTINGS: NO ENDOMETRIAL TISSUE PRESENT FOR EVALUATION. FRAGMENTS OF ENDOCERVICAL TISSUE WITH NO DIAGNOSTIC ABNORMALITIES. Electronically Signed Remedios Alfaro M.D. Gross Description Received in formalin labeled "endometrial curettings," is a 2.2 x 1.7 x 0.3 cm aggregate drake-brown soft tissue fragments. The formalin is filtered and the specimen is entirely submitted in one cassette. /11/21/2019 [facility]/21/[facility]
--- NOTE | 2019-11-27 14:50 | OP ---
DATE OF OPERATION: 11/18/2019 PREOPERATIVE DIAGNOSES: 1. Metrorrhagia. 2. Patient is status post endometrial ablation. 3. Obesity. 4. Pelvic pains. POSTOPERATIVE DIAGNOSES: 1. Metrorrhagia. 2. Patient is status post endometrial ablation. 3. Obesity. 4. Pelvic pains. PROCEDURE: Hysteroscopy, dilation and curettage. SURGEON: Mayuri Alexander MD ANESTHESIOLOGIST: Bowen Ortiz MD ANESTHESIA: Spinal. COMPLICATIONS: None. ESTIMATED BLOOD LOSS: 5 mL INTRAVENOUS FLUIDS: 500 mL PATHOLOGY: Endometrial curettings. FINDINGS: Examination under anesthesia revealed a small uterus with no pelvic or adnexal masses. Hysteroscopy revealed a small uterine cavity without lesions. There were a few adhesions/synechiae. There were no complications. PROCEDURE DESCRIPTION: The patient was met preoperatively. Risks, benefits, alternatives of surgery were discussed in details. All questions were answered. The consent form was reviewed and discussed. The patient verbalized her understanding and requested to proceed with the surgery. The patient was brought to the OR with the IV running. She was placed on the surgical table in the sitting position. A spinal anesthesia was achieved without difficulty. The patient was then placed in a supine position. The timeout was conducted as per standard protocol. The patient was then positioned in a dorsal lithotomy position using adjustable Conner stirrups. She was examined under anesthesia with the findings as described above. The patient was prepped and draped in the usual sterile fashion. A weighted speculum was introduced inside the vagina with good visualization of the cervix. The cervix was grasped with a single-tooth tenaculum. The endocervical canal was gently dilated using graduated dilators to accommodate a size 13 David dilator. Once this was done, a diagnostic hysteroscope was gently introduced inside the cervical canal. The hysteroscope was advanced inside the endometrial cavity. The endometrial cavity appeared small with synechiae. At that point the hysteroscope was removed and sharp endometrial curettage was performed. The specimen was submitted to Pathology for evaluation. Once this was completed, a hysteroscope was placed inside the uterine cavity one more time. Good hemostasis was noted. The instruments were then removed from the patient. Sponge, lap, instrument counts were correct. Good hemostasis was confirmed. The patient was returned to supine position. She was then transferred to recovery room in stable condition and awake. MAYURI ALEXANDER M.D. JUAN/[id number]
== END 2019-11-18 19:20 | disposition home or self-care (01) ==
LOC: JASU-SURG 05:20
PROVIDERS: ATTEND Obstetrics & Gynecology
PROC: 0UDB7ZX Extraction of Endometrium, Via Natural or Artificial Opening, Diagnostic (ICD-10-PCS; principal; 2019-11-18 13:00)
PROC: 0UJD8ZZ Inspection of Uterus and Cervix, Via Natural or Artificial Opening Endoscopic (ICD-10-PCS; 2019-11-18 13:00)
DX: N92.1 Excessive and frequent menstruation with irregular cycle (principal); E66.01 Morbid (severe) obesity due to excess calories; R10.2 Pelvic and perineal pain; Z98.890 Other specified postprocedural states
CPT/HCPCS: 86850; 86900; 86901; 88305-TC; 94760

== ENCOUNTER 2020-09-06 14:52 | Emergency (ER) | payer OTHER ==
[2020-09-06 15:05] VITALS: BMI 31.1
[2020-09-06] MEDS ORDERED: ACETAMINOPHEN 325 MG TABLET (FP) PO ONE (17:01)
[2020-09-06] MEDS ORDERED: ACETAMINOPHEN 325 MG TABLET (FP) ONE (17:07)
[2020-09-06] MEDS ORDERED: METOCLOPRAMIDE HCL INJECTION 10 MG/2 ML VIAL IVPB ONE (17:11)
[2020-09-06] MEDS ORDERED: SODIUM CHLORIDE 0.9% 500 ML INFUS.BAG IV ONE (17:11)
[2020-09-06] MEDS ORDERED: ONDANSETRON 4 MG/2 ML VIAL IVPUSH ONE (17:11)
[2020-09-06] MEDS ORDERED: ONDANSETRON 4 MG/2 ML VIAL ONE (17:26)
[2020-09-06] MEDS ORDERED: METOCLOPRAMIDE HCL INJECTION 10 MG/2 ML VIAL ONE (17:26)
[2020-09-06 17:52] LABS: BASO % 1.2 % (0-2.0); EOS % 1.7 % (0-4.5); HEMATOCRIT 39.6 % (32.4-45.2); HEMOGLOBIN 13.5 GM/dL (10.7-15.3); LYMPH % 31.2 % (8-40); MCH 30.1 pg (25.7-33.7); MCHC 34.2 g/dl (32.0-36.0); MEAN PLT VOLUME 8.2 fl (7.5-11.1); NEUT % 58.9 % (42.8-82.8); PLATELET COUNT 309 10^3/uL (134-434); RBC 4.51 M/mm3 (3.60-5.2); RDW 13.3 % (11.6-15.6); WHITE BLOOD COUNT 8.3 K/mm3 (4.0-10.0)
[2020-09-06 18:01] VITALS: BP 117/77; PULSE 75; TEMP 98.7
[2020-09-06 18:17] LABS: ALBUMIN 3.8 g/dl (3.4-5.0); BLOOD UREA NITROGEN 9.4 mg/dL (7-18); CALCIUM 8.9 mg/dL (8.5-10.1)
[2020-09-06 18:21] LABS: CREATININE 0.6 mg/dL (0.55-1.3)
[2020-09-06 18:22] LABS: BILIRUBIN,TOTAL 0.5 mg/dL (0.2-1); TOT PROT 7.8 g/dl (6.4-8.2)
== END 2020-09-06 19:52 | disposition home or self-care (01) ==
LOC: JER 14:52
PROC: 3E033NZ Introduction of Analgesics, Hypnotics, Sedatives into Peripheral Vein, Percutaneous Approach (ICD-10-PCS; principal; 2020-09-06)
PROC: 3E033GC Introduction of Other Therapeutic Substance into Peripheral Vein, Percutaneous Approach (ICD-10-PCS; 2020-09-06)
DX: R51.9 Headache, unspecified (principal); R20.2 Paresthesia of skin
CPT/HCPCS: 36415; 80053; 85025; 96374; 96375; 99284-25

== ENCOUNTER 2020-11-29 20:02 | Emergency (ER) | payer OTHER ==
[2020-11-29 21:00] VITALS: BP 121/87; PULSE 85; TEMP 97.7; BMI 31.8
[2020-11-29] MEDS ORDERED: FLUORESCEIN NA 1 EA STRIP OS ONE (21:34)
[2020-11-29] MEDS ORDERED: TETRACAINE 0.5% HCL 0.6ML DROPPER.BOTTLE OS ONE (21:34)
[2020-11-29] MEDS ORDERED: TETRACAINE 0.5% OPHTH SOLN 2 ML BOTTLE ONE (21:40)
[2020-11-29] MEDS ORDERED: FLUORESCEIN NA 1 EA STRIP ONE (21:40)
== END 2020-11-29 21:52 | disposition home or self-care (01) ==
LOC: JERFT 20:02
DX: H57.12 Ocular pain, left eye (principal)
CPT/HCPCS: 99283-25

== ENCOUNTER 2023-07-31 12:55 | Emergency (ER) | payer OTHER ==
[2023-07-31 13:12] VITALS: BP 120/73; PULSE 81; RESP 18; TEMP 98.1; BMI 31.8
[2023-07-31] MEDS ORDERED: MAG HYDROX/AL HYDROX/SIMETH 30 ML UNIT-DOSE CUP ONE (13:41)
[2023-07-31] MEDS ORDERED: FAMOTIDINE 20 MG/50 ML IVPB 20 MG/50 ML MG IVPB ONE (13:41)
[2023-07-31] MEDS ORDERED: ACETAMINOPHEN INJECTION 100 ML IVPB ONE (13:41)
[2023-07-31] MEDS: SODIUM CHLORIDE 0.9% 500 ML INFUS.BAG IV ONE (13:50)
[2023-07-31] MEDS: ACETAMINOPHEN 1000 MG/100 ML BAG IVPB ONE (13:50)
[2023-07-31] MEDS: MAG HYDROX/AL HYDROX/SIMETH 30 ML UNIT-DOSE CUP PO ONE (13:50)
[2023-07-31] MEDS: FAMOTIDINE 20 MG/50 ML IVPB 20 MG/50 ML MG IVPB ONE (14:00)
[2023-07-31 14:01] LABS: HCG,QUALITATIVE URINE Negative
[2023-07-31 14:04] LABS: HEMATOCRIT 40.7 % (32.4-45.2); HEMOGLOBIN 13.5 G/dL (10.7-15.3); MCH 29.7 pg (25.7-33.7); MCHC 33.1 g/dl (32.0-36.0); MEAN CELL VOLUME 89.8 fl (80-96); MEAN PLT VOLUME 8.3 fl (7.5-11.1); PLATELET COUNT 309.8 10^3/uL (134-434); RBC 4.53 10^6/uL (3.60-5.2); RDW 13.8 % (11.6-15.6); WHITE BLOOD COUNT 5.8 10^3/uL (4.0-10.8)
[2023-07-31 14:11] LABS: ALK PHOS 67 U/L (45-117); ANION GAP 7 mmol/L (4-13); BILIRUBIN,TOTAL 0.4 mg/dl (0.2-1); CALCIUM 9.4 mg/dl (8.5-10.1); CHLORIDE 101 mmol/L (98-107); CO2 29 mmol/L (21-32); CREATININE 0.5 mg/dl (0.6-1.3); GLUCOSE,RANDOM 90 mg/dl (74-106); POTASSIUM 3.8 mmol/L (3.5-5.1); SGOT/AST 19 U/L (15-37); SGPT/ALT 19 U/L (7-52); SODIUM 137 mmol/L (136-145)
[2023-07-31 14:36] LABS: PLATELET ESTIMATE ADEQUATE
== END 2023-07-31 15:15 | disposition home or self-care (01) ==
LOC: FER 12:55
PROC: 3E033GC Introduction of Other Therapeutic Substance into Peripheral Vein, Percutaneous Approach (ICD-10-PCS; principal; 2023-07-31)
PROC: 3E033NZ Introduction of Analgesics, Hypnotics, Sedatives into Peripheral Vein, Percutaneous Approach (ICD-10-PCS; 2023-07-31)
DX: K21.9 Gastro-esophageal reflux disease without esophagitis (principal); K62.5 Hemorrhage of anus and rectum; K59.00 Constipation, unspecified; R10.12 Left upper quadrant pain; R10.13 Epigastric pain
CPT/HCPCS: 36415; 80053; 81003; 81015; 83690; 84703; 85027; 99284-25; J0131

== ENCOUNTER 2023-11-30 10:30 | Inpatient (IN) | payer BC, OTHER ==
[2023-12-02 13:43] VITALS: BMI 30.8
[2023-12-07] MEDS ORDERED: PROPOFOL 60 ML ONE ×4 (09:09→13:40)
[2023-12-07] MEDS ORDERED: ROCURONIUM BROMIDE 50 MG/5 ML SYRINGE ONE ×3 (09:10→13:00)
[2023-12-07] MEDS ORDERED: PHENYLEPHRINE HCL 10 MG/1 ML SINGLE DOSE VIAL ONE ×2 (09:12→09:17)
[2023-12-07] MEDS ORDERED: PROPOFOL 20 ML ONE ×3 (09:12→12:58)
[2023-12-07] MEDS ORDERED: MIDAZOLAM HCL 2 MG/2 ML SINGLE DOSE VIAL ONE ×2 (09:18→15:05)
[2023-12-07] MEDS ORDERED: ONDANSETRON 4 MG/2 ML VIAL ONE (09:20)
[2023-12-07] MEDS ORDERED: LIDOCAINE HCL/PF 2% SDV 5ML VIAL ONE (09:20)
[2023-12-07] MEDS ORDERED: DEXAMETHASONE SOD PHOSPHATE 4 MG/1 ML VIAL ONE (09:20)
[2023-12-07] MEDS ORDERED: EPINEPHrine/PF 1 MG/1 ML (1:1,000) AMPULE ONE (09:39)
[2023-12-07] MEDS ORDERED: BUPIVACAINE HCL/PF 0.25% (2.5MG/ML) 10 ML VIAL ONE (09:39)
[2023-12-07] MEDS ORDERED: BUPIVACAINE LIPOSOME/PF (EXPAREL) 266 MG/20 ML VIAL ONE (09:40)
[2023-12-07] MEDS ORDERED: ALBUTEROL SO4 HFA INHALER IH ONE (09:54)
[2023-12-07] MEDS ORDERED: ONDANSETRON 4 MG/2 ML VIAL IVPUSH PRN (09:57)
[2023-12-07] MEDS: ceFAZolin SODIUM 1 GM VIAL IVPB ONE (10:30)
[2023-12-07] MEDS ORDERED: TRANEXAMIC ACID 1000 MG/10 ML VIAL ONE ×2 (10:36→10:38)
[2023-12-07] MEDS ORDERED: ACETAMINOPHEN INJECTION 100 ML ONE (10:38)
[2023-12-07] MEDS ORDERED: HYDROmorphone HCl 2 MG/ML VIAL ONE ×2 (10:42→14:51)
[2023-12-07] MEDS ORDERED: HEPARIN NA (PORCINE) 5,000 UNITS/ML 1ML VIAL ONE (10:50)
[2023-12-07] MEDS: BUPIVACAINE HCL/PF 0.25% (2.5MG/ML) 10 ML VIAL IJ ONE ×2 (13:12)
[2023-12-07] MEDS: BUPIVACAINE LIPOSOME/PF (EXPAREL) 266 MG/20 ML VIAL NR ONE ×2 (13:12)
[2023-12-07] MEDS ORDERED: IBUPROFEN 800 MG/8 ML IJ IVPB PRN (13:31)
[2023-12-07] MEDS ORDERED: PROPOFOL 40 ML ONE (14:39)
[2023-12-07] MEDS ORDERED: SUGAMMADEX SODIUM 200 MG/2 ML VIAL ONE (14:59)
[2023-12-07] MEDS ORDERED: KETOROLAC TROMETHAMINE 30 MG/1 ML VIAL ONE (15:11)
[2023-12-07] MEDS ORDERED: METOPROLOL TARTRATE 5 MG/5 ML VIAL ONE (18:22)
[2023-12-07] MEDS: METOPROLOL TARTRATE 5 MG/5 ML VIAL IVPUSH ONE (18:25)
[2023-12-07] MEDS ORDERED: METOPROLOL TARTRATE 5 MG/5 ML VIAL IVPUSH PRN (20:08)
[2023-12-07] MEDS: LACTATED RINGERS SOLUTION 1,000 ML IV SCH (20:45)
[2023-12-07 20:57] LABS: HEMATOCRIT 36.1 % (32.4-45.2); HEMOGLOBIN 11.9 GM/dL (10.7-15.3); MEAN CELL VOLUME 87.9 fl (80-96); MEAN PLT VOLUME 8.3 fl (7.5-11.1); PLATELET COUNT 288 10^3/uL (134-434); RDW 13.4 % (11.6-15.6); WHITE BLOOD COUNT 16.7 K/mm3 (4.0-10.0)
[2023-12-07 21:07] LABS: POTASSIUM 4.3 mmol/L (3.5-5.1)
[2023-12-07 21:09] LABS: CALCIUM 8.4 mg/dL (8.5-10.1)
[2023-12-07 21:10] LABS: BLOOD UREA NITROGEN 7.7 mg/dL (7-18)
[2023-12-07 21:13] LABS: CREATININE 0.6 mg/dL (0.55-1.3)
[2023-12-07 21:14] LABS: BILIRUBIN,TOTAL 0.3 mg/dL (0.2-1)
[2023-12-07 21:15] LABS: TOT PROT 6.1 g/dl (6.4-8.2)
[2023-12-07] MEDS: CEFAZOLIN 1 GM in DEXTROSE 5%-WATER - 50 ML IVPB SCH (21:46)
[2023-12-07] MEDS: oxyCODONE HCL 5 MG TABLET PO PRN (23:16)
[2023-12-08] MEDS: TRANEXAMIC ACID 1000 MG/10 ML VIAL IVPUSH ONE (00:23)
[2023-12-08] MEDS: ROSUVASTATIN CA 10 MG TABLET PO SCH (00:23)
[2023-12-08] MEDS: ACETAMINOPHEN 1000 MG/100 ML BAG IVPB ONE (00:23)
[2023-12-08] MEDS ORDERED: CABERGOLINE 0.5 MG PO SCH (07:00)
[2023-12-08 08:16] LABS: BASO % 0.2 % (0-2.0); HEMATOCRIT 29.3 % (32.4-45.2); HEMOGLOBIN 9.9 GM/dL (10.7-15.3); LYMPH % 11.5 % (8-40); MCH 29.5 pg (25.7-33.7); MCHC 33.7 g/dl (32.0-36.0); MEAN CELL VOLUME 87.7 fl (80-96); MEAN PLT VOLUME 8.9 fl (7.5-11.1); MONO % 10.6 % (3.8-10.2); NEUT % 77.7 % (42.8-82.8); PLATELET COUNT 233 10^3/uL (134-434); RBC 3.34 M/mm3 (3.60-5.2); WHITE BLOOD COUNT 11.6 K/mm3 (4.0-10.0)
[2023-12-08 08:23] LABS: POTASSIUM 3.9 mmol/L (3.5-5.1)
[2023-12-08 08:25] LABS: CALCIUM 8.3 mg/dL (8.5-10.1)
[2023-12-08 08:26] LABS: ALBUMIN 2.6 g/dl (3.4-5.0)
[2023-12-08 08:29] LABS: CREATININE 0.5 mg/dL (0.55-1.3)
[2023-12-08 08:30] LABS: BILIRUBIN,TOTAL 0.5 mg/dL (0.2-1); TOT PROT 5.4 g/dl (6.4-8.2)
[2023-12-08] MEDS: ENOXAPARIN NA (PORCINE) 40 MG/0.4 ML DISP.SYRIN SQ SCH (10:22)
[2023-12-08] MEDS: oxyCODONE HCL 5 MG TABLET PO PRN (14:37)
[2023-12-09] MEDS: ONDANSETRON 4 MG/2 ML VIAL IVPUSH ONE (17:23)
[2023-12-09] MEDS: BISACODYL 10 MG SUPP.RECT PR ONE (17:23)
[2023-12-09 18:38] VITALS: BP 143/87; PULSE 115; RESP 19; TEMP 98.2
== END 2023-12-09 19:10 | disposition home or self-care (01) | DRG 743 ==
LOC: J2C 12-07 07:31 → J4S 12-07 21:05
PROVIDERS: ADMIT Obstetrics & Gynecology; ATTEND Obstetrics & Gynecology
PROC: 0W0F0ZZ Alteration of Abdominal Wall, Open Approach (ICD-10-PCS; 2023-12-07)
PROC: 0JD83ZZ Extraction of Abdomen Subcutaneous Tissue and Fascia, Percutaneous Approach (ICD-10-PCS; 2023-12-07)
PROC: 0UT90ZZ Resection of Uterus, Open Approach (ICD-10-PCS; principal; 2023-12-07 09:00)
PROC: 0UB70ZZ Excision of Bilateral Fallopian Tubes, Open Approach (ICD-10-PCS; 2023-12-07 09:00)
DX: N80.03 Adenomyosis of the uterus (principal); R10.2 Pelvic and perineal pain; N70.11 Chronic salpingitis; M95.8 Other specified acquired deformities of musculoskeletal system; D64.9 Anemia, unspecified
CPT/HCPCS: 36415; 80053; 81025; 85025; 85027; 86850; 86900; 86901; 88307-TC; 94760; J0131; J1644